=== PATIENT | female | born 1960 | race Two or more races ===

== ENCOUNTER 2021-01-01 12:39 | Outpatient (REF) | payer MEDICAID, SELFPAY ==
--- NOTE | ~2021-01-01 | MM_ITS ---
EXAMINATION: MM DIAGNOSTIC DIGITAL BREAST TOMOSYNTHESIS, RIGHT CLINICAL INFORMATION: Probable benign nodule 3:00 right breast for six-month follow-up. No known family history breast cancer. The lifetime risk of breast cancer based on the Tyrer-Cuzick Model is 4%. COMPARISON: Mammography: 07/04/2020, 06/13/2020 (BI-RADS 0), 02/28/2019; targeted ultrasound right breast 07/04/2020 TECHNIQUE: Digital breast tomosynthesis is performed in both the craniocaudal and mediolateral oblique views along with computer-aided detection (CAD). Synthesized 2D images are generated from the tomosynthesis. FINDINGS: There are scattered areas of fibroglandular density (ACR BI-RADS breast composition Category b). The nodular asymmetry mid 3:00 position is stable in size and contour. There is no developing density. No interval mass or architectural abnormality or abnormal calcifications. Remainder of the right breast is unremarkable. Results are provided to the patient at time of visit by the technologist. Right breast finding will be reassessed again at time of annual bilateral mammography, due in 6 months. MM/MM tomosynthesis diagnostic RT IMPRESSION: Stable nodular asymmetry mid 3:00 right breast. ASSESSMENT: BI-RADS 3: Probably Benign RECOMMENDATION: Diagnostic mammography at time of bilateral annual mammography, due in 6 months. This patient's information was entered into a reminder system with a target due date for their next mammogram.
== END 2021-01-01 12:40 | disposition home or self-care (01) ==
LOC: HO.MAMMO 12:39
PROVIDERS: PCP Family Medicine; Visit Provider Family Medicine
DX: N63.15 Unspecified lump in the right breast, overlapping quadrants (principal)
CPT/HCPCS: 77061; 77065

== ENCOUNTER 2021-07-09 10:14 | Outpatient (REF) | payer MEDICAID, SELFPAY | END 2021-07-09 10:15 | disposition home or self-care (01) | LOC: HO.LAB 10:14 | PROVIDERS: PCP Family Medicine; Visit Provider Internal Medicine | DX: Z20.822 Contact with and (suspected) exposure to COVID-19 (principal) | CPT/HCPCS: C9803; U0003; U0005 ==

== ENCOUNTER 2021-07-09 13:53 | Outpatient (REF) | payer MEDICAID, SELFPAY ==
--- NOTE | ~2021-07-09 | MM_ITS ---
EXAMINATION: MM DIAGNOSTIC DIGITAL BREAST TOMOSYNTHESIS, BILATERAL CLINICAL INFORMATION: Due for yearly. Also follow-up probable benign nodule mid medial right breast, probable benign ultrasound correlate. Assess for developing density. The lifetime risk of breast cancer based on the Tyrer-Cuzick Model is 4%. COMPARISON: Mammography: 01/01/2021, 07/04/2020, 06/13/2020 (BI-RADS 0), 02/28/2019, 02/18/2018, targeted right breast ultrasound 07/04/2020. TECHNIQUE: Digital breast tomosynthesis is performed in both the craniocaudal and mediolateral oblique views along with computer-aided detection (CAD). Synthesized 2D images are generated from the tomosynthesis. Additional left MLO view is provided. FINDINGS: The breasts are almost entirely fatty (ACR BI-RADS breast composition Category a). Background stromal densities are stable. There is no developing density. No significant mass or architectural abnormality. No abnormal calcifications. The axilla and skin contours are unremarkable. The nodular asymmetry central 3:00 mid right breast is stable, likely corresponding to small cyst on prior ultrasound. It will be reassessed again in 6 months. Results are provided to the patient at time of visit by the technologist. MM/MM tomosynthesis diagnostic BI IMPRESSION: 1. Right: No significant changes from prior diagnostic exams. No developing density. 2. Left: No mammographic evidence of malignancy. ASSESSMENT: BI-RADS 3: Probably Benign RECOMMENDATION: Diagnostic right mammography in 6 months. This patient's information was entered into a reminder system with a target due date for their next mammogram.
== END 2021-07-09 13:54 | disposition home or self-care (01) ==
LOC: HO.MAMMO 13:53
PROVIDERS: PCP Family Medicine; Visit Provider Family Medicine
DX: R92.2 Inconclusive mammogram (principal)
CPT/HCPCS: 77062; 77066

== ENCOUNTER 2021-10-29 08:54 | Outpatient (REF) | payer MEDICAID, SELFPAY ==
[2021-10-29 10:37] LABS: Hematocrit 38.5 % (37.0-47.0); Hemoglobin 12.3 g/dl (12.0-16.0); Mean Corpuscular HGB Conc 31.9 g/dl (31.0-35.0); Mean Corpuscular Hemoglobin 30.9 pg (27.0-33.0); Mean Corpuscular Volume 96.7 fL (80.0-98.0); Mean Platelet Volume 11.1 fL (9.4-12.3); Platelet Count 213 X10*3/uL (160-400); Red Blood Count 3.98 X10*6/uL (4.20-5.50); Red Cell Distribution Width 14.2 % (11.0-16.0); White Blood Count 6.1 X10*3/uL (4.8-10.8)
[2021-10-29 11:42] LABS: Alanine Aminotransferase 13 U/L (0-31); Albumin Level 3.8 g/dL (3.5-5.0); Alkaline Phosphatase 71 U/L (39-117); Anion Gap 8 (12-20); Aspartate Amino Transferase 20 U/L (5-31); Bilirubin Total 0.4 mg/dL (0.0-1.0); Blood Urea Nitrogen 14 mg/dL (9-16); Calcium 9.8 mg/dL (8.4-10.2); Carbon Dioxide 30 mmol/L (22-29); Chloride 109 mmol/L (96-108); Estimated Glomerular Filt Rate > 60; Glucose Random 101 mg/dL (60-115); Potassium 4.1 mmol/L (3.3-5.1); Sodium 143 mmol/L (135-145); Total Protein 7.6 g/dL (6.5-8.0)
[2021-11-03 05:41] LABS: Vitamin D 25-OH, D2 38 ng/mL; Vitamin D 25-OH, D3 6 ng/mL; Vitamin D 25-OH, Total 44 ng/mL (30-100)
== END 2021-10-29 08:55 | disposition home or self-care (01) ==
LOC: HO.LAB 08:54
PROVIDERS: PCP Family Medicine; Referring Provider Family Medicine; Visit Provider Nurse Practitioner Family
DX: K21.9 Gastro-esophageal reflux disease without esophagitis (principal); K59.03 Drug induced constipation; E55.9 Vitamin D deficiency, unspecified
CPT/HCPCS: 36415; 80053; 82306; 85027; 99202

== ENCOUNTER 2022-01-06 09:56 | Outpatient (REF) | payer MEDICAID, SELFPAY ==
--- NOTE | ~2022-01-06 | MM_ITS ---
EXAMINATION: MM DIAGNOSTIC DIGITAL BREAST TOMOSYNTHESIS, RIGHT US DIAGNOSTIC ULTRASOUND BREAST, RIGHT CLINICAL INFORMATION: Follow-up benign-appearing nodule medial right breast, possibly cyst on prior ultrasound. The lifetime risk of breast cancer based on the Tyrer-Cuzick Model is 4%. COMPARISON: Mammography: 12/29/2020, 07/04/2020, 06/13/2020 (BI-RADS 0), 02/28/2019; targeted right breast ultrasound 07/04/2020 TECHNIQUE: Digital breast tomosynthesis is performed in both the craniocaudal and mediolateral oblique views along with computer-aided detection (CAD). Synthesized 2D images are generated from the tomosynthesis. Additional spot CC and spot MLO views are obtained. Ultrasound right breast is targeted to the upper inner quadrant using grayscale imaging and color Doppler without and with harmonics. FINDINGS: There are scattered areas of fibroglandular density (ACR BI-RADS breast composition Category b). The focal asymmetric density mid inner right breast for follow-up appear slightly more prominent when compared with the prior exam 06/13/2020. Margins are incompletely visualized. The remainder of the right breast is unremarkable. There are no abnormal calcifications. The axilla and skin contours are unremarkable. Ultrasound demonstrates macrolobulated inhomogeneous hypoechoic predominantly cystic nodule 2:30 o'clock position 8 cm from nipple and measuring 0.7 cm. There is subtle increased through-transmission of sound. No visible internal color flow. Results are discussed with the patient at time of visit. Finding may represent a complicated cyst possibly with apocrine metaplasia and/or fibrocystic microcysts. Given the increase in size and inhomogeneous appearance on ultrasound, recommend ultrasound-guided core biopsy to confirm benignity. MM/MM tomosynthesis diagnostic RT IMPRESSION: -Focal nodular asymmetric density mid medial right breast slightly increased. Margins incompletely characterized. -There is ultrasound correlate in this area. ASSESSMENT: BI-RADS 4: Suspicious (subcategory 4A: Low suspicion for malignancy) RECOMMENDATION: Ultrasound-guided core biopsy right breast. This patient's information was entered into a reminder system with a target due date for their next mammogram.
== END 2022-01-06 09:57 | disposition home or self-care (01) ==
LOC: HO.MAMMO 09:56
PROVIDERS: PCP Family Medicine; Visit Provider Family Medicine
DX: R92.2 Inconclusive mammogram (principal)
CPT/HCPCS: 76642; 77061; 77065

== ENCOUNTER 2022-01-08 08:20 | Outpatient (REF) | payer MEDICAID, SELFPAY ==
--- NOTE | ~2022-01-08 | MM_ITS ---
EXAMINATION: ULTRASOUND GUIDED CORE BIOPSY BREAST, RIGHT POST PROCEDURE DIGITAL BREAST TOMOSYNTHESIS, RIGHT CLINICAL INFORMATION: Focal asymmetric density mid inner right breast on mammography with ultrasound correlate, possibly complicated cyst, fibrocystic microcysts, or apocrine metaplasia. COMPARISON: Mammography and targeted right breast ultrasound 01/06/2022. FINDINGS: Proper informed consent is obtained from the patient after discussion of the procedure, potential risks and complications, and alternatives. Patient was given an opportunity for questions. The patient appeared to understand. The patient consented to the procedure and signed the consent form. Consent and procedure assisted by hospital provided neurologist. GUIDANCE: Ultrasound-guided; aseptic technique. LESION: Hypoechoic complicated cystic lesion mid inner right breast measuring 0.7 cm. APPROACH: Oblique mediolateral. ANESTHESIA: 15 mL carbonated 1% lidocaine. DERMATOTOMY: Single skin rodney dermatotomy performed. NEEDLE: 14-gauge Achieve core biopsy device with 13.5-gauge co-axial guide needle. CORES: 5. CLIP: HydroMARK; shape: open coil. POST PROCEDURE DIGITAL BREAST TOMOSYNTHESIS, RIGHT: The post biopsy mammogram is performed in separate room using separate digital mammography equipment from the biopsy procedure. CC and ML views are obtained. Synthesized 2-D images are generated from the tomography. There are scattered areas of fibroglandular density (breast composition category: b). The clip marker is in position expected position. It is difficult to visualize the index lesion following local anesthesia and tissue sampling. No gross hematoma. The patient tolerated the procedure well. No immediate complications. Home instructions reviewed with the patient. Final pathology results are pending. MM/MM tomosynthesis diagnostic RT IMPRESSION: 1. Status post ultrasound-guided core biopsy right breast. 2. Clip placed: HydroMARK; shape: open coil. 3. Pathology pending. An addendum report will be issued.
[2022-01-08] MEDS: Lidocaine HCl 1 % 20 ML VIAL 12 ML SUBCUT (11:48)
[2022-01-08] MEDS: Sodium Bicarbonate 8.4% 50 MEQ/50 ML VIAL SUBCUT (11:49)
== END 2022-01-08 08:21 | disposition home or self-care (01) ==
LOC: HO.MAMMO 08:20
PROVIDERS: PCP Family Medicine; Visit Provider Surgery
DX: N63.15 Unspecified lump in the right breast, overlapping quadrants (principal); Z80.41 Family history of malignant neoplasm of ovary
CPT/HCPCS: 19083; 77061; 77065; 88305; 88341; 88342; 88360; 99202; A4648

== ENCOUNTER → 2022-01-15 09:26 | Outpatient (BNVA) | payer MEDICAID, SELFPAY | PROVIDERS: PCP Family Medicine; Visit Provider Surgery | DX: D05.10 Intraductal carcinoma in situ of unspecified breast (principal); Z17.0 Estrogen receptor positive status [ER+]; N63.10 Unspecified lump in the right breast, unspecified quadrant; E66.9 Obesity, unspecified; Z68.38 Body mass index [BMI] 38.0-38.9, adult; Z80.41 Family history of malignant neoplasm of ovary | CPT/HCPCS: 99212 ==

== ENCOUNTER → 2022-01-20 15:54 | Outpatient (BNV) | payer MEDICAID, OTHER, SELFPAY | PROVIDERS: PCP Family Medicine; Referring Provider Surgery; Visit Provider Internal Medicine | DX: D05.11 Intraductal carcinoma in situ of right breast (principal) | CPT/HCPCS: 99204; 99214; G2211 ==

== ENCOUNTER 2022-01-21 06:52 | Day surgery (SDC) | payer MEDICAID, SELFPAY ==
--- NOTE | 2022-01-20 09:36 | HO.ANESPROP2 ---
Documented by User: Lexi Kim NP 01/20/22 09:37 HPI - Anesthesia Eval Consult details Narrative: 61yo F for Right Breast Lumpectomy/Needle Loc PMFSH Active Problems Active Problems: All Active Problems (Updated 01/15/22 @ 09:32 by Ivan Valdes MD) Ductal carcinoma in situ (DCIS) of breast (Acute) Family history of ovarian cancer (Acute) Breast nodule (Acute) Past Medical History Medical History Allergic rhinitis Arthritis Breast nodule Depression Ductal carcinoma in situ (DCIS) of breast Family history of ovarian cancer GERD (gastroesophageal reflux disease) Obesity Family History Family History Sister Ovarian cancer HTN (hypertension) Hyperlipidemia Surgical History Surgical History Hx of cholecystectomy Hx of colonoscopy Hx of tubal ligation Social History Social History (Updated 01/20/22 @ 16:09 by Trice Zepeda PROMOTIONAL MARKETING ANALYST) Household Members: Spouse and Children [facility] Are you a primary career developer to a significant other at home: No Do you presently have visiting nurse or other home services: No Alcohol intake: current Alcohol intake frequency: does not drink Patient Tobacco Use Status: Former Tobacco user Quit Date: 1991 Tobacco use type: Cigarette Years Smoked: 5 Smoked in Last 30 Days: No Use of substances other than those prescribed or required for medical reasons: No Are you DNR?: No Advance Directives: No Advance Directives Information Provided: Yes service: No Current occupational status: disabled Meds Allergies Allergy/AdvReac Type Severity Reaction Status Date / Time No Known Allergies Allergy Verified 01/21/22 07:37 [No Known Allergies*] Home Medications Medication Instructions Recorded Confirmed Last Taken Type bupropion HCl 100 mg tablet,12 hr 100 mg PO BEDTIME 10/28/21 01/20/22 Unknown History sustained-release (Wellbutrin SR) bupropion HCl 150 mg 24 hr tablet, 150 mg PO QAM 10/28/21 01/20/22 Unknown History extended release (Wellbutrin XL) clonazepam 1 mg tablet 1 mg PO BEDTIME 10/28/21 01/20/22 Unknown History duloxetine 60 mg capsule,delayed 60 mg PO DAILY 10/28/21 01/20/22 Unknown History release (Cymbalta) famotidine 20 mg tablet (Pepcid) 20 mg PO DAILY 10/28/21 01/20/22 Unknown History fluticasone propionate 50 1 inh INHALATION BID 10/28/21 01/20/22 Unknown History mcg/actuation blister powder for inhalation gabapentin 300 mg capsule 300 mg PO DAILY 10/28/21 01/20/22 Unknown History loratadine 10 mg tablet (Claritin) 10 mg PO DAILY 10/28/21 01/20/22 Unknown History nabumetone 500 mg tablet 500 mg PO BID 10/28/21 01/20/22 Unknown History omeprazole 20 mg capsule,delayed 20 mg PO DAILY 10/28/21 01/20/22 Unknown History release simethicone 125 mg chewable tablet 125 mg PO TID PRN 10/28/21 01/20/22 Unknown History (Gas Relief (simethicone)) ferrous gluconate 324 mg (38 mg 324 mg PO DAILY 01/08/22 01/20/22 01/20/22 History iron) tablet gabapentin 400 mg capsule 400 mg PO TID 01/08/22 01/20/22 Unknown History Exam Exam Date and Time: January 20, 2022 0936 Pertinent Lab Results Pertinent Lab Results: Laboratory Tests 10/29/21 10/29/21 10:00 10:00 WBC 6.1 Hgb 12.3 Hct 38.5 Plt Count 213 Sodium 143 Potassium 4.1 Chloride 109 H Carbon Dioxide 30 H BUN 14 Creatinine 0.89 Assessment and Plan Assessment Anesthesia Assessment: Chart Reviewed Documented by User: Roshan Altamirano MD 01/21/22 09:50 [facility] Past Medical History Medical History Allergic rhinitis Arthritis Breast nodule Depression Ductal carcinoma in situ (DCIS) of breast Family history of ovarian cancer GERD (gastroesophageal reflux disease) Obesity Family History Family History Sister Ovarian cancer HTN (hypertension) Hyperlipidemia Family history of problems with anesthesia: No Surgical History Surgical History Hx of cholecystectomy Hx of colonoscopy Hx of tubal ligation History of Problems with Anesthesia: No Social History Social History (Updated 01/20/22 @ 16:09 by Trice Zepeda CMA) Household Members: Spouse and Children [facility] Are you a primary career developer to a significant other at home: No Do you presently have visiting nurse or other home services: No Alcohol intake: current Alcohol intake frequency: does not drink Patient Tobacco Use Status: Former Tobacco user Quit Date: 1991 Tobacco use type: Cigarette Years Smoked: 5 Smoked in Last 30 Days: No Use of substances other than those prescribed or required for medical reasons: No Are you DNR?: No Advance Directives: No Advance Directives Information Provided: Yes service: No Current occupational status: disabled Meds Allergies Allergy/AdvReac Type Severity Reaction Status Date / Time No Known Allergies Allergy Verified 01/21/22 07:37 [No Known Allergies*] Home Medications Medication Instructions Recorded Confirmed Last Taken Type bupropion HCl 100 mg tablet,12 hr 100 mg PO BEDTIME 10/28/21 01/20/22 Unknown History sustained-release (Wellbutrin SR) bupropion HCl 150 mg 24 hr tablet, 150 mg PO QAM 10/28/21 01/20/22 Unknown History extended release (Wellbutrin XL) clonazepam 1 mg tablet 1 mg PO BEDTIME 10/28/21 01/20/22 Unknown History duloxetine 60 mg capsule,delayed 60 mg PO DAILY 10/28/21 01/20/22 Unknown History release (Cymbalta) famotidine 20 mg tablet (Pepcid) 20 mg PO DAILY 10/28/21 01/20/22 Unknown History fluticasone propionate 50 1 inh INHALATION BID 10/28/21 01/20/22 Unknown History mcg/actuation blister powder for inhalation gabapentin 300 mg capsule 300 mg PO DAILY 10/28/21 01/20/22 Unknown History loratadine 10 mg tablet (Claritin) 10 mg PO DAILY 10/28/21 01/20/22 Unknown History nabumetone 500 mg tablet 500 mg PO BID 10/28/21 01/20/22 Unknown History omeprazole 20 mg capsule,delayed 20 mg PO DAILY 10/28/21 01/20/22 Unknown History release simethicone 125 mg chewable tablet 125 mg PO TID PRN 10/28/21 01/20/22 Unknown History (Gas Relief (simethicone)) ferrous gluconate 324 mg (38 mg 324 mg PO DAILY 01/08/22 01/20/22 01/20/22 History iron) tablet gabapentin 400 mg capsule 400 mg PO TID 01/08/22 01/20/22 Unknown History Exam Airway Mallampati Class: I TM Dist: >3cm Neck ROM: Full Loose/Missing/Broken Teeth: Yes Heart: ok Lungs: ok Assessment and Plan Final Anesthetic Review Family History of Problems with Anesthesia: No History of Problems with Anesthesia: No ASA Class: II Final Preanesthetic Review: No Changes in Pt Med Stat, Meds/Allgs Chart Reviewed, Consent Obtained/Reviewed and Anes Risks/Benef Reviewed Patient Risk: Low Procedure Risk: Low Anesthetic Plan Anesthetic Plan: GA and Agree w/ Assess. and Plan Disposition: Standard PACU
[2022-01-21] VITALS (7 sets, daily range): BP systolic 125–140; BP diastolic 67–80; PULSE 52–60; RESP 16–18; TEMP 36.3–36.6; O2SAT 98–100; BMI 37.9
--- NOTE | ~2022-01-21 | MM_ITS ---
EXAMINATION: MM DIAGNOSTIC DIGITAL MAMMOGRAPHY, RIGHT CLINICAL INFORMATION: Specimen radiograph following lumpectomy. COMPARISON: Mammography: January 08, 2022 and 01/06/2022. TECHNIQUE: Specimen radiograph. FINDINGS: There are scattered areas of fibroglandular density (ACR BI-RADS breast composition Category b). The localization needle and wire is seen; however, marking clip is not included within the specimens. Vascular calcifications which were adjacent to the clip are included within the specimen The above information was called to the operating room to Dr. Valdes. MM/MM diagnostic mammo unilat LT IMPRESSION: Specimen radiograph does not include marking clip. ASSESSMENT: BI-RADS (Post Biopsy Clip Placement) RECOMMENDATION: Await pathology report to ensure that the targeted specimen lies within the tissue. If not, then repeat mammogram with localization of marking clip is recommended.
--- NOTE | ~2022-01-21 | US_ITS ---
PROCEDURE: US-GUIDED BREAST NEEDLE LOCALIZATION, RIGHT CLINICAL INFORMATION: Intraductal carcinoma in situ right breast 2 o'clock position, 8 cm from the nipple. COMPARISON: 01/08/2022 and 01/06/2022. TECHNIQUE: Ultrasound-guided needle localization. FINDINGS/PROCEDURE: There were technical difficulties with the mammographic unit and, therefore, needle localization with mammography was not performed. Ultrasound-guided needle localization was performed. Informed consent was obtained from the patient prior to the procedure. During this process, the procedure and potential alternatives were explained, along with the intended outcome and benefits. The risks of the procedure, as well as the risk of not doing the procedure, were discussed. The patient was given the opportunity to ask questions regarding the procedure and appeared competent to make medical decisions. A signed consent form which documents this discussion was placed in the medical record. Using sterile technique and ultrasound guidance, a Winchester needle was directed from a superior medial approach through the irregular marginated hypoechoic mass containing radiopaque marking clip. The wire was deployed and was seen to coil distal to the lesion. The needle was locked in place. US/US breast needle loc RT IMPRESSION: Needle localization of right breast lesion 2 o'clock position.
[2022-01-21] MEDS: Lactated Ringers 1,000 ML 100 ML IVCONT (07:26)
[2022-01-21] MEDS: Lidocaine HCl 1 % 20 ML VIAL 3 ML SUBCUT (09:42)
--- NOTE | 2022-01-21 09:47 | MHC.SHP ---
Pre-Procedural Eval Section A Date of Service: 01/21/22 The patient is an INPATIENT: No Changes since office visit: No Cold of Flu in the past 2 weeks, No New Medical Problems, No Changes in Medication and No Patient answered all questions The History & Physical has been completed within 30 days and I have reviewed it.: Yes Section B Chief Complaint: carcinoma in situ of breast hx malignant Allergies: Allergies Allergy/AdvReac Type Severity Reaction Status Date / Time No Known Allergies Allergy Verified 01/21/22 07:37 [No Known Allergies*] Plan I have reviewed the history and physical and performed a pertinent physical examination on my patient. No changes have occurred unless specified.
[2022-01-21] MEDS: fentaNYL citrate/PF 100 MCG/2 ML VIAL 50 MCG IVPUSH (11:36)
--- NOTE | 2022-01-21 11:37 | W.PM.OPN ---
Operative Note Operative Note Date of Service: 01/21/22 Narrative: Preop diagnosis: DCIS, right breast Postop diagnosis: DCIS right breast Procedure: Lumpectomy with needle localization, with excision of additional margins, right breast Surgeon: Ivan Valdes MD circulation assistant: OBDULIA Robert The patient is a 61 year female who had an US guided biopsy of right breast nodule showing DCIS. She is therefore here to proceed with lumpectomy with needle localization. She understood the technique of the procedure and she was aware of the risks, benefits, and alternatives. The patient had undergone needle localization prior to being brought to the OR. I had reviewed this with Dr. Morris of Radiology. Unfortunately, the mammogram machine was down so there were no mammogram pictures taken to correlate with needle localization with the ultrasound. Dr. Morris had stated that was visualization of the lesion and the clip with ultrasound was not as optimal as the mammogram pictures. He however stated that he was confident that the localizing needle was through the biopsy site. She was brought to the operating room. She was placed in spine position under general anesthesia via laryngeal mask airway. The right breast was prepped and draped in usual sterile fashion. The localizing needle was in place and this was prepped along with the breast as well. The localizing needle entered almost perpendicular to the breast on the medial aspect and going just slightly laterally. A surgical time-out was done. The patient received cefazolin 2 g IV preoperatively. I marked the planned line of incision was tangential to the entry point of the needle. This was done using lidocaine 1%. I made an incision using blade 15. And this was carried down with electrocautery through the full-thickness of the skin subcutaneous fat down to the breast tissue. I then used the curved Chu to divide breast tissue surrounding the needle circumferentially. Periodically palpated for the localizing needle as we divided deeper to make sure that we were going the right direction. I proceeded to then make sure that generous tissue surrounding the needle all the way past the needle in the posterior and deep margins. I completed excision of this breast tissue surrounding the needle and this was sent for immediate re-ray and immediate gross. I had marked the superior margin with a short stitch in the lower margin with a long stitch. I his irrigated the excision cavity. I cauterized oozing areas. There was 1 particular area with persistent oozing and I controlled this with a [id number] Dexon 3-0 stitch. Once hemostasis was ensured I proceeded to reapposed deep breast tissue with Dexon 3-0 interrupted sutures We then awaited for a phone call from the radiologist as well as the pathologist. We received a phone call from the radiologist stating that the biopsy clip was not seen in the specimen. We therefore we open the excision site and reexcise generous and wider margins. I therefore resubmitted for margins on the 1)superior medial, 2) lateral and 3)inferior/deep. We then observed for hemostasis on the large cavity. Cauterized oozing areas. Once hemostasis was ensured, I copiously irrigated. We reapposed breast tissue again with Dexon 3-0 interrupted sutures. Skin closure was achieved with Dexon 4-0 subcuticular running stitch. The incision was infiltrated with Marcaine 0.5% for postop analgesia. Prior to the closing, I had rediscussed the re-ray of of the additional margins with the radiologist. He could not identify the biopsy clip on the additional margins. I had discussed this as well with the pathologist. Since we already had excise of very large amount of breast tissue, I decided that we will await for the final path report to see if biopsy site is within the specimens. I had informed the pathologist with about this as well. Dressings were applied. The incision was infiltrated with Marcaine 0.5% for postop analgesia and the procedure was completed The patient tolerated procedure well. There were no complication noted. Initial final counts of sponges and instruments were correct. Estimated blood loss was about 50 cc . The patient was extubated without difficulty and transferred to the recovery room with stable vital signs.
[2022-01-21] MEDS: Ketorolac Tromethamine 30 MG/ML VIAL 15 MG IVPUSH (11:41)
[2022-01-21] MEDS: oxyCODONE HCl Immed Release 5 MG TABLET PO (11:46)
[2022-01-21] MEDS: Acetaminophen 325 MG TABLET 650 MG PO (11:46)
== END 2022-01-21 13:17 | disposition home or self-care (01) ==
PROVIDERS: PCP Family Medicine; Visit Provider Surgery
PROC: (CPT 19301; principal; 2022-01-21 09:00)
DX: D05.11 Intraductal carcinoma in situ of right breast (principal); Z17.0 Estrogen receptor positive status [ER+]; Z80.41 Family history of malignant neoplasm of ovary; J31.0 Chronic rhinitis; F32.9 Major depressive disorder, single episode, unspecified; K21.9 Gastro-esophageal reflux disease without esophagitis; E66.9 Obesity, unspecified; Z68.38 Body mass index [BMI] 38.0-38.9, adult; Z90.49 Acquired absence of other specified parts of digestive tract; Z98.51 Tubal ligation status; Z87.891 Personal history of nicotine dependence
CPT/HCPCS: 19301; 19285; 77065; 88307; 88329; 88341; 88342; 88360; A4648; J0690; J1885; J2250; J3010

== ENCOUNTER → 2022-02-12 15:40 | Outpatient (BNVA) | payer MEDICAID, SELFPAY | PROVIDERS: PCP Family Medicine; Visit Provider Surgery | DX: Z48.3 Aftercare following surgery for neoplasm (principal); D05.11 Intraductal carcinoma in situ of right breast | CPT/HCPCS: 99212 ==

== ENCOUNTER → 2022-02-26 09:14 | Outpatient (BNVA) | payer MEDICAID, SELFPAY | PROVIDERS: PCP Family Medicine; Referring Provider Family Medicine; Visit Provider Surgery | DX: D05.10 Intraductal carcinoma in situ of unspecified breast (principal); Z80.41 Family history of malignant neoplasm of ovary | CPT/HCPCS: 99212 ==

== ENCOUNTER 2022-03-03 12:47 | Outpatient (REF) | payer MEDICAID, SELFPAY ==
--- NOTE | ~2022-03-03 | MM_ITS ---
EXAMINATION: MM DIAGNOSTIC DIGITAL BREAST TOMOSYNTHESIS, RIGHT CLINICAL INFORMATION: DCIS status post ultrasound-guided needle localization and excision 01/21/2022. Biopsy clip marker is not found in the excised specimen. Short interval follow-up to assess for clip marker in breast. COMPARISON: Mammography: 01/08/2022, 01/06/2022, ultrasound right breast 01/06/2022, ultrasound-guided core biopsy 01/08/2022, ultrasound-guided needle localization 01/21/2022; specimen radiographs 01/21/2022. TECHNIQUE: Digital breast tomosynthesis is performed in both the craniocaudal and mediolateral views along with computer-aided detection (CAD). Synthesized 2D images are generated from the tomosynthesis. FINDINGS: There are scattered areas of fibroglandular density (ACR BI-RADS breast composition Category b). There are postoperative changes with minor scarring. There is a hematoma/seroma within the lumpectomy site, bilobed contour and overall size approximately 3.3 x 3.3 x 4.7 cm. The biopsy clip marker is not visualized. The remainder of the right breast is unremarkable. Results are provided to the patient at time of visit by the technologist. Results called to medical insurance claims specialist (Marta) for Dr. Valdes on 03/03/2022. MM/MM tomosynthesis diagnostic RT IMPRESSION: -Post lumpectomy changes central inner right breast with hematoma/seroma measuring approximately 3.3 x 3.3 x 4.7 cm. -The biopsy clip marker from the original ultrasound-guided tissue sampling is not demonstrated in the right breast. ASSESSMENT: BI-RADS 2: Benign RECOMMENDATION: Continue with surgical management plans. This patient's information was entered into a reminder system with a target due date for their next mammogram.
== END 2022-03-03 12:48 | disposition home or self-care (01) ==
LOC: HO.MAMMO 12:47
PROVIDERS: Visit Provider Surgery
DX: D05.10 Intraductal carcinoma in situ of unspecified breast (principal)
CPT/HCPCS: 77061; 77065

== ENCOUNTER 2022-04-08 06:50 | Day surgery (SDC) | payer MEDICAID, SELFPAY ==
--- NOTE | 2022-04-07 10:55 | P.CONAN_ITS ---
Documented by User: Lexi Kim NP 04/07/22 11:05 HPI - Anesthesia Eval Consult details Narrative: 61yo F for Right Breast Excision for wider margins s/p lumpectomy 12/2021 with GA-ETT 7 PMFSH Active Problems Active Problems: All Active Problems (Updated 01/20/22 @ 16:09 by Thania Cazares MD) Ductal carcinoma in situ (DCIS) of breast (Acute) Family history of ovarian cancer (Acute) Breast nodule (Acute) Past Medical History Medical History Allergic rhinitis Arthritis Breast nodule Depression Ductal carcinoma in situ (DCIS) of breast Family history of ovarian cancer GERD (gastroesophageal reflux disease) Obesity Family History Family History Sister Ovarian cancer HTN (hypertension) Hyperlipidemia Family history of problems with anesthesia: No Surgical History Surgical History History of lumpectomy of right breast Hx of cholecystectomy Hx of colonoscopy Hx of tubal ligation History of Problems with Anesthesia: No Social History Social History Household Members: Spouse and Children [facility] Are you a primary direct care provider to a significant other at home: No Do you presently have visiting nurse or other home services: No Alcohol intake: current Alcohol intake frequency: does not drink Patient Tobacco Use Status: Former Tobacco user Quit Date: 30 yrs ago Tobacco use type: Cigarette Years Smoked: 5 Use of substances other than those prescribed or required for medical reasons: No Are you DNR?: No Advance Directives: No Advance Directives Information Provided: Yes service: No Current occupational status: disabled Meds Allergies Allergy/AdvReac Type Severity Reaction Status Date / Time No Known Allergies Allergy Verified 04/02/22 13:32 [No Known Allergies*] Home Medications Medication Instructions Recorded Confirmed Last Taken Type bupropion HCl 100 mg tablet,12 hr 100 mg PO BEDTIME 10/28/21 04/07/22 Unknown History sustained-release (Wellbutrin SR) bupropion HCl 150 mg 24 hr tablet, 150 mg PO QAM 10/28/21 04/07/22 Unknown History extended release (Wellbutrin XL) clonazepam 1 mg tablet 1 mg PO BEDTIME 10/28/21 04/07/22 Unknown History duloxetine 60 mg capsule,delayed 60 mg PO DAILY 10/28/21 04/07/22 Unknown History release (Cymbalta) famotidine 20 mg tablet (Pepcid) 20 mg PO DAILY 10/28/21 04/07/22 Unknown History fluticasone propionate 50 1 inh INHALATION BID 10/28/21 04/07/22 Unknown History mcg/actuation blister powder for inhalation (Flovent Diskus) loratadine 10 mg tablet (Claritin) 10 mg PO DAILY 10/28/21 04/07/22 Unknown History nabumetone 500 mg tablet 500 mg PO BID 10/28/21 04/07/22 Unknown History omeprazole 20 mg capsule,delayed 20 mg PO DAILY 10/28/21 04/07/22 Unknown History release simethicone 125 mg chewable tablet 125 mg PO TID PRN 10/28/21 04/07/22 Unknown History (Gas Relief (simethicone)) ferrous gluconate 324 mg (38 mg 324 mg PO DAILY 01/08/22 04/07/22 01/20/22 History iron) tablet gabapentin 400 mg capsule 400 mg PO TID 01/08/22 04/07/22 Unknown History Exam Exam Date and Time: April 07, 2022 1055 Pertinent Lab Results Pertinent Lab Results: Laboratory Tests ? 10/29/21 10/29/21 ? 10:00 10:00 WBC ?6.1 ? Hgb ?12.3 ? Hct ?38.5 ? Plt Count ?213 ? Sodium ? ?143 Potassium ? ?4.1 Chloride ? ?109 H Carbon Dioxide ? ?30 H BUN ? ?14 Creatinine ? ?0.89 Assessment and Plan Assessment Anesthesia Assessment: Chart Reviewed Final Anesthetic Review Family History of Problems with Anesthesia: No History of Problems with Anesthesia: No Documented by User: Oliver Perales MD 04/08/22 10:37 [facility] Past Medical History Medical History Allergic rhinitis Arthritis Breast nodule Depression Ductal carcinoma in situ (DCIS) of breast Family history of ovarian cancer GERD (gastroesophageal reflux disease) Obesity Family History Family History Sister Ovarian cancer HTN (hypertension) Hyperlipidemia Surgical History Surgical History History of lumpectomy of right breast Hx of cholecystectomy Hx of colonoscopy Hx of tubal ligation Social History Social History Household Members: Spouse and Children [facility] Are you a primary direct care provider to a significant other at home: No Do you presently have visiting nurse or other home services: No Alcohol intake: current Alcohol intake frequency: does not drink Patient Tobacco Use Status: Former Tobacco user Quit Date: 30 yrs ago Tobacco use type: Cigarette Years Smoked: 5 Use of substances other than those prescribed or required for medical reasons: No Are you DNR?: No Advance Directives: No Advance Directives Information Provided: Yes service: No Current occupational status: disabled Meds Allergies Allergy/AdvReac Type Severity Reaction Status Date / Time No Known Allergies Allergy Verified 04/02/22 13:32 [No Known Allergies*] Home Medications Medication Instructions Recorded Confirmed Last Taken Type bupropion HCl 100 mg tablet,12 hr 100 mg PO BEDTIME 10/28/21 04/07/22 Unknown History sustained-release (Wellbutrin SR) bupropion HCl 150 mg 24 hr tablet, 150 mg PO QAM 10/28/21 04/07/22 Unknown History extended release (Wellbutrin XL) clonazepam 1 mg tablet 1 mg PO BEDTIME 10/28/21 04/07/22 Unknown History duloxetine 60 mg capsule,delayed 60 mg PO DAILY 10/28/21 04/07/22 Unknown History release (Cymbalta) famotidine 20 mg tablet (Pepcid) 20 mg PO DAILY 10/28/21 04/07/22 Unknown History fluticasone propionate 50 1 inh INHALATION BID 10/28/21 04/07/22 Unknown History mcg/actuation blister powder for inhalation (Flovent Diskus) loratadine 10 mg tablet (Claritin) 10 mg PO DAILY 10/28/21 04/07/22 Unknown History nabumetone 500 mg tablet 500 mg PO BID 10/28/21 04/07/22 Unknown History omeprazole 20 mg capsule,delayed 20 mg PO DAILY 10/28/21 04/07/22 Unknown History release simethicone 125 mg chewable tablet 125 mg PO TID PRN 10/28/21 04/07/22 Unknown History (Gas Relief (simethicone)) ferrous gluconate 324 mg (38 mg 324 mg PO DAILY 01/08/22 04/07/22 01/20/22 History iron) tablet gabapentin 400 mg capsule 400 mg PO TID 01/08/22 04/07/22 Unknown History Exam Airway Mallampati Class: I TM Dist: >3cm Neck ROM: Full Loose/Missing/Broken Teeth: Yes Assessment and Plan Assessment Anesthesia Assessment: Anesthesia Plan Discussed Final Anesthetic Review NPO: Yes ASA Class: III Final Preanesthetic Review: No Changes in Pt Med Stat, Meds/Allgs Chart Reviewed, Consent Obtained/Reviewed and Anes Risks/Benef Reviewed Patient Risk: Intermediate Procedure Risk: Low Anesthetic Plan Anesthetic Plan: GA Disposition: Standard PACU
[2022-04-08] VITALS (7 sets, daily range): BP systolic 118–139; BP diastolic 65–80; PULSE 56–71; RESP 16–171; TEMP 36.3–36.7; O2SAT 97–100; BMI 38.0
[2022-04-08] MEDS: Lactated Ringers 1,000 ML 100 ML IVCONT (08:03)
--- NOTE | 2022-04-08 08:38 | P.HPSUR_ITS ---
Pre-Procedural Eval Section A Date of Service: 04/08/22 Section B Chief Complaint: Intraductal carcinoma in situ of breast Details of Present Illness: had lumpectomy localization for DCIS last December,. margins were closed on the deep and inferior aspect so excision is re commended for wider margins Relevant Family History (Specify if Yes): No Relevant Social History: None Present Medications: see Short Stay Collaborative assessment Medical History: Significant History ( depression, GERD symptoms) Allergies: Allergies Allergy/AdvReac Type Severity Reaction Status Date / Time No Known Allergies Allergy Verified 04/02/22 13:32 [No Known Allergies*] Review of Systems Sugical H&P ROS: Negative: Constitution, Cardiovascular, Respiratory, Neurological, Psychiatric, Hem-Onc, Allergic/Immunologic, Gastrointestinal, Genitourinary, Musculoskeletal, Integumentary, Endocrine and Eyes/Ears/Nose/Throat Exam Surgical H&P Exam: Normal: HEENT, Normal: Heart, Normal: Lungs, Normal: Extremities, Normal: Abdomen, Normal: Skin and Normal: Neurological Plan Diagnosis/Plan: Unchanged I have reviewed the history and physical and performed a pertinent physical examination on my patient. No changes have occurred unless specified.
--- NOTE | 2022-04-08 09:54 | W.PM.OPN ---
Operative Note Operative Note Date of Service: 04/08/22 Narrative: Preop diagnosis: Status post lumpectomy, right breast, for DCIS with close margins Postop diagnosis: The same Procedure: Re-excision for wider margins, deep, inferior, right breast Surgeon: Ivan Valdes MD hardware sales assistant: OBDULIA Lopez The patient is a 61-year-old female who had undergone right breast lumpectomy with needle localization last December, for DCIS. The final path report showed the margins were negative but there were close margins on the inferior and deep aspect of the lumpectomy specimen. She understands the technique of re-excision for wider margins. She was aware of the risks, benefits, and alternatives. She was brought to the operating room and placed supine on the table under general anesthesia via laryngeal mask airway. The right breast was prepped and draped in usual sterile fashion. A surgical time-out was done. the patient received cefazolin 2 g IV preoperatively.The previous incision was on the medial aspect. I infiltrated this area with lidocaine 1%. I made the Incision using blade 15. Along this old incision and this was carried down through the full-thickness of the skin and subcutaneous fat with electrocautery. I then used the curved Chu scissors to divide breast tissue in the inferior aspect of the incision. I extended this the grasping breast tissue with the Allis clamp until I was able to reach the very deep margin. This was right on the chest wall and I divided this with the curved Chu scissors and continued circumferentially to excise this entire area. This was sent as specimen. I examined the The excision site. There was note of pain from the chest wall on the raw exposed pectoralis muscle . I cauterized this to achieve hemostasis. I copiously irrigated. Once hemostasis was ensured, I reapposed the deep tissue with Dexon 3-0 interrupted sutures. Skin closure was then achieved with Dexon 4-0 subcuticular running stitch. The area was infiltrated with Marcaine 0.5% for postop analgesia. Steri-Strips were placed. Dressings were applied and the procedure was completed The patient tolerated the procedure well. There were no complications noted. Initial and final counts of sponges and instruments were correct. Estimated blood loss was about 25 cc The patient was extubated without difficulty and transferred to the recovery room with stable vital signs.
[2022-04-08] MEDS: Acetaminophen 325 MG TABLET 650 MG PO (10:43)
== END 2022-04-08 11:40 | disposition home or self-care (01) ==
PROVIDERS: PCP Family Medicine; Visit Provider Surgery
PROC: (CPT 19120; principal; 2022-04-08 09:10)
DX: D05.11 Intraductal carcinoma in situ of right breast (principal); R07.89 Other chest pain; K21.9 Gastro-esophageal reflux disease without esophagitis; J30.9 Allergic rhinitis, unspecified; Z79.51 Long term (current) use of inhaled steroids; Z79.899 Other long term (current) drug therapy; Z87.891 Personal history of nicotine dependence; Z80.41 Family history of malignant neoplasm of ovary
CPT/HCPCS: 19301; 88307; J0690; J1100; J2250; J2405; J3010

== ENCOUNTER → 2022-05-06 11:58 | Outpatient (BNVA) | payer MEDICAID, SELFPAY | PROVIDERS: PCP Family Medicine; Visit Provider Nurse Practitioner Family | DX: K21.9 Gastro-esophageal reflux disease without esophagitis (principal); K59.01 Slow transit constipation; Z79.899 Other long term (current) drug therapy | CPT/HCPCS: 99212 ==

== ENCOUNTER 2022-06-17 13:36 | Outpatient (REF) | payer MEDICAID, SELFPAY ==
--- NOTE | ~2022-06-17 | MM_ITS ---
EXAMINATION: BONE DENSITOMETRY CLINICAL INDICATION: Hormonal therapy. COMPARISON: Baseline BD dated 01/18/2010. TECHNIQUE: Using a [employer] DXA System (software version: 13.1) manufactured by [employer], dual-energy x-ray absorptiometry was performed of the lumbar spine and left hip. The images are of good technical quality. Summary results are attached. FINDINGS: AP SPINE L2-L4 (excluding L1): The data of L1-L4 has been changed to exclude the L1 vertebral body, because degenerative changes at this level may cause overestimation of lumbar spine density. Current: BMD 1.299 g/cm2, Z-score 1.2, T-score 0.8, normal, 5.1% decrease from baseline (<5% change is not significant). Baseline: BMD 1.369 g/cm2. LEFT FEMUR, NECK: Current: BMD 0.834 g/cm2, Z-score -0.8, T-score -1.5, osteopenia. Baseline: BMD 1.300 g/cm2. LEFT FEMUR, TOTAL: Current: BMD 0.864 g/cm2, Z-score -0.9, T-score -1.1, osteopenia, 33.0% decrease from baseline (<5% change is not significant). Baseline: BMD 1.290 g/cm2. IDENTIFIED RISK FACTORS: Menopause. HISTORY OF FRACTURE: None listed. MEDICATIONS: Calcium. MM/XR DEXA axial skeleton IMPRESSION: 1. DIAGNOSIS: Osteopenia based on the lowest T-score value of -1.5 in the femoral neck applying World Health Organization criteria. 2. 10-YEAR FRACTURE RISK PREDICTION, FRAX: Major osteoporotic fracture (clinical spine, forearm, hip or shoulder) 4.3%. Hip fracture 0.4%. 3. Treatment Recommendations: NOF guidelines recommend consideration for treatment in postmenopausal women and men age 50 and older presenting with the following: -A hip or vertebral (clinical or morphometric) fracture. -T-score less than or equal to -2.5 at the femoral neck or spine after appropriate evaluation to exclude secondary causes. -Low bone mass at the hip or spine and a 10-year fracture probability by FRAX of greater than or equal to 3% for hip fracture or greater than or equal to 20% for major osteoporotic fracture based on the [place] adapted WHO algorithm. 4. Other Recommendations: All treatment decisions require clinical judgment and consideration of individual patient factors, including patient preferences, comorbidities, previous drug use, risk factors not captured in the FRAX model (e.g. frailty, falls, vitamin D deficiency, increased bone turnover, interval significant decline in bone density) and possible under or overestimation of fracture risk by FRAX. Additional medical evaluation for secondary cause of low bone mineral density may be appropriate. FUTURE SCAN RECOMMENDATION: People with diagnosed cases of osteoporosis or at high risk for fracture should have regular bone mineral density tests. For patients eligible for Medicare, routine testing is allowed once every 2 years. The testing frequency can be increased to one year for patients who have rapidly progressing disease, those who are receiving or discontinuing medical therapy to restore bone mass, or have additional risk factors.
== END 2022-06-17 13:37 | disposition home or self-care (01) ==
LOC: HO.MAMMO 13:36
PROVIDERS: PCP Family Medicine; Visit Provider Internal Medicine
DX: Z13.820 Encounter for screening for osteoporosis (principal); M85.80 Other specified disorders of bone density and structure, unspecified site; Z78.0 Asymptomatic menopausal state
CPT/HCPCS: 77080

== ENCOUNTER → 2022-10-22 11:24 | Outpatient (BNVA) | payer MEDICAID, SELFPAY | PROVIDERS: PCP Family Medicine; Visit Provider Surgery | DX: D05.11 Intraductal carcinoma in situ of right breast (principal); Z79.811 Long term (current) use of aromatase inhibitors; Z92.3 Personal history of irradiation | CPT/HCPCS: 99212 ==

== ENCOUNTER 2022-11-27 15:04 | Outpatient (REF) | payer MEDICAID, SELFPAY ==
--- NOTE | ~2022-11-27 | US_ITS ---
EXAMINATION: US VENOUS ULTRASOUND WITH DOPPLER LOWER EXTREMITY, RIGHT CLINICAL INFORMATION: Varicose veins. Pain. COMPARISON: None TECHNIQUE: Ultrasound of the deep veins is performed from the hip to the calf with compression sonography and color and pulse Doppler assessment. Spectral analysis with color-flow imaging is performed. FINDINGS: There is normal venous compression and respiratory variation and augmented flow. The visualized common femoral vein, superficial femoral vein, profunda femoral vein, popliteal vein, and the trifurcation region shows no evidence of deep venous thrombosis. There is no significant popliteal fossa cyst. If the patient's symptoms persist, followup ultrasound in 5 days 7 days might be of value to exclude proximal propagation from a non-visualized calf vein. US/US venous duplex LE RT IMPRESSION: No DVT demonstrated in the right lower extremity.
== END 2022-11-27 15:05 | disposition home or self-care (01) ==
LOC: HO.US 15:04
PROVIDERS: PCP Family Medicine; Visit Provider Internal Medicine
DX: R52 Pain, unspecified (principal)
CPT/HCPCS: 93971

== ENCOUNTER → 2022-12-01 10:32 | Outpatient (BNVA) | payer MEDICAID, SELFPAY | PROVIDERS: PCP Family Medicine; Visit Provider Nurse Practitioner Family | DX: K21.9 Gastro-esophageal reflux disease without esophagitis (principal); K59.01 Slow transit constipation; Z86.010 Personal history of colon polyps; Z79.899 Other long term (current) drug therapy | CPT/HCPCS: 99212 ==

== ENCOUNTER 2022-12-15 13:00 | Outpatient (REF) | payer MEDICAID, SELFPAY ==
--- NOTE | ~2022-12-15 | XR_ITS ---
EXAMINATION: XR LUMBOSACRAL SPINE CLINICAL INFORMATION: Low back pain COMPARISON: Previous x-ray February 2016 TECHNIQUE: Three views of the lumbosacral spine. FINDINGS: Bone alignment is normal. No fracture or dislocation. Normal disc spaces. Degenerative spondylosis of the lower thoracic and upper lumbar spine. Lower lumbar spine facet arthritis. Degenerative changes of the left hip joint. XR/XR lumbar spine 2-3V IMPRESSION: Degenerative changes.
--- NOTE | ~2022-12-15 | XR_ITS ---
EXAMINATION: XR HIP, LEFT CLINICAL INFORMATION: Pain COMPARISON: None TECHNIQUE: Two views of the left hip. FINDINGS: No fracture or dislocation. Mild to moderate arthritis with joint space narrowing and osteophyte formation. Normal soft tissues. XR/XR hip LT min 2V IMPRESSION: Mild to moderate arthritis.
[2022-12-15 14:51] LABS: Vitamin D 25-OH Total 28.6 ng/mL (>30)
== END 2022-12-15 13:01 | disposition home or self-care (01) ==
LOC: HO.XRAY 13:00
PROVIDERS: PCP Family Medicine; Visit Provider Family Medicine
DX: M54.42 Lumbago with sciatica, left side (principal); E66.09 Other obesity due to excess calories; Z68.36 Body mass index [BMI] 36.0-36.9, adult
CPT/HCPCS: 36415; 72100; 73502; 82306

== ENCOUNTER → 2023-01-27 10:25 | Outpatient (BNVA) | payer MEDICAID, SELFPAY | PROVIDERS: PCP Family Medicine; Visit Provider Surgery Vascular Surgery | DX: I83.11 Varicose veins of right lower extremity with inflammation (principal); Z85.3 Personal history of malignant neoplasm of breast; Z80.0 Family history of malignant neoplasm of digestive organs | CPT/HCPCS: 99202 ==

== ENCOUNTER 2023-01-30 08:18 | Outpatient (REF) | payer MEDICAID, SELFPAY ==
--- NOTE | ~2023-01-30 | US_ITS ---
EXAMINATION: US LOWER EXTREMITY VENOUS (REFLUX EXAM), BILATERAL CLINICAL INDICATION: Varicose veins with inflammation COMPARISON: None. TECHNIQUE: Color flow triplex imaging and compression Doppler was performed to evaluate both the deep and the superficial systems bilaterally. To evaluate the superficial system, the examination was performed in the upright position. Color-flow Doppler ultrasound and compression ultrasound were utilized. In addition, maneuvers were utilized to demonstrate reflux. FINDINGS: 1. DEEP VENOUS ULTRASOUND OF THE RIGHT LOWER EXTREMITY: Common Femoral Vein: Compressible, normal respiratory variation and augmented flow. Femoral Vein: Compressible, normal color flow and augmentation. Popliteal Vein: Compressible, normal augmentation. Deep Reflux: Reflux in the popliteal vein 1456 ms There is no evidence of a Oliveira's cyst. 2. SUPERFICIAL ULTRASOUND WITH DOPPLER OF RIGHT LOWER EXTREMITY: GREAT SAPHENOUS VEIN: Saphenofemoral Junction: 0.7 cm; Reflux: 0 ms Proximal Thigh: 0.3 cm; Reflux: 0 ms Mid Thigh: 0.2 cm; Reflux: 0 ms Above Knee: 0.1 cm; Reflux: 0 ms At Knee: 0.2 cm; Reflux: 0 ms Below Knee: 0.2 cm; Reflux: 2748 ms Mid Calf: 0.1 cm; Reflux: 1328 ms Ankle: 0.2 cm; Reflux: 0 ms DUPLICATED MEDIAL GREAT SAPHENOUS VEIN: Diameter: None Imaged Reflux: NA DUPLICATED LATERAL GREAT SAPHENOUS VEIN: Diameter: 0.4cm Reflux: NA SMALL SAPHENOUS VEIN: Proximal: 0.7 cm; Reflux: 2420 ms Distal: 0.3 cm; Reflux: 2288 ms VEIN OF GIACOMINI: None Imaged. PERFORATORS: Location: Mid thigh Size: 0.1cm Reflux: NA VARICOSITIES: Location: SSV mid Size: 0.3cm Reflux: 2420ms Location: SSV Size: 0.4cm Reflux: 2464 3. DEEP VENOUS ULTRASOUND OF THE LEFT LOWER EXTREMITY: Common Femoral Vein: Compressible, normal respiratory variation and augmented flow. Femoral Vein: Compressible, normal color flow and augmentation. Popliteal Vein: Compressible, normal augmentation. Deep Reflux: There is no evidence of reflux in the deep system in either the common femoral vein or the popliteal vein. There is no evidence of a Oliveira's cyst. 4. SUPERFICIAL ULTRASOUND WITH DOPPLER OF LEFT LOWER EXTREMITY: GREAT SAPHENOUS VEIN: Saphenofemoral Junction: 1.0 cm; Reflux: 0 ms Proximal Thigh: 0.2 cm; Reflux: 0 ms Mid Thigh: 0.2 cm; Reflux: 0 ms Above Knee: 0.2 cm; Reflux: 0 ms At Knee: 0.2 cm; Reflux: 1984 ms Below Knee: 0.2 cm; Reflux: 2284 ms Mid Calf: 0.2 cm; Reflux: 2604 ms Ankle: 0.1 cm; Reflux: 2448 ms DUPLICATED MEDIAL GREAT SAPHENOUS VEIN: Diameter: None Imaged Reflux: NA DUPLICATED LATERAL GREAT SAPHENOUS VEIN: Diameter: 0.3cm Reflux: NA SMALL SAPHENOUS VEIN: Proximal: 0.3 cm; Reflux: 0 ms Distal: 0.2 cm; Reflux: 0 ms VEIN OF GIACOMINI: None Imaged. PERFORATORS: Location: Mid calf Size: 0.2 Reflux: NA Location: Mid calf Size: NA Reflux: 2452ms VARICOSITIES: Location: ASV Size: 0.3cm Reflux: 752ms US/US venous duplex LE BI IMPRESSION: 1. Right small saphenous venous insufficiency. 2. Left great saphenous venous insufficiency below the knee. 3. Bilateral small saphenous venous insufficiency. 4. Bilateral refluxing varicosities. 5. No evidence of DVT.
== END 2023-01-30 08:19 | disposition home or self-care (01) ==
LOC: HO.US 08:18
PROVIDERS: PCP Family Medicine; Visit Provider Surgery Vascular Surgery
DX: I83.893 Varicose veins of bilateral lower extremities with other complications (principal)
CPT/HCPCS: 93970

== ENCOUNTER → 2023-02-19 10:30 | Outpatient (BNVA) | payer MEDICAID, SELFPAY | PROVIDERS: PCP Family Medicine; Visit Provider Surgery Vascular Surgery | DX: I83.11 Varicose veins of right lower extremity with inflammation (principal) | CPT/HCPCS: 99212 ==

== ENCOUNTER 2023-03-04 10:12 | Outpatient (REF) | payer MEDICAID, SELFPAY ==
--- NOTE | ~2023-03-04 | MM_ITS ---
EXAMINATION: MM DIAGNOSTIC DIGITAL BREAST TOMOSYNTHESIS, BILATERAL CLINICAL INFORMATION: Right DCIS status post ultrasound-guided needle localization and excision 01/21/2022. Radiation concluded in 2021. Due for yearly. COMPARISON: Mammography: 03/03/2022, 01/21/2022, 01/08/2022, 01/06/2022, 07/09/2021, 01/01/2021, 06/13/2020. TECHNIQUE: Digital breast tomosynthesis is performed in both the craniocaudal and mediolateral oblique views along with computer-aided detection (CAD). Synthesized 2D images are generated from the tomosynthesis. Additional magnification right CC and magnification right LM views are obtained. FINDINGS: There are scattered areas of fibroglandular density (ACR BI-RADS breast composition Category b). There are post therapy changes on the right with reduced breast size and scarring posterior medial right breast. The postoperative seroma/hematoma is substantially decreased from prior imaging 03/03/2022. The left breast shows no significant changes from prior studies. There is no significant mass or developing density or architectural abnormality. No abnormal calcifications. The axilla are unremarkable. Results are provided to the patient at time of visit by the technologist. Recommend short interval six-month follow-up right mammography to follow the postsurgical changes. MM/MM tomosynthesis diagnostic BI IMPRESSION: -No mammographic evidence of malignancy. -Post therapy changes right breast, decreased. ASSESSMENT: BI-RADS 3: Probably Benign RECOMMENDATION: Diagnostic right mammography in 6 months. This patient's information was entered into a reminder system with a target due date for their next mammogram.
== END 2023-03-04 10:13 | disposition home or self-care (01) ==
LOC: HO.MAMMO 10:12
PROVIDERS: PCP Family Medicine; Visit Provider Nurse Practitioner Family
DX: Z12.31 Encounter for screening mammogram for malignant neoplasm of breast (principal)
CPT/HCPCS: 77062; 77066

== ENCOUNTER → 2023-04-08 08:06 | Day surgery (SDC) | payer MEDICAID, SELFPAY ==
[2023-04-06 15:11] VITALS: BMI 37.8
--- NOTE | 2023-04-07 12:08 | P.CONAN_ITS ---
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) Family history of ovarian cancer (Acute) Breast nodule (Acute) Past Medical History Medical History Allergic rhinitis Arthritis Breast nodule Depression Ductal carcinoma in situ (DCIS) of breast Family history of ovarian cancer GERD (gastroesophageal reflux disease) History of ductal carcinoma in situ (DCIS) of breast Obesity Family History Family History Sister Ovarian cancer HTN (hypertension) Hyperlipidemia Family history of problems with anesthesia: No Surgical History Surgical History History of lumpectomy of right breast Hx of cholecystectomy Hx of colonoscopy Hx of tubal ligation History of Problems with Anesthesia: No Social History Social History Household Members: Spouse and Children [facility] Are you a primary child care lead teacher to a significant other at home: No Do you presently have visiting nurse or other home services: No Alcohol intake: current Alcohol intake frequency: does not drink Patient Tobacco Use Status: Former Tobacco user Quit Date: 30 yrs ago Tobacco use type: Cigarette Years Smoked: 5 Second Hand Smoke Exposure: No Use of substances other than those prescribed or required for medical reasons: No Are you DNR?: No Advance Directives: No Advance Directives Information Provided: Yes Advance Directives on File: No service: No Current occupational status: disabled Meds Allergies Allergy/AdvReac Type Severity Reaction Status Date / Time No Known Allergies Allergy Verified 02/24/23 13:25 [No Known Allergies*] Home Medications Medication Instructions Recorded Confirmed Last Taken Type bupropion HCl 100 mg tablet,12 hr 100 mg PO BEDTIME 10/28/21 02/24/23 Unknown History sustained-release (Wellbutrin SR) clonazepam 1 mg tablet 1 mg PO BEDTIME 10/28/21 02/24/23 Unknown History duloxetine 60 mg capsule,delayed 60 mg PO DAILY 10/28/21 02/24/23 Unknown History release (Cymbalta) loratadine 10 mg tablet (Claritin) 10 mg PO DAILY 10/28/21 02/24/23 Unknown History nabumetone 500 mg tablet 500 mg PO BID 10/28/21 02/24/23 Unknown History simethicone 125 mg chewable tablet 125 mg PO TID PRN Constipation 10/28/21 02/24/23 Unknown History (Gas Relief (simethicone)) gabapentin 400 mg capsule 400 mg PO TID 01/08/22 02/24/23 Unknown History bupropion HCl 150 mg 24 hr tablet, 150 mg PO QAM 02/19/23 02/24/23 Unknown History extended release cholecalciferol (vitamin D3) 50 50 mcg PO QAM 02/19/23 02/24/23 Unknown History mcg (2,000 unit) capsule cyclobenzaprine 5 mg tablet 5 mg PO BEDTIME 02/19/23 02/24/23 Unknown History Exam Exam Date and Time: April 07, 2023 1208 Height,Weight and Vital Signs: Height 5 ft 4 in Weight 99.79 kg Pertinent Lab Results Pertinent Lab Results: Laboratory Tests 02/24/23 02/24/23 13:40 13:40 WBC 5.5 Hgb 9.6 L Hct 31.3 L Plt Count 261 Sodium 143 Potassium 4.3 Chloride 109 H Carbon Dioxide 27 BUN 11 Creatinine 0.85 Assessment and Plan Assessment Anesthesia Assessment: Chart Reviewed Final Anesthetic Review Family History of Problems with Anesthesia: No History of Problems with Anesthesia: No Documented by User: Karol Mayer MD 04/08/23 08:55 [facility] Past Medical History Medical History Allergic rhinitis Arthritis Breast nodule Depression Ductal carcinoma in situ (DCIS) of breast Family history of ovarian cancer GERD (gastroesophageal reflux disease) History of ductal carcinoma in situ (DCIS) of breast Obesity Family History Family History Sister Ovarian cancer HTN (hypertension) Hyperlipidemia Surgical History Surgical History History of lumpectomy of right breast Hx of cholecystectomy Hx of colonoscopy Hx of tubal ligation Social History Social History Household Members: Spouse and Children [facility] Are you a primary child care lead teacher to a significant other at home: No Do you presently have visiting nurse or other home services: No Alcohol intake: current Alcohol intake frequency: does not drink Patient Tobacco Use Status: Former Tobacco user Quit Date: 30 yrs ago Tobacco use type: Cigarette Years Smoked: 5 Second Hand Smoke Exposure: No Use of substances other than those prescribed or required for medical reasons: No Are you DNR?: No Advance Directives: No Advance Directives Information Provided: Yes Advance Directives on File: No service: No Current occupational status: disabled Meds Allergies Allergy/AdvReac Type Severity Reaction Status Date / Time No Known Allergies Allergy Verified 02/24/23 13:25 [No Known Allergies*] Home Medications Medication Instructions Recorded Confirmed Last Taken Type bupropion HCl 100 mg tablet,12 hr 100 mg PO BEDTIME 10/28/21 02/24/23 Unknown History sustained-release (Wellbutrin SR) clonazepam 1 mg tablet 1 mg PO BEDTIME 10/28/21 02/24/23 Unknown History duloxetine 60 mg capsule,delayed 60 mg PO DAILY 10/28/21 02/24/23 Unknown History release (Cymbalta) loratadine 10 mg tablet (Claritin) 10 mg PO DAILY 10/28/21 02/24/23 Unknown History nabumetone 500 mg tablet 500 mg PO BID 10/28/21 02/24/23 Unknown History simethicone 125 mg chewable tablet 125 mg PO TID PRN Constipation 10/28/21 02/24/23 Unknown History (Gas Relief (simethicone)) gabapentin 400 mg capsule 400 mg PO TID 01/08/22 02/24/23 Unknown History bupropion HCl 150 mg 24 hr tablet, 150 mg PO QAM 02/19/23 02/24/23 Unknown History extended release cholecalciferol (vitamin D3) 50 50 mcg PO QAM 02/19/23 02/24/23 Unknown History mcg (2,000 unit) capsule cyclobenzaprine 5 mg tablet 5 mg PO BEDTIME 02/19/23 02/24/23 Unknown History Exam Airway Mallampati Class: II Partial: Upper (left at home) Heart: rrr Lungs: cta Assessment and Plan Assessment Anesthesia Assessment: Anesthesia Plan Discussed and Chart Reviewed Final Anesthetic Review NPO: Yes ASA Class: II and III Final Preanesthetic Review: No Changes in Pt Med Stat, Meds/Allgs Chart Reviewed and Consent Obtained/Reviewed Patient Risk: Intermediate Procedure Risk: Intermediate Anesthetic Plan Anesthetic Plan: MAC: Disposition: Standard PACU
[2023-04-08 08:51] VITALS: BP 134/71; PULSE 73; RESP 16; TEMP 36.6; O2SAT 100
[2023-04-08] MEDS: Lactated Ringers 1,000 ML 100 ML IVCONT (08:59)
--- NOTE | 2023-04-08 09:04 | MHC.SHP ---
Pre-Procedural Eval Section A Date of Service: 04/08/23 Section B Chief Complaint: Encounter for screening for malignant neoplasm Relevant Family History (Specify if Yes): No Relevant Social History: None Present Medications: see Short Stay Collaborative assessment Medical History: Significant History (Allergic rhinitis Arthritis Breast nodule Depression Ductal carcinoma in situ (DCIS) of breast Family history of ovarian cancer GERD (gastroesophageal reflux disease) History of ductal carcinoma in situ (DCIS) of breast Obesity) History of Previous Operations: Relevant previous surgery/procedure and date(s) (History of lumpectomy of right breast Hx of cholecystectomy Hx of colonoscopy Hx of tubal ligation) Allergies: Allergies Allergy/AdvReac Type Severity Reaction Status Date / Time No Known Allergies Allergy Verified 02/24/23 13:25 [No Known Allergies*] Review of Systems Sugical H&P ROS: Negative: Constitution, Cardiovascular, Respiratory, Neurological, Psychiatric, Hem-Onc, Allergic/Immunologic, Gastrointestinal, Genitourinary, Musculoskeletal, Integumentary, Endocrine and Eyes/Ears/Nose/Throat Exam Surgical H&P Exam: Normal: HEENT, Normal: Heart, Normal: Lungs, Normal: Extremities, Normal: Abdomen, Normal: Skin and Normal: Neurological Plan Diagnosis/Plan: Unchanged I have reviewed the history and physical and performed a pertinent physical examination on my patient. No changes have occurred unless specified. Time Spent With Patient Time: Total time managing care of this patient today ____ minutes.
--- NOTE | 2023-04-08 09:48 | W.PM.OPN ---
Operative Note Operative Note Date of Service: 04/08/23 Narrative: Operative Information Procedure Description: Colonoscopy Indication: screening Anesthesia: MAC COLONOSCOPY Instrument: Olympus variable stiffness pediatric scope 190L Colonoscopy Monitoring: Vital signs and clinical assessment, continuous EKG monitoring, Pulse oximetry, Carbon Dioxide monitoring and blood pressure monitoring were done throughout the procedure. Colon withdrawal time was 9 minutes. Procedure: The patient was placed in the left lateral decubitis position and pre-procedure medications were administered. After a digital rectal examination of the ano-rectum, the video colonoscope was inserted into the rectum and advanced through the colon to the cecum/TI. The colonoscope was slowly withdrawn in a retrograde panoramic fashion and the colon mucosa was carefully examined including a retroflexed view of the rectum. Findings and interventions are described below. Procedure Difficulty: easy Findings: Terminal Ileum-normal Cecum:normal Ascending Colon: few diverticula seen Transverse Colon -normal Descending Colon:normal Sigmoid Colon: 7-8 mm sessile polyp removed with cold snare Rectum: Retroflexion with small internal hemorrhoids, grade I Anorectum - normal Colon preparation: [place] Bowel Preparation Scale Right colon; 2 Transverse colon: 2 Left colon; 2 (0 = Unprepared colon segment with mucosa not seen due to solid stool that cannot be cleared. 1 = Portion of mucosa of the colon segment seen, but other areas of the colon segment not well seen due to staining, residual stool and/or opaque liquid. 2 = Minor amount of residual staining, small fragments of stool and/or opaque liquid, but mucosa of colon segment seen well. 3 = Entire mucosa of colon segment seen well with no residual staining, small fragments of stool or opaque liquid) Impression and Post Procedure Diagnosis: polyps internal hemorrhoids diverticular disease Plan: High fiber diet leaflet Avoid straining at stool, epsom salts and sitz bath, anusol supps or cream Repeat Colonoscopy in 5-6 years or earlier if clinically indicated Above findings were reviewed with the patient and relevant handouts were provided if indicated.
[2023-04-08 10:18] VITALS: BP 124/61; PULSE 65; RESP 16; TEMP 36.1; O2SAT 99
[2023-04-08 10:33] VITALS: BP 131/69; PULSE 64; RESP 14; O2SAT 99
[2023-04-08 10:43] VITALS: BP 132/72; PULSE 65; RESP 12; TEMP 36.6; O2SAT 99
== END | disposition home or self-care (01) ==
PROVIDERS: PCP Family Medicine; Visit Provider Internal Medicine Gastroenterology
PROC: 0DJD8ZZ Inspection of Lower Intestinal Tract, Via Natural or Artificial Opening Endoscopic (ICD-10-PCS; CPT 45378; principal; 2023-04-08 10:10)
DX: Z12.11 Encounter for screening for malignant neoplasm of colon (principal); Z86.010 Personal history of colon polyps; D12.5 Benign neoplasm of sigmoid colon; K57.30 Diverticulosis of large intestine without perforation or abscess without bleeding; K64.0 First degree hemorrhoids; K59.01 Slow transit constipation; K21.9 Gastro-esophageal reflux disease without esophagitis; D05.11 Intraductal carcinoma in situ of right breast; Z79.811 Long term (current) use of aromatase inhibitors; Z80.41 Family history of malignant neoplasm of ovary; J30.9 Allergic rhinitis, unspecified; E66.9 Obesity, unspecified; Z68.37 Body mass index [BMI] 37.0-37.9, adult; Z79.899 Other long term (current) drug therapy; Z90.49 Acquired absence of other specified parts of digestive tract; Z98.51 Tubal ligation status; Z87.891 Personal history of nicotine dependence
CPT/HCPCS: 45385; 88305

== ENCOUNTER → 2023-04-20 10:00 | Outpatient (BNVA) | payer MEDICAID, SELFPAY | PROVIDERS: PCP Family Medicine; Visit Provider Surgery | DX: Z86.000 Personal history of in-situ neoplasm of breast (principal) | CPT/HCPCS: 99212 ==

== ENCOUNTER 2023-04-28 14:01 | Outpatient (AMB) | payer MEDICAID, SELFPAY ==
--- NOTE | 2023-04-28 14:13 | MHC.OFFVIS ---
Intake Vital Signs 04/28/23 14:15 Height 5 ft 4 in Weight 220 lb BMI 37.8 BP 134/74 Blood Pressure Location Lt brachial Position Sitting Pulse 69 Intake Visit Reasons: S/p colo-Lau Intake Note: Sari galvan in office as a est.patient for a post-op f/u for colonoscopy pt got colo done 6.05.24 PT CC: Patient denies having any GI issues or concerns today. Appraisal Analyst Required: Yes Appraisal Analyst Name: Hallie [id number] Allergies No Known Allergies [No Known Allergies*] Allergy (Verified 04/28/23 14:17) HPI S/p colo-Lau HPI Details LAST VISIT Screen for colon cancer History of tubular adenoma in November of 2017. Patient is due for colorectal screening. Discussed with patient the importance of good bowel prep and what to expect before during and after the procedure. Prep sent to pharmacy. Patient denies any melena, hematochezia, unintentional weight loss or ribbon like stools. Discussed with patient clear liquid diet day before the procedure. GERD (gastroesophageal reflux disease) Continue avoiding dietary triggers in late night snacking. Staying upright for minimum 3 hours after meals discussed with patient. Patient reports that her symptoms are only occasional depending on what she eats. Constipation Continue docusate sodium. Patient will increase Senokot 2 tablets every evening. Patient is aware that she needs to move her bowels better especially that she will be going for colonoscopy. I will see her after the procedure. Patient was instructed to call us sooner if she will have any GI concerning symptoms. Patient is agreeable to this plan and verbalizes understanding of instructions. She was given the opportunity to ask questions all questions answered. ? Thank you for allowing me to participate in her care Plan Medications New bisacodyl (Dulcolax (bisacodyl)) take 2 tabs at noon the day before your colonoscopy 10 mg (2 x 5 mg) PO ONCE 1 day 2 tabs 0RF Z12.11 polyethylene glycol 3350 (Miralax) As directed by gastroenterology department at [facility] 238 grams PO ONCE 238 grams 0RF Z12.11 Changed From sennosides (Natural Senna Laxative) 8.6 mg PO BEDTIME 90 tabs 3RF constipation K59.00 To sennosides (Natural Senna Laxative) 17.2 mg (2 x 8.6 mg) PO BEDTIME 180 tabs 3RF constipation K59.00 COLONOSCOPY Findings: Terminal Ileum-normal Cecum:normal Ascending Colon: few diverticula seen Transverse Colon -normal Descending Colon:normal Sigmoid Colon:? 7-8 mm sessile polyp removed with cold snare Rectum: Retroflexion with small internal hemorrhoids, grade I Anorectum - normal Colon preparation: [place] Bowel Preparation Scale Right colon; 2 Transverse colon: 2 Left colon; 2 (0 = Unprepared colon segment with mucosa not seen due to solid stool that cannot be cleared. 1 = Portion of mucosa of the colon segment seen, but other areas of the colon segment not well seen due to staining, residual stool and/or opaque liquid. 2 = Minor amount of residual staining, small fragments of stool and/or opaque liquid, but mucosa of colon segment seen well. 3 = Entire mucosa of colon segment seen well with no residual staining, small fragments of stool or opaque liquid) Impression and Post Procedure Diagnosis: polyps internal hemorrhoids diverticular disease Plan: High fiber diet leaflet Avoid straining at stool, epsom salts and sitz bath, anusol supps or cream Repeat Colonoscopy in 5-6 years or earlier if clinically indicated PATHOLOGY RESULTS Diagnosis Colon, sigmoid, polyp:? Tubular adenoma; negative for high-grade dysplasia and carcinoma. TODAY'S VISIT: Patient is here today for follow-up and to discuss colonoscopy results. Patient denies any ill effects from the prep, anesthesia or procedure itself. Patient reports to be feeling well. Denies any melena, hematochezia, unintentional weight loss or ribbon like stools. Colonoscopy results discussed with patient. Patient reports that she moves her bowels, however she feels like she is constipated. Does not feel like she empties her bowels completely. Patient denies any dyspepsia, dysphagia or odynophagia. [facility] Medical History (Updated 05/01/23 @ 15:45 by Thania Cazares MD) Allergic rhinitis Arthritis Breast nodule Depression Ductal carcinoma in situ (DCIS) of breast Family history of ovarian cancer GERD (gastroesophageal reflux disease) History of ductal carcinoma in situ (DCIS) of breast Obesity Tubular adenoma Surgical History History of lumpectomy of right breast Hx of cholecystectomy Hx of colonoscopy Hx of tubal ligation Family History Sister Ovarian cancer HTN (hypertension) Hyperlipidemia Social History Household Members: Spouse and Children Housing: Condominium Are you a primary acute care nursing assistant to a significant other at home: No Do you presently have visiting nurse or other home services: No Alcohol intake: current Alcohol intake frequency: does not drink Patient Tobacco Use Status: Former Tobacco user Quit Date: 30 yrs ago Tobacco use type: Cigarette Years Smoked: 5 Second Hand Smoke Exposure: No Use of substances other than those prescribed or required for medical reasons: No Have you been hit, kicked, punched, or otherwise hurt by someone within the past year? If so, by whom?: No Do you feel safe in your current relationship?: Yes Do you have thoughts of harming others: None Do you have a plan to hurt others: No Plan Do you have the means to hurt others: No Recently lost weight without trying: No service: No Current occupational status: disabled Female Reproductive History Menstrual Age of Menarche: 12 Review of Systems Const Denies weight gain and Denies weight loss ENT Reports no additional complaints, Denies dysphagia and Denies odynophagia Card Reports no additional complaints Resp Reports no additional complaints GI Denies abdominal pain, Denies belching, Denies melena, Denies bloating, Denies change in bowel habits, Denies dysphagia, Denies excessive flatus, Denies dyspepsia, Denies heartburn, Denies diarrhea, Denies loose stools, Denies nausea, Denies odynophagia and Denies vomiting Reports no additional complaints Musc Reports no additional complaints Neuro Reports no additional complaints Psych Reports no additional complaints Endo Reports no additional complaints Physical Exam Vital Signs: Last Vital Signs Pulse 69 04/28/23 14:15 BP 134/74 04/28/23 14:15 BMI result Body Mass Index 37.8 Const General: healthy appearing, no acute distress and well developed Nutritional Appearance: obese Orientation/consciousness: patient oriented x3 HEENT Head: Yes normal to inspection, Yes normocephalic and Yes atraumatic Face and sinus: Yes normal facial exam Mouth: Normal oral and palatal mucosa present Throat: Yes posterior oropharynx normal, Yes tonsils normal and Yes uvula midline Eyes General: appearance normal, both eyes and all related structures Neck Neck: Yes normal visual inspection, Yes full ROM and Yes trachea midline Thyroid: Thyroid normal Resp Effort & Inspection: normal respiratory effort, able to speak in complete sentences, no tracheal deviation and symmetric chest movement Auscultation: clear to auscultation bilaterally Cardio Rate: regular rate Heart sounds: S1 normal heart sound present and S2 normal heart sound present GI Inspection: Yes normal to inspection, No distended and Yes obesity Palpation (GI): Soft to palpation, not firm, nontender and No hepatosplenomegaly present Auscultation: normal bowel sounds General: Yes no CVA tenderness Back/Spine/Pelvis Back: no CVA tenderness Skin General skin exam: elasticity normal, turgor normal and dry skin Neuro General: patient oriented x3 Psych Appearance: grossly normal Mental Status: mental status grossly normal Speech and movement: Normal speech and movement present Affect: normal affect Assessment & Plan Assessment & Plan (1) Tubular adenoma: Code(s): D36.9 - Benign neoplasm, unspecified site Plan: One tubular adenoma without high-grade dysplasia or carcinoma found in sigmoid colon. Patient will repeat colonoscopy in 5 years, sooner if clinically necessary. (2) GERD (gastroesophageal reflux disease): Code(s): K21.9 - Gastro-esophageal reflux disease without esophagitis Qualifiers: Esophagitis presence: esophagitis presence not specified Qualified Code(s): K21.9 - Gastro-esophageal reflux disease without esophagitis Plan: Continue avoiding dietary triggers in late night snacking. Staying upright for minimal 3 hours after meals discussed with patient (3) Constipation: Code(s): K59.00 - Constipation, unspecified Qualifiers: Constipation type: slow transit constipation Qualified Code(s): K59.01 - Slow transit constipation Plan: Occasional symptoms of constipation. Patient can take senna on as needed basis if no BM in 1-2 days. Patient was also encouraged to increase fluid intake and activity to promote better bowel motility. (4) Status post colonoscopy: Code(s): Z98.890 - Other specified postprocedural states Plan: Patient denies any ill effects from the prep, anesthesia or procedure itself. Reports to be feeling fairly well. One tubular adenoma found and colorectal screening was recommended in 5 years. I will see patient in 1 year, sooner on on as needed basis. Patient is agreeable to this plan and verbalizes understanding of instructions. She was given the opportunity to ask questions and all questions answered. Thank you for allowing me to participate in her care Medications: Refilled sennosides (Natural Senna Laxative) 17.2 mg (2 x 8.6 mg) PO BEDTIME 180 tabs 4RF constipation K59.00 - Constipation, unspecified Coding Level of Care Code Est Pt Level 3 (84606) Diagnoses Tubular adenoma D36.9 GERD (gastroesophageal reflux disease) K21.9 Esophagitis presence: esophagitis presence not specified Constipation K59.01 Constipation type: slow transit constipation Status post colonoscopy Z98.890 Time Spent (min) 30 Comment 20 minutes spent with patient and additional 10 minutes spent reviewing her records
[2023-04-28 14:15] VITALS: BP 134/74; PULSE 69; BMI 37.8
== END 2023-04-28 15:13 | disposition home or self-care (01) ==
PROVIDERS: PCP Family Medicine; Visit Provider Nurse Practitioner Family
DX: D36.9 Benign neoplasm, unspecified site (principal); K21.9 Gastro-esophageal reflux disease without esophagitis; K59.01 Slow transit constipation; Z98.890 Other specified postprocedural states
CPT/HCPCS: 99213

== ENCOUNTER → 2023-04-28 14:01 | Outpatient (BNVA) | payer MEDICAID, SELFPAY | PROVIDERS: PCP Family Medicine; Visit Provider Nurse Practitioner Family | DX: K21.9 Gastro-esophageal reflux disease without esophagitis (principal); K59.01 Slow transit constipation; D36.9 Benign neoplasm, unspecified site; Z98.890 Other specified postprocedural states | CPT/HCPCS: 99213 ==

== ENCOUNTER 2023-07-29 | Outpatient (REF) | payer MEDICAID, SELFPAY ==
[2023-07-29 14:48] LABS: MANUAL DIFF FLAG NO
[2023-07-29 15:06] LABS: Basophils Percent Auto 0.8 % (0-2); Eosinophils Absolute Auto 0.3 X10*3/uL (0.0-0.4); Eosinophils Percent Auto 5.2 % (0-4); Hemoglobin 12.4 g/dl (12.0-16.0); Imm Gran Abs Auto 0.01 X10*3/uL (0.00-0.03); Imm Gran Pct Auto 0.2 % (0.0-0.4); Lymphocytes Absolute Auto 1.6 X10*3/uL (1.2-4.9); Lymphocytes Percent Auto 31.1 % (20-40); Mean Corpuscular HGB Conc 31.8 g/dl (31.0-35.0); Mean Corpuscular Hemoglobin 30.8 pg (27.0-33.0); Mean Corpuscular Volume 96.8 fL (80.0-98.0); Mean Platelet Volume 10.9 fL (9.4-12.3); Monocytes Absolute Auto 0.5 X10*3/uL (0.1-1.2); Monocytes Percent Auto 9.3 % (2-11); Neutrophils Absolute Auto 2.8 x10*3/uL (2.0-8.3); Neutrophils Percent Auto 53.4 % (45-73); Platelet Count 212 X10*3/uL (160-400); Red Blood Count 4.03 X10*6/uL (4.20-5.50); Red Cell Distribution Width 14.4 % (11.0-16.0); White Blood Count 5.2 X10*3/uL (4.8-10.8)
[2023-07-29 15:31] LABS: Alanine Aminotransferase 12 U/L (0-31); Albumin Level 3.9 g/dL (3.5-5.0); Alkaline Phosphatase 68 U/L (39-117); Anion Gap 12 (12-20); Aspartate Amino Transferase 21 U/L (5-31); Bilirubin Total 0.5 mg/dL (0.0-1.0); Blood Urea Nitrogen 12 mg/dL (9-16); Calcium 9.6 mg/dL (8.4-10.2); Carbon Dioxide 28 mmol/L (22-29); Chloride 107 mmol/L (96-108); Estimated Glomerular Filt Rate > 60; Glucose Random 95 mg/dL (60-115); Iron 75 mcg/dL (30-160); Percent Iron Saturation 27 % (15-50); Potassium 4.2 mmol/L (3.3-5.1); Sodium 143 mmol/L (135-145); Total Iron Binding Capacity 277 mcg/dL (228-428); Total Protein 7.9 g/dL (6.5-8.0); Unsaturated Iron Binding 202 ug/dL
[2023-07-29 15:36] LABS: Ferritin 58 ng/mL (10-250)
[2023-07-30 04:27] LABS: HIV AB/AG Nonreactive (Nonreactive); HIV Num 1 0.05 S/CO (0.00-0.99); ~HepC Num1 0.12 S/CO (0.00-0.79); ~Hepatitis C Antibody Nonreactive (Nonreactive)
[2023-07-31 11:33] LABS: TS Negative Control Passed; TS Panel A 0; TS Panel B 0; TS Positive Control Passed; TSpotTB Negative (Negative)
[2023-08-03 00:39] LABS: VITAMIN D (1,25 OH) D3 26 pg/mL; Vit D (1,25-Dihydroxy) Total 34 pg/mL (18-72); Vitamin D (1,25 OH) D2 8 pg/mL
== END 2023-07-29 00:01 ==
LOC: HO.CHCLDS
PROVIDERS: Visit Provider Family Medicine
DX: D64.9 Anemia, unspecified (principal); E66.09 Other obesity due to excess calories; Z11.1 Encounter for screening for respiratory tuberculosis; Z68.36 Body mass index [BMI] 36.0-36.9, adult
CPT/HCPCS: 36415; 80053; 82652; 82728; 83540; 85025; 86481; 86803; 87389

== ENCOUNTER 2023-09-11 10:55 | Outpatient (REF) | payer MEDICAID, SELFPAY ==
--- NOTE | ~2023-09-11 | MM_ITS ---
EXAMINATION: MM DIAGNOSTIC DIGITAL BREAST TOMOSYNTHESIS, RIGHT CLINICAL INFORMATION: Right DCIS status post ultrasound-guided needle localization and excision 01/21/2022. Radiation concluded in 2021. Due for yearly protocol. COMPARISON: Mammography: 03/04/2023, 03/03/2022, 01/21/2022, 01/08/2022, 01/06/2022, 07/09/2021, 01/01/2021, 06/13/2020. TECHNIQUE: Digital breast tomosynthesis is performed in both the craniocaudal and mediolateral oblique views along with computer-aided detection (CAD). Synthesized 2D images are generated from the tomosynthesis. In addition, 2-D spot magnification views of the excisional site were obtained in the CC and ML projection. FINDINGS: There are scattered areas of fibroglandular density (ACR BI-RADS breast composition Category b). There is similar post therapy changes on the right with reduced breast size, and scarring posterior medial right breast. The postoperative seroma/hematoma is continued to decrease in size from prior imaging but does still persists to a mild degree. The post therapy changes are similar with minimal trabecular thickening and distortion in the scarring region. There are no suspicious findings in the right breast. There are no masses or developing regions of distortion. No suspicious calcifications. MM/MM tomosynthesis diagnostic RT IMPRESSION: No mammographic evidence of malignancy. Stable post therapy changes right breast, continuing to improve. Recommend continued surveillance in 6 months when the patient is due for bilateral screening. ASSESSMENT: BI-RADS BI-RADS 3 - Probably benign finding(s) - 6 month follow-up suggested RECOMMENDATION: 6 Month F/U Results were provided to the patient at time of visit by the technologist. This patient's information was entered into a reminder system with a target due date for their next mammogram.
== END 2023-09-11 10:56 | disposition home or self-care (01) ==
LOC: HO.MAMMO 10:55
PROVIDERS: PCP Family Medicine; Visit Provider Family Medicine
DX: Z85.3 Personal history of malignant neoplasm of breast (principal); Z98.890 Other specified postprocedural states
CPT/HCPCS: 77061; 77065

== ENCOUNTER → 2023-09-11 11:00 | Outpatient (BNV) | payer MEDICAID, SELFPAY | PROVIDERS: PCP Family Medicine; Visit Provider Radiology Diagnostic Radiology | DX: R92.321 Mammographic fibroglandular density, right breast (principal) | CPT/HCPCS: 77061; 77065 ==

== ENCOUNTER 2023-09-28 10:00 | Outpatient (AMB) | payer MEDICAID, SELFPAY ==
--- NOTE | 2023-09-28 10:02 | A.OFFVIS_ITS ---
Intake Vital Signs 09/28/23 10:10 Height 5 ft 4 in Weight 221 lb BMI 37.9 BP 131/76 Blood Pressure Location Lt brachial Position Sitting Pulse 73 Intake Visit Reasons: 6 month breast exam Intake Note: Patient is seen in office for 6 month follow up visit, breast exam. Patient c/o: denies any concerns regarding the breast Lifestyle Consultant Required: Yes Lifestyle Consultant Language: Broadloom Weaver Name: Marcie WANG Information Interpreted: non-clinical & clinical Survey Research Professor: Survey Research Professor Present Accompanied by: Family/Other Allergies No Known Allergies [No Known Allergies*] Allergy (Verified 09/28/23 10:13) Medication List - Last Reconciled 09/28/23 by Ivan Valdes MD anastrozole (Arimidex) 1 mg PO DAILY bupropion HCl (Wellbutrin SR) 100 mg PO BEDTIME bupropion HCl 150 mg PO QAM cholecalciferol (vitamin D3) 50 mcg PO QAM clonazepam 1 mg PO BEDTIME cyclobenzaprine 5 mg PO BEDTIME docusate sodium 100 mg PO BEDTIME duloxetine (Cymbalta) 60 mg PO DAILY ferrous sulfate (iron) 325 mg PO BID gabapentin 400 mg PO TID loratadine (Claritin) 10 mg PO DAILY nabumetone 500 mg PO BID sennosides (Natural Senna Laxative) 17.2 mg (2 x 8.6 mg) PO BEDTIME simethicone (Gas Relief (simethicone)) 125 mg PO TID PRN HPI 6 month breast exam HPI Details She is here for follow-up for history of DCIS of the right breast. She had undergone lumpectomy last April, and has completed radiation. She is currently on Arimidex. She denies any significant complaints. I have reviewed her follow-up mammogram last September 11, 2023. This shows stable postop changes. A repeat mammogram had been recommended in 6 months. She denies any palpable breast masses. 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 Family history of ovarian cancer Breast nodule GERD (gastroesophageal reflux disease) Allergic rhinitis Obesity Depression Arthritis Surgical History History of lumpectomy of right breast Hx of colonoscopy Hx of tubal ligation Hx of cholecystectomy Family History Sister Ovarian cancer HTN (hypertension) Hyperlipidemia Household Members: Spouse and Children [facility] Are you a primary intensive care unit registered nurse to a significant other at home: No Do you presently have visiting nurse or other home services: No Alcohol intake: current Alcohol intake frequency: does not drink Patient Tobacco Use Status: Former Tobacco user Quit Date: 30 yrs ago Tobacco use type: Cigarette Years Smoked: 5 Second Hand Smoke Exposure: No service: No Current occupational status: disabled Female Reproductive History Menstrual Age of Menarche: 12 Date of Mammogram: 09/11/23 Review of Systems Const Denies chills and Denies fever(s) Card Denies chest pain, Denies dyspnea and Denies dyspnea on exertion Resp Denies cough, Denies dyspnea and Denies dyspnea on exertion GI Denies hematochezia and Denies change in bowel habits Denies hematuria Musc Denies back pain and Denies limited range of motion Neuro Denies focal weakness and Denies convulsions Psych Denies depression and Denies mood swings Physical Exam Vital Signs: Last Vital Signs Pulse 73 09/28/23 10:10 BP 131/76 09/28/23 10:10 BMI result Body Mass Index 37.9 Const Other: Morbidly obese General: comfortable and no acute distress Orientation/consciousness: patient oriented x3 Neck Neck: Yes no lymphadenopathy Chest Other: Lumpectomy scar on the left breast medially, no palpable breast masses, no axillary lymphadenopathy Resp Auscultation: clear to auscultation bilaterally Cardio Rhythm: regular rhythm GI Palpation (GI): Soft to palpation, nontender and no guarding Neuro General: patient oriented x3 Assessment & Plan Assessment & Plan (1) History of ductal carcinoma in situ (DCIS) of breast: Code(s): Z86.000 - Personal history of in-situ neoplasm of breast Plan: Status post lumpectomy last year. Her follow-up mammogram 2 weeks ago showed stable postop changes on the lumpectomy site on the right breast A repeat mammogram had been recommended in 6 months. I reminded her with regards to this Her current exam does not reveal any palpable masses. She continues to be on Arimidex. I also reminded her to continue to follow-up with her oncologist. Coding Level of Care Code Est Pt Level 3 (41066) Diagnoses History of ductal carcinoma in situ (DCIS) of breast Z86.000
[2023-09-28 10:10] VITALS: BP 131/76; PULSE 73; BMI 37.9
== END 2023-09-28 10:24 | disposition home or self-care (01) ==
PROVIDERS: PCP Family Medicine; Visit Provider Surgery
DX: Z86.000 Personal history of in-situ neoplasm of breast (principal)
CPT/HCPCS: 99213

== ENCOUNTER → 2023-09-28 10:00 | Outpatient (BNVA) | payer MEDICAID, SELFPAY | PROVIDERS: PCP Family Medicine; Visit Provider Surgery | DX: D05.11 Intraductal carcinoma in situ of right breast (principal); Z92.3 Personal history of irradiation; Z80.41 Family history of malignant neoplasm of ovary; Z79.811 Long term (current) use of aromatase inhibitors | CPT/HCPCS: 99212 ==

== ENCOUNTER 2024-03-14 12:59 | Outpatient (REF) | payer OTHER, SELFPAY ==
--- NOTE | ~2024-03-14 | MM_ITS ---
EXAMINATION: MM SCREENING DIGITAL BREAST TOMOSYNTHESIS, BILATERAL CLINICAL INFORMATION: Screening. Asymptomatic. The patient is status post right breast surgery for DCIS in 2021. COMPARISON: Mammography: This study is compared with prior exams dating back to 2019. TECHNIQUE: Digital breast tomosynthesis is performed in both the craniocaudal and mediolateral oblique views along with computer-aided detection (CAD). Synthesized 2D images are generated from the tomosynthesis. FINDINGS: There are scattered areas of fibroglandular density (ACR BI-RADS breast composition Category b). There are no significant masses, abnormal calcifications, or other abnormalities. There are postsurgical changes in the medial aspect of the right breast. MM/MM tomosynthesis screening BI IMPRESSION: No mammographic evidence of malignancy. ASSESSMENT: BI-RADS BI-RADS 2 - Benign Findings RECOMMENDATION: Routine annual mammography screening. 1 year F/U This examination should not preclude the clinical evaluation of a suspicious palpable abnormality. This patient's information was entered into a reminder system with a target due date for their next mammogram.
== END 2024-03-14 13:00 | disposition home or self-care (01) ==
LOC: HO.MAMMO 12:59
PROVIDERS: PCP Family Medicine; Visit Provider Family Medicine
DX: Z12.31 Encounter for screening mammogram for malignant neoplasm of breast (principal)
CPT/HCPCS: 77063; 77067

== ENCOUNTER → 2024-03-14 13:00 | Outpatient (BNV) | payer OTHER, SELFPAY | PROVIDERS: PCP Family Medicine; Visit Provider Radiology Diagnostic Radiology | DX: Z12.31 Encounter for screening mammogram for malignant neoplasm of breast (principal) | CPT/HCPCS: 77063; 77067 ==

== ENCOUNTER 2024-03-24 10:22 | Outpatient (AMB) | payer OTHER, SELFPAY ==
--- NOTE | 2024-03-24 10:24 | MHC.OFFVIS ---
Vital Signs 03/24/24 10:26 Height 5 ft 4 in Weight 217 lb BMI 37.2 BP 122/71 Blood Pressure Location Rt brachial Position Sitting Pulse 77 Intake Visit Reasons: 6 month breast exam Intake Note: This patient presents for a six month follow-up breast examination assessment. Patient c/o; reports no breast complaints. 03/14/2024: MM Screening Portable Canteen Operator Required: Yes Portable Canteen Operator Language: Wire Bender Name: Vamsi Information Interpreted: non-clinical & clinical Accompanied by: Spouse Allergies No Known Allergies [No Known Allergies*] Allergy (Verified 03/24/24 10:32) Medication List - Last Reconciled 03/24/24 by Ivan Valdes MD anastrozole (Arimidex) 1 mg PO DAILY bupropion HCl SR (Wellbutrin SR) 100 mg PO BEDTIME bupropion HCl XL 150 mg PO QAM cholecalciferol (vitamin D3) 50 mcg PO QAM clonazepam 1 mg PO BEDTIME cyclobenzaprine 5 mg PO BEDTIME docusate sodium 100 mg PO BEDTIME duloxetine (Cymbalta) 60 mg PO DAILY ferrous sulfate (iron) 325 mg PO BID gabapentin 400 mg PO TID loratadine (Claritin) 10 mg PO DAILY nabumetone 500 mg PO BID sennosides (Natural Senna Laxative) 17.2 mg (2 x 8.6 mg) PO BEDTIME simethicone (Gas Relief (simethicone)) 125 mg PO TID PRN HPI HPI 6 month breast exam: Details: She is here for follow-up for history of DCIS of the right breast. She had undergone lumpectomy last April, and has completed radiation. She is currently on Arimidex. She denies any significant complaints. She had a follow-up mammogram done last week. There is no official report yet but she says she was told that this was unremarkable. She was told that her next mammogram will be after 1 year. 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 Family history of ovarian cancer Breast nodule GERD (gastroesophageal reflux disease) Allergic rhinitis Obesity Depression Arthritis Surgical History History of lumpectomy of right breast Hx of colonoscopy Hx of tubal ligation Hx of cholecystectomy Family History Sister Ovarian cancer HTN (hypertension) Hyperlipidemia Social History Household Members: Spouse and Children [facility] Are you a primary healthcare interpreter to a significant other at home: No Do you presently have visiting nurse or other home services: No Alcohol intake: current Alcohol intake frequency: does not drink Patient Tobacco Use Status: Former Tobacco user Quit Date: 30 yrs ago Tobacco use type: Cigarette Years Smoked: 5 Second Hand Smoke Exposure: No service: No Current occupational status: disabled Female Reproductive History Menstrual Age of Menarche: 12 Review of Systems Const Denies chills and Denies fever(s) Card Denies chest pain, Denies dyspnea and Denies dyspnea on exertion Resp Denies cough, Denies dyspnea and Denies dyspnea on exertion GI Denies hematochezia and Denies change in bowel habits Denies hematuria Musc Denies back pain and Denies limited range of motion Neuro Denies focal weakness and Denies convulsions Psych Denies depression and Denies mood swings Physical Exam Vital Signs: Last Vital Signs Pulse 77 03/24/24 10:26 BP 122/71 03/24/24 10:26 BMI result Body Mass Index 37.2 Const General: comfortable and no acute distress Orientation/consciousness: patient oriented x3 Neck Neck: Yes no lymphadenopathy Chest Other: No palpable breast masses, no nipple or skin changes, no axillary lymphadenopathy, surgical scar on the right breast Resp Auscultation: clear to auscultation bilaterally Cardio Rhythm: regular rhythm GI Palpation (GI): Soft to palpation, nontender and no guarding Neuro General: patient oriented x3 Assessment & Plan Assessment & Plan (1) History of ductal carcinoma in situ (DCIS) of breast: Code(s): Z86.000 - Personal history of in-situ neoplasm of breast Category: Medical Plan: She had DCIS in 2021 and has completed treatment with lumpectomy and radiation. She is currently on Arimidex Current exam does not suggest any palpable mass in the breasts. She had a mammogram which she says was unremarkable. I will follow up on the official report and if this shows benign findings, I will see her again next year after her next mammogram. She understands the plan and is comfortable with this. I also instructed her to make sure she continues to follow up with Dr. Cazares of Oncology. Coding Level of Care Code Est Pt Level 3 (35426) Diagnoses History of ductal carcinoma in situ (DCIS) of breast Z86.000
[2024-03-24 10:26] VITALS: BP 122/71; PULSE 77; BMI 37.2
== END 2024-03-24 10:45 | disposition home or self-care (01) ==
PROVIDERS: PCP Family Medicine; Visit Provider Surgery
DX: Z86.000 Personal history of in-situ neoplasm of breast (principal)
CPT/HCPCS: 99213

== ENCOUNTER → 2024-03-24 10:22 | Outpatient (BNVA) | payer OTHER, SELFPAY | PROVIDERS: PCP Family Medicine; Visit Provider Surgery | DX: Z86.000 Personal history of in-situ neoplasm of breast (principal); Z80.41 Family history of malignant neoplasm of ovary; Z79.811 Long term (current) use of aromatase inhibitors; Z92.3 Personal history of irradiation | CPT/HCPCS: 99212 ==

== ENCOUNTER 2024-11-07 10:13 | Outpatient (AMB) | payer OTHER, SELFPAY ==
[2024-11-07 10:15] VITALS: BP 138/74; PULSE 74; O2SAT 100; BMI 37.5
--- NOTE | 2024-11-07 10:15 | A.OFFVIS_ITS ---
Vital Signs 11/07/24 10:15 Height 5 ft 4 in Weight 218 lb 4.122 oz BMI 37.5 BP 138/74 Blood Pressure Location Rt brachial Position Sitting Pulse 74 Pulse Source Pulse Oximeter Pulse Oximetry (%) 100 Oxygen Delivery Method Room Air Intake Visit Reasons: FUV, r/s from 04/26/2024 Intake Note: ESTABLISHED PATIENT Reason; in office FUV to re-est care. Last seen 2022. Changes/concerns? No significant concerns per pt. Rn Sexual Assault Required: Yes Rn Sexual Assault Services: Rn Sexual Assault Present Rn Sexual Assault Name: Emmanuelle [id number] Information Interpreted: non-clinical & clinical Accompanied by: Spouse Allergies No Known Allergies [No Known Allergies*] Allergy (Verified 11/07/24 10:15) HPI HPI FUV, r/s from 04/26/2024: Details: LAST VISIT:04/28/2023 Tubular adenoma One tubular adenoma without high-grade dysplasia or carcinoma found in sigmoid colon. Patient will repeat colonoscopy in 5 years, sooner if clinically necessary. GERD (gastroesophageal reflux disease) Continue avoiding dietary triggers in late night snacking. Staying upright for minimal 3 hours after meals discussed with patient Constipation Occasional symptoms of constipation. Patient can take senna on as needed basis if no BM in 1-2 days. Patient was also encouraged to increase fluid intake and activity to promote better bowel motility. Status post colonoscopy Patient denies any ill effects from the prep, anesthesia or procedure itself. Reports to be feeling fairly well. One tubular adenoma found and colorectal screening was recommended in 5 years. I will see patient in 1 year, sooner on on as needed basis. Patient is agreeable to this plan and verbalizes understanding of instructions. She was given the opportunity to ask questions and all questions answered. ? Thank you for allowing me to participate in her care Plan Medications Refilled sennosides (Natural Senna Laxative) 17.2 mg (2 x 8.6 mg) PO BEDTIME 180 tabs 4RF constipation K59.00 - Constipation, unspecified TODAY'S VISIT: Patient is here today for follow-up. She continues to have abdominal bloating and lots of gas. This does not happen every day maybe 2 to 3 times a week. Patient has no reflux. Denies dyspepsia, dysphagia or odynophagia. Patient denies melena, hematochezia, unintentional weight loss or ribbon like stools. Patient reports that she is moving her bowels better now that she is taking senna. Patient 2 senna us every evening. Patient denies any other GI concerning symptoms. Denies abdominal pain or cramping. 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 Family history of ovarian cancer Breast nodule GERD (gastroesophageal reflux disease) Allergic rhinitis Obesity Depression Arthritis Surgical History History of lumpectomy of right breast Hx of colonoscopy Hx of tubal ligation Hx of cholecystectomy Family History Sister Ovarian cancer HTN (hypertension) Hyperlipidemia Social History Household Members: Spouse and Children [facility] Are you a primary child care center assistant director to a significant other at home: No Do you presently have visiting nurse or other home services: No Alcohol intake: current Alcohol intake frequency: does not drink Patient Tobacco Use Status: Former Tobacco user Tobacco use type: Cigarette Years Smoked: 5 Second Hand Smoke Exposure: No service: No Current occupational status: disabled Female Reproductive History Menstrual Age of Menarche: 12 Review of Systems Const Denies weight gain and Denies weight loss ENT Reports no additional complaints, Denies dysphagia and Denies odynophagia Card Reports no additional complaints Resp Reports no additional complaints GI Denies abdominal pain, Denies belching, Denies melena, Denies bloating, Denies change in bowel habits, Denies dysphagia, Denies excessive flatus, Denies dyspepsia, Denies heartburn, Denies diarrhea, Denies loose stools, Denies nausea, Denies odynophagia and Denies vomiting Musc Reports no additional complaints Neuro Reports no additional complaints Psych Reports no additional complaints Endo Reports no additional complaints Physical Exam Vital Signs: Last Vital Signs Pulse 74 11/07/24 10:15 BP 138/74 11/07/24 10:15 Pulse Ox 100 11/07/24 10:15 Oxygen Delivery Method Room Air 11/07/24 10:15 BMI result Body Mass Index 37.5 Const General: healthy appearing, no acute distress and well developed Nutritional Appearance: obese Orientation/consciousness: patient oriented x3 Resp Effort & Inspection: normal respiratory effort, able to speak in complete sentences, no tracheal deviation and symmetric chest movement Auscultation: clear to auscultation bilaterally Cardio Rate: regular rate Heart sounds: S1 normal heart sound present and S2 normal heart sound present GI Inspection: Yes normal to inspection, No distended and Yes obesity Palpation (GI): Soft to palpation, not firm, nontender and No hepatosplenomegaly present Auscultation: normal bowel sounds General: Yes no CVA tenderness Back/Spine/Pelvis Back: no CVA tenderness Skin General skin exam: elasticity normal, turgor normal and dry skin Neuro General: patient oriented x3 Psych Appearance: grossly normal Mental Status: mental status grossly normal Assessment & Plan Assessment & Plan (1) GERD (gastroesophageal reflux disease): Code(s): K21.9 - Gastro-esophageal reflux disease without esophagitis Qualifiers: Esophagitis presence: esophagitis presence not specified Qualified Co de(s): K21.9 - Gastro-esophageal reflux disease without esophagitis (2) Constipation: Code(s): K59.00 - Constipation, unspecified Qualifiers: Constipation type: slow transit constipation Qualified Code(s): K59.01 - Slow transit constipation Plan Continue avoiding dietary triggers and late night. Staying upright for minimum 3 hours after meals discussed with patient. Continue taking it daily. Increase fluid intake and activity to promote better bowel motility. Follow-up in 6 months, sooner on as needed basis. She is agreeable to this plan and verbalizes understanding of instructions. She was given the opportunity to ask questions and all questions answered. Thank you for allowing me to participate in her care Medications: New simethicone (Gas Relief (simethicone)) 125 mg PO TID PRN 90 tabs 3RF abdominal distention Refilled sennosides (Natural Senna Laxative) 17.2 mg (2 x 8.6 mg) PO BEDTIME 180 tabs 4RF constipation K59.00 - Constipation, unspecified Coding Level of Care Code Est Pt Level 3 (52157) Diagnoses Gastroesophageal reflux disease, unspecified whether esophagitis present K21.9 Esophagitis presence: esophagitis presence not specified Slow transit constipation K59.01 Constipation type: slow transit constipation Time Spent (min) 25 Comment 15 minutes spent with patient and additional 10 minutes spent reviewing her records will
== END 2024-11-07 10:48 | disposition home or self-care (01) ==
PROVIDERS: PCP Family Medicine; Visit Provider Nurse Practitioner Family
DX: K21.9 Gastro-esophageal reflux disease without esophagitis (principal); K59.01 Slow transit constipation
CPT/HCPCS: 99213

== ENCOUNTER 2024-11-28 14:38 | Outpatient (REF) | payer OTHER, SELFPAY ==
[2024-11-28 17:48] LABS: MANUAL DIFF FLAG NO
[2024-11-28 18:00] LABS: Basophils Percent Auto 0.7 % (0-2); Eosinophils Absolute Auto 0.2 X10*3/uL (0.0-0.4); Eosinophils Percent Auto 3.5 % (0-4); Hematocrit 36.4 % (37.0-47.0); Hemoglobin 11.5 g/dl (12.0-16.0); Imm Gran Abs Auto 0.01 X10*3/uL (0.00-0.03); Imm Gran Pct Auto 0.2 % (0.0-0.4); Lymphocytes Absolute Auto 2.1 X10*3/uL (1.2-4.9); Lymphocytes Percent Auto 34.5 % (20-40); Mean Corpuscular HGB Conc 31.6 g/dl (31.0-35.0); Mean Corpuscular Hemoglobin 29.6 pg (27.0-33.0); Mean Corpuscular Volume 93.8 fL (80.0-98.0); Mean Platelet Volume 11.3 fL (9.4-12.3); Monocytes Absolute Auto 0.6 X10*3/uL (0.1-1.2); Neutrophils Absolute Auto 3.1 x10*3/uL (2.0-8.3); Neutrophils Percent Auto 51.1 % (45-73); Platelet Count 242 X10*3/uL (160-400); Red Blood Count 3.88 X10*6/uL (4.20-5.50); Red Cell Distribution Width 14.7 % (11.0-16.0); White Blood Count 6.1 X10*3/uL (4.8-10.8)
[2024-11-28 18:15] LABS: Alanine Aminotransferase 11 U/L (0-31); Alkaline Phosphatase 78 U/L (39-117); Anion Gap 9 (12-20); Aspartate Amino Transferase 27 U/L (5-31); Bilirubin Total 0.3 mg/dL (0.0-1.0); Blood Urea Nitrogen 11 mg/dL (9-16); Calcium 9.2 mg/dL (8.4-10.2); Carbon Dioxide 26 mmol/L (22-29); Chloride 110 mmol/L (96-108); Cholesterol 158 mg/dL (<200); Estimated Glomerular Filt Rate > 60; Glucose Random 87 mg/dL (60-115); HDL Cholesterol 60 mg/dL (>40); LDL Cholesterol Calculated 86 mg/dL (<100); Sodium 141 mmol/L (135-145); Total Protein 8.5 g/dL (6.5-8.0); Triglycerides 62 mg/dL (<150)
[2024-11-28 18:32] LABS: TSH reflex Free T4 1.02 uIU/mL (0.32-4.0)
--- OUTSIDE RECORDS SUMMARY | 2024-11-28 19:04 | XMS_ITS | Encounter Summary ---
Author Organization [employer] Address [address] [place] [address] Care Team Providers Care Maintenance Mgr Name Role Phone Caryn Edmond MD Primary Care Provider Encounter Details Date Type Department Care Team (Late st Contact Info) Description 02/29/2024 Orders Only [facility] [address] [place] [address] ProviderSteve MD Social History Tobacco Use Types Packs/Day Years Used Date Smoking Tobacco: Never Passive Smoke Exposure: Never Smokeless Tobacco: Never Alcohol Use Standard Drinks/Week Comments Never 0 (1 standard drink = 0.6 oz pur e alcohol) Depression Answer Date Recorded Patient Health Questionnaire-9 Score 5 08/17/2023 Patient Health Questionnaire-9 Score 5 08/17/2023 Last PHQ-9: Questionnaire Data Not on file 1 Housing Stability Answer Date Recorded What is your housing situation today? I have taniyasilvia oliveira 08/17/[address] you li ve. Do you have problems with any of the following? None of the above 08/17/2023 Food Insecurity Answer Date Recorded Within the past 12 months, y ou worried that your food would run out before you got money to buy more: Never True 08/17/2023 Within the past 12 months,th e food you bought just didn't last and you didn't have enough money to get more: Never True Transportation Answer Date Recorded In the past 12 months, has l ack of transportation kept you from medical appts, meetings, work or from getting things needed for daily living? No 08/17/2023 Utilities Answer Date Recorded In the past 12 months, has t he electric, gas, oil or water company threatened to shut off services in your home? No 08/17/2023 Depression Answer Date Recorded Patient Health Questionnaire-2 Score 1 08/17/2023 Comments Unknown Sex and Gender Information Value Date Recorded Sex Assigned at Female 09/01/2022 10:14 AM EDT Legal Sex Female 10:14 AM EDT Gender Identity Female 09/01/2022 10:14 AM EDT Sexual Orientation Choose not to disclose 2021 10:14 AM EDT documented as of this encounter Plan of Treatment Not on file documented as of this encounter Procedures Procedure Name Priority Date/Time Associated Diagnosis Comments BI MAMMOGRAM SCREENING TOMOSYNTHESIS BILATERAL Routine 03/14/2024 1:30 PM EDT HM COLONOSCOPY Routine 11/05/2017 8:25 AM EST documented in this encounter Results * BI Mammogram Screening Tomosynthesis Bilateral (03/14/2024 1:30 PM EDT) Anatomical Region Laterality Modality Breast Bilateral Mammography 03/14/2024 1:30 PM EDT Narrative 04/14/2024 3:21 PM EDT ? [facility] ? [address] ?[place] [address] ? Mammography Report ? Signed ? Patient: Sun,Sari ?MR#: [id number] ?? [id number] ? : 1960 ?Acct:[id number] ? Age/Sex: 63 / F ?ADM Date: 05/13/24 ? Loc: HO.MAMMO ? Attending Dr: Caryn Edmond MD ? Ordering Physician: Caryn Edmond MD ?Results: 2Beni ?? gn Findings ? Date of Service: 03/14/24 ?Follow Up: 1 Year From Orig ?? inal Mammogram ? Procedure(s): MM tomosynthesis screening BI ?? Accession Number(s): [id number] ? cc: Caryn Edmond MD ? EXAMINATION: ?? MM SCREENING DIGITAL BREAST TOMOSYNTHESIS, BILATERAL ? CLINICAL INFORMATION: ? Screening. Asymptomatic. ? The patient is status post right breast surgery for DCIS in 2021. ?? COMPARISON: ?? Mammography: This study is compared with prior exams dating back to ?? 2019. ? TECHNIQUE: ? Digital breast tomosynthesis is performed in both the craniocaudal and ?? mediolateral oblique views along with computer-aided detection (CAD). ?? Synthesized 2D images are generated from the tomosynthesis. ? FINDINGS: ?? There are scattered areas of fibroglandular density (ACR BI-RADS breast ?? composition Category b). ? There are no significant masses, abnormal calcifications, or other ?? abnormalities. ?? There are postsurgical changes in the medial aspect of the right ?? breast. ? MM/MM tomosynthesis screening BI ?? IMPRESSION: ?? No mammographic evidence of malignancy. ? ASSESSMENT: ? BI-RADS BI-RADS 2 - Benign Findings ? RECOMMENDATION: ?? Routine annual mammography screening. ? 1 year F/U ? This examination should not preclude the clinical evaluation of a ?? suspicious palpable abnormality. ? This patient's information was entered into a reminder system with a ?? target due date for their next mammogram. ? Dictated By: ?Veronica Martinez MD ? Signed By: ?<Electronically signed by Veronica Martinez MD in OV> ? 04/14/241516 ? DD/ 29 ? TD/TT: ? Sports Editor: ? Procedure Note Stephanie, Image - 04/14/2024 [facility] [address] [place], [place] [address] Mammography Report Signed Patient: Sari SunMR#: [id number] : 9Acct:[id number] Age/Sex: 63 / FADM Date: 03/14/24 Loc: HO.MAMMO Attending Dr: Caryn Edmond MD Ordering Physician: Caryn Edmond MDResults: 2Beni gn Findings Date of Service: 03/14/24Follow Up: 1 Year From Orig inal Mammogram Procedure(s): MM tomosynthesis screening BI Accession Number(s): [id number] cc: Caryn Edmond MD EXAMINATION: MM SCREENING DIGITAL BREAST TOMOSYNTHESIS, BILATERAL CLINICAL INFORMATION: Screening. Asymptomatic. The patient is status post right breast surgery for DCIS in 2021. COMPARISON: Mammography: This study is compared with prior exams dating back to 2019. TECHNIQUE: Digital breast tomosynthesis is performed in both the craniocaudal and mediolateral oblique views along with computer-aided detection (CAD). Synthesized 2D images are generated from the tomosynthesis. FINDINGS: There are scattered areas of fibroglandular density (ACR BI-RADS breast composition Category b). There are no significant masses, abnormal calcifications, or other abnormalities. There are postsurgical changes in the medial aspect of the right breast. MM/MM tomosynthesis screening BI IMPRESSION: No mammographic evidence of malignancy. ASSESSMENT: BI-RADS BI-RADS 2 - Benign Findings RECOMMENDATION: Routine annual mammography screening. 1 year F/U This examination should not preclude the clinical evaluation of a suspicious palpable abnormality. This patient's information was entered into a reminder system with a target due date for their next mammogram. Dictated By: Veronica Martinez MD Signed By: <Electronically signed by Veronica Martinez MD in OV> 04/14/24 1517 DD/ 1330 TD/TT: Sports Editor: us Caryn Edmond MD IMG BI PROCEDURES Final Resul t * Hm Colonoscopy (11/05/2017 8:25 AM EST) us Historical Provider HEALTH MAINTENANCE Final Result documented in this encounter Visit Diagnoses Not on filedocumented in this encounter Additional Health Concerns Assessment Noted Time PHQ-9 Depression Total Score: 5 08/17/20 23 10:41 AM EDT documented as of this encounter Care Teams Maintenance Mgr Relationship Specialty Start Date End Date Caryn Edmond MD [address] [place] [address] PCP - General Family Medicine 08/13/21 documented as of this encounter
--- OUTSIDE RECORDS SUMMARY | 2024-11-28 19:04 | XMS_ITS | Encounter Summary ---
Author Organization [employer] Address [address] [facility] 7[address] [place] [address] Care Team Providers Care Supervisor Acoustical Tile Carpenters Name Role Phone Caryn Edmond MD Primary Care Provider [phone] Encounter Details Date Type Department Care Team (Latest Contact Info) Description 11/28/2024 Travel Social History Tobacco Use Types Packs/Day Years Used Date Smoking Tobacco: Never Passive Smoke Exposure: Never Smokeless Tobacco: Never Alcohol Use Standard Drinks/Week Comments Never 0 (1 standard drink = 0.6 oz pur e alcohol) Depression Answer Date Recorded Patient Health Questionnaire-9 Score 9 11/28/2024 Patient Health Questionnaire-9 Score 9 11/28/2024 Last PHQ-9: Questionnaire Data Not on file 0 11/28/2024 Housing Stability Answer Date Recorded What is your housing situation today? I have taniya oliveira 10/20/[address] you li ve. Do you have problems with any of the following? None of the above 10/20/2024 Food Insecurity Answer Date Recorded Within the past 12 months, y ou worried that your food would run out before you got money to buy more: Never True 10/20/2024 Within the past 12 months,th e food you bought just didn't last and you didn't have enough money to get more: Never True Transportation Answer Date Recorded In the past 12 months, has l ack of transportation kept you from medical appts, meetings, work or from getting things needed for daily living? No 10/20/2024 Utilities Answer Date Recorded In the past 12 months, has t he electric, gas, oil or water company threatened to shut off services in your home? No 10/20/2024 Depression Answer Date Recorded Patient Health Questionnaire-2 Score 4 11/28/2024 Internet Access Answer Date Recorded Internet Access Q1 Yes 10/20/2024 Internet Access Q2 Not on file 10/20/2024 Comments No Sex and Gender Information Value Date Recorded Sex Assigned at Female 09/01/2022 10:14 AM EDT Legal Sex Female 10:14 AM EDT Gender Identity Female 09/01/2022 10:14 AM EDT Sexual Orientation Choose not to disclose 2021 10:14 AM EDT documented as of this encounter Plan of Treatment Not on file documented as of this encounter Visit Diagnoses Not on filedocumented in this encounter Additional Health Concerns Assessment Noted Time PHQ-9 Depression Total Score: 9 11/28/19 25 1:57 PM EST documented as of this encounter Care Teams Supervisor Acoustical Tile Carpenters Relationship Specialty Start Date End Date Caryn Edmond MD [address] [place] [address] PCP - General Family Medicine 08/13/21 documented as of this encounter
--- OUTSIDE RECORDS SUMMARY | 2024-11-28 19:04 | XMS_ITS | Encounter Summary ---
Author Organization [employer] Address [address] [facility] [address] 7[address] [place] [address] Care Team Providers Care Director Of Rehabilitative Services Name Role Phone Caryn Edmond MD Primary Care Provider [phone] Encounter Details Date Type Department Care Team (Late st Contact Info) Description 09/17/2023 Abstract [facility] [address] [place] [address] Misty Pereira Social History Tobacco Use Types Packs/Day Years [...] housing situation today? I have taniya oliveira 08/17/[address] you [...] documented as of this encounter Care Teams Director Of Rehabilitative Services Relationship Specialty Start Date End Date Caryn Edmond MD [address] [place] [address] PCP - General Family Medicine 08/13/21 documented as of this encounter
--- OUTSIDE RECORDS SUMMARY | 2024-11-28 19:04 | XMS_ITS | Encounter Summary ---
Author Organization [employer] Address [address] [place] [address] Care Team Providers Care Wire Twisting Machine Operator Name Role Phone Caryn Edmond MD Primary Care Provider [phone] Reason for Referral * Imaging (Routine) - Pending Review Specialty Diagnoses / Procedures Referred By Nancy miller Referred To Contact Cardiology Diagnoses Aortic ejection murmur Procedures Transthoracic Echo (TTE) Complete Arlene Torres MD [address] [place] [phone] Phone: tel: fax: Referral ID Status Reason Start Date Expiration Date Visits Requested Visits Authorized [id number] Pending Review Perform Procedure 11/28/2024 11/28/2025 1 1 Reason for Visit * Reason Comments Adult care Encounter Details Date Type Department Care Team (Late st Contact Info) Description 11/28/2024 2:00 PM EST Office Visit [facility] [address] [place] [address] Arlene Torres MD [address] [place] [phone] Anemia, unspecified type (Primary Dx); Low back pain at multiple sites; Depressive disorder; Gastroesophageal reflux disease without esophagitis; Aortic ejection murmur; Chronic left shoulder pain; Allergic reaction, initial encounter; Dietary counseling; Exercise counseling; Class 2 severe obesity due to excess calories with serious comorbidity and body mass index (BMI) of 36.0 to 36.9 in adult (CMS/[facility]ER[facility]); Encounter for immunization Social History Tobacco Use Types Packs/Day Years Used Date Smoking Tobacco: Never Passive Smoke Exposure: Never Smokeless Tobacco: Never Tobacco Cessation:Counseling Given: Not Answered Alcohol Use Standard Drinks/Week Comments Never 0 (1 standard drink = 0.6 oz pur e alcohol) Depression Answer Date Recorded Patient Health Questionnaire-9 Score 9 11/28/2024 Patient Health Questionnaire-9 Score 9 11/28/2024 Last PHQ-9: Questionnaire Data Not on file 0 11/28/2024 Housing Stability Answer Date Recorded What is your housing situation today? I have taniyasilvia oliveira 10/20/[address] you [...] AM EDT documented as of this encounter Last Filed Vital Signs Vital Sign Reading Time Taken Comments Blood Pressure 128/76 11/28/2024 1:55 PM EST Pulse 75 11/28/2024 1:55 PM EST Temperature 36.7 ??C (98 ??F) 11/28/2024 1:55 PM EST Respiratory Rate 18 11/28/2024 1:55 PM EST Oxygen Saturation 97% 11/28/2024 1:55 PM EST Inhaled Oxygen Concentration - - Weight 96.6 kg (213 lb) 11/28/2024 1:55 PM EST Height 163.8 cm (5' 4.5 ) 11/28/2024 1:55 PM EST Body Mass Index 36 11/28/2024 1:55 PM EST documented in this encounter Progress Notes * Arlene Torres MD - 11/28/2024 2:00 PM EST Subjective Patient ID: Sari Sun is a 63 y.o. female who presents for Adult care. HPI Here for her extended office visit. Patient has no particular complaint except for her left posterior shoulder pain that started about 3 months ago. Denies any fall or any lifting or acute event thatwould explain the septum. Otherwise has history of osteoarthritis. Patient needs a refill on her Claritin. Patient Active Problem List Diagnosis Allergic rhinitis Arthritis Depressive disorder Gastroesophageal reflux disease History of cholecystectomy Obesity Intraductal carcinoma in situ of breast Low back pain at multiple sites Anemia Physical exam Need for RSV vaccination Current Outpatient Medications on File Prior to Visit Medication Sig Dispense Refill anastrozole (Arimidex) 1 MG chemo tablet Take 1 mg by mouth in the morning. Ascorbic Acid (Vitamin C) 500 MG capsule Take 1 tablet by mouth in the morning. 120 capsule 3 ascorbid acid ER (Vitamin C) 500 MG ER capsule TAKE 1 CAPSULE BY MOUTH EVERY DAY IN THE MORNING buPROPion XL (Wellbutrin XL) 150 MG 24 hr tablet take 1 tablet by oral route every day calcium 500 MG tablet Take 1 tablet (500 mg) by mouth with breakfast and with evening meal. 180 tablet 1 cholecalciferol VITAMIN D (Vitamin D-3) 50 MCG (2000 UT) capsule TAKE 1 CAPSULE (50 MCG) BY MOUTH IN THE MORNING. 90 capsule 3 clonazePAM (KlonoPIN) 1 MG tablet take 1 tablet PO TID prn docusate sodium (Colace) 100 MG capsule Take 100 mg by mouth at bedtime. DULoxetine (Cymbalta) [address] capsule take 1 capsule by oral route every day ferrous gluconate (Fergon) 324 (38 Fe) MG tablet Take 1 tablet (324 mg) by mouth in the morning. 90tablet 1 gabapentin (Neurontin) 400 MG capsule Take 400 mg by mouth 3 times daily. omeprazole (PriLOSEC) [address] capsule take 1 capsule by oral route every day before a meal for acid reflux Oyster Shell Calcium 500 MG tablet TAKE 1 TABLET (500 MG) BY MOUTH WITH BREAKFAST AND WITH EVENING MEAL 180 tablet 1 Senna-Time 8.6 MG tablet TAKE 2 TABLETS BY MOUTH EVERY DAY AT BEDTIME FOR CONSTIPATION [DISCONTINUED] loratadine (Claritin) 10 MG tablet take 1 Tablet by Oral route every day as needed No current facility-administered medications on file prior to visit. No Known Allergies Review of Systems Constitutional: Negative for activity change, appetite change, chills and diaphoresis. HENT: Negative for dental problem, drooling, ear discharge, ear pain and hearing loss. Eyes: Negative for pain, discharge and itching. Respiratory: Negative for cough, choking and chest tightness. Cardiovascular: Negative for chest pain and leg swelling. Gastrointestinal: Negative for blood in stool and diarrhea. Genitourinary: Negative for difficulty urinating, dyspareunia, dysuria, enuresis, flank pain, frequency and genital sores. Musculoskeletal: Negative for arthralgias, gait problem and joint swelling. Skin: Negative for pallor. Neurological: Negative for dizziness, seizures, speech difficulty, light- headedness and numbness. Psychiatric/Behavioral: Negative for behavioral problems, confusion and decreased concentration. Objective Physical Exam Constitutional: General: She is not in acute distress. Appearance: Normal appearance. She is obese. She is not ill-appearing, toxic- appearing or diaphoretic. Cardiovascular: Rate and Rhythm: Normal rate. Heart sounds: Murmur heard. No gallop. Pulmonary: Effort: No respiratory distress. Breath sounds: No stridor. No wheezing or rhonchi. Neurological: General: No focal deficit present. Mental Status: She is alert. Psychiatric: Mood and Affect: Mood normal. Assessment/Plan Diagnoses and all orders for this visit: Anemia, unspecified type Comments: Repeat CBC. Patient will be contacted with result for further management Orders: - CBC auto differential; Future - Comprehensive Metabolic Panel; Future - Lipid Panel, Standard; Future - TSH W/Reflex to FT4; Future Low back pain at multiple sites Comments: Denies back pain during the evaluation today No acute intervention today Stretching exercises and weight loss recommended Depressive disorder Comments: Denies depression today Continue with the same management Gastroesophageal reflux disease without esophagitis Comments: No reported epigastric pain Patient is feeling well Aortic ejection murmur Comments: Echocardiogram ordered We will consider a referral to cardiology after Orders: - Transthoracic Echo (TTE) Complete; Future Chronic left shoulder pain Comments: Gentle range of motion recommended Diclofenac gel 4 times a day for now Call the office if no improvement in 4 to 6 weeks Orders: - Diclofenac Sodium 1 % gel; To apply to the affected area 3 times a day Allergic reaction, initial encounter - loratadine (Claritin) 10 MG tablet; Take 1 tablet (10 mg) by mouth Once per day. Dietary counseling Exercise counseling Class 2 severe obesity due to excess calories with serious comorbidity and body mass index (BMI) of36.0 to 36.9 in adult (CMS/[facility]) Discussed calorie deficit, recommended reduction of 20-30% of maintenance calories; road roller engineer referral offered. Recommended to decrease soda and sugary beverage consumption. Recommended at least 20 g per meal of protein to assist with satiety. Recommended at least 150 min/week of moderate intensity exercise. documented in this encounter Miscellaneous Notes * Addendum Note - Annamarie Velasquez MA - 11/28/2024 2:00 PM ESTAddended by: ANNAMARIE VELASQUEZ on: 11/28/2024 02:58 PM Modules accepted: Orders documented in this encounter Plan of Treatment Scheduled Orders Name Type Priority Associated Diagnoses Order Schedule Transthoracic Echo (TTE) Complete Echocardiography Routine Aortic ejection murmur Expected: 11/28/2024 (Approximate), Expires: 11/28/2026 documented as of this encounter Procedures Procedure Name Priority Date/Time Associated Diagnosis Comments TSH W/REFLEX TO FT4 Routine 11/28/2024 2 :39 PM EST Anemia, unspecified type CBC WITH AUTO DIFFERENTIAL Routine 11/28/2024 2:39 PM EST Anemia, unspecified type LIPID PANEL, STANDARD Routine 11/28/2024 2:39 PM EST Anemia, unspecified type COMPREHENSIVE METABOLIC PANEL Routine 11/28/2024 2:39 PM EST Anemia, unspecified type documented in this encounter Results * TSH W/Reflex to FT4 (11/28/2024 2:39 PM EST) TSH reflex Free T4 1.02 0.32 - 4.0 uIU/mL [facility] Blood Venous blood specimen / Unknown 11/28/2024 2:39 PM EST 11/28/2024 5:46 PM EST us Arlene Torres MD LAB BLOOD ORDERABLES Final Result [facility] [address] [place] [phone] * Lipid Panel, Standard (11/28/2024 2:39 PM EST) Triglycerides 62 <150 mg/dL [facility] Comment:Desirable Triglyceri de: less than 150 mg/dLBorderline High Triglyceride 150-199 mg/dLHigh Triglyceride: 200-499 mg/dLVery High Triglyceride: greater than or equal to 5OO mg/dL Cholesterol 158 <200 mg/dL [facility] Comment:Desirable Cholestero l: less than 200 mg/dLBorderline High Cholesterol: 200-239 mg/dLHigh Cholesterol: greater than 239 mg/dL LDL Cholesterol Calculated 86 <100 mg/dL [facility] Comment:Desirable LDL: less than 100 mg/dLNear Optimal/Above Optimal LDL: 110- 129 mg/dLBorderline High LDL: 130-159 mg/dLHigh LDL: 160-189 mg/dLVery High LDL: greater than or equal to 190 mg/dL HDL Cholesterol 60 >40 mg/dL [facility] Comment:Desirable HDL: great er than 40 mg/dL Note: This HDL assay may give artificially low results in patients with liver disease. Blood Venous blood specimen / Unknown 11/28/2024 2:39 PM EST 11/28/2024 5:46 PM EST us Arlene Torres MD LAB BLOOD ORDERABLES Final Result [facility] [address] [place] [phone] * (ABNORMAL) Comprehensive Metabolic Panel (11/28/2024 2:39 PM EST) Sodium 141 135 - 145 mmol/L [facility] Potassium 4.0 3.3 - 5.1 mmol/L [facility] Chloride 110(H) 96 - 108 mmol/L [facility] Carbon Dioxide 26 22 - 29 mmol/L [facility] Anion Gap 9(L) 12 - 20 [facility] Urea Nitrogen (BUN) 11 9 - 16 mg/dL [facility] Creatinine, Serum 0.91 0.5 - 1.4 mg/dL [facility] Estimated Glomerular Filt Rate >60 [facility] Comment:Chronic Kidney Disea se: Estimated GFR < 60 mL/min/1.64y3Kobfpy Kidney Disease: Estimated GFR < 15 mL/min/1.73m2 Glucose 87 60 - 115 mg/dL [facility] Calcium 9.2 8.4 - 10.2 mg/dL [facility] Bilirubin, Total 0.3 0.0 - 1.0 mg/dL [facility] Aspartate Amino Transferase 27 5 - 31 U/L [facility] Alanine Aminotransferase 11 0 - 31 U/L [facility] Total Protein 8.5(H) 6.5 - 8.0 g/dL [facility] Albumin Level 4.0 3.5 - 5.0 g/dL [facility] Alkaline Phosphatase 78 39 - 117 U/L [facility] Blood Venous blood specimen / Unknown 11/28/2024 2:39 PM EST 11/28/2024 5:46 PM EST Arlene Torres MD LAB BLOOD ORDERABLES Final Result Performing Organization Address City/[facility]/ZIP Co de Phone Number [facility] [address] [place] [address] [phone] * (ABNORMAL) CBC auto differential (11/28/2024 2:39 PM EST) White Blood Count 6.1 4.8 - 10.8 X10*3/uL [facility] Red Blood Count 3.88(L) 4.20 - 5.50 X10*6/uL [facility] Hemoglobin 11.5(L) 12.0 - 16.0 g/dl [facility] Hematocrit 36.4(L) 37.0 - 47.0 % [facility] Mean Corpuscular Volume 93.8 80.0 - 98.0 fL [facility] Mean Corpuscular Hemoglobin 29.6 27.0 - 33.0 pg [facility] Mean Corpuscular HGB Conc 31.6 31.0 - 35.0 g/dl [facility] Red Cell Distribution Width 14.7 11.0 - 16.0 % [facility] Platelet Count 242 160 - 400 X10*3/uL [facility] Mean Platelet Volume 11.3 9.4 - 12.3 fL [facility] Neutrophils Percent Auto 51.1 45 - 73 % [facility] Imm Gran Pct Auto 0.2 0.0 - 0.4 % [facility] Lymphocytes Percent Auto 34.5 20 - 40 % [facility] Monocytes Percent Auto 10.0 2 - 11 % [facility] Eosinophils Percent Auto 3.5 0 - 4 % [facility] Basophils Percent Auto 0.7 0 - 2 % [facility] NRBC Pct Auto 0.0 0.0 - 0.2 /100WBC [facility] Neutrophils Absolute Auto 3.1 2.0 - 8.3 x10*3/uL [facility] Imm Gran Abs Auto 0.01 0.00 - 0.03 X10*3/uL [facility] Lymphocytes Absolute Auto 2.1 1.2 - 4.9 X10*3/uL [facility] Monocytes Absolute Auto 0.6 0.1 - 1.2 X10*3/uL [facility] Eosinophils Absolute Auto 0.2 0.0 - 0.4 X10*3/uL [facility] Basophils Absolute Auto 0.0 0.0 - 0.2 X10*3/uL [facility] NRBC Abs Auto 0.000 0.0 - 0.012 X10*3/uL [facility] Blood Venous blood specimen / Unknown 11/28/2024 2:39 PM EST 11/28/2024 5:46 PM EST us Arlene Torres MD LAB BLOOD ORDERABLES Final Result [facility] [address] [place] [phone] [phone] documented in this encounter Visit Diagnoses Diagnosis Anemia, unspecified type- Primary Low back pain at multiple sites Depressive disorder Depressive disorder, not elsewhere classified Gastroesophageal reflux disease without esophagitis Esophageal reflux Aortic ejection murmur Chronic left shoulder pain Pain in joint, shoulder region Allergic reaction, initial encounter Dietary counseling Dietary surveillance and counseling Exercise counseling Class 2 severe obesity due to excess calories with serious comorbidity and body mass index (BMI) of 36.0 to 36.9 in adult ([facility]) Encounter for immunization documented in this encounter Additional Health Concerns Assessment Noted Time PHQ-9 Depression Total Score: 9 11/28/19 25 1:57 PM EST documented as of this encounter Care Teams Wire Twisting Machine Operator Relationship Specialty Start Date End Date Caryn Edmond MD [address] [place] [phone] PCP - General Family Medicine 08/13/21 documented as of this encounter
--- OUTSIDE RECORDS SUMMARY | 2024-11-28 19:04 | XMS_ITS | Encounter Summary ---
Author Organization [employer] Address [address] [facility] [address] [place] [address] Care Team Providers Care Shiatsu Therapist Name Role Phone Caryn Edmond MD Primary Care Provider [phone] Reason for Visit * Reason Onset Date Comments returning phone call 12/24/2022 Encounter Details Date Type Department Care Team ([facility] st Contact Info) Description 12/24/2022 Telephone [facility] [address] [place], [place] [phone] Caryn Edmond MD [address] [place] [address] returning phone call Social History Tobacco Use Types Packs/Day Years Used Date Smoking Tobacco: Never Passive Smoke Exposure: Never Smokeless Tobacco: Never Alcohol Use Standard Drinks/Week Comments Never 0 (1 standard drink = 0.6 oz pur e alcohol) Comments Unknown Sex and Gender Information Value Date Recorded Sex Assigned at Female 09/01/2022 10:14 AM EDT Legal Sex Female 10:14 AM EDT Gender Identity Female 09/01/2022 10:14 AM EDT Sexual Orientation Choose not to disclose 2021 10:14 AM EDT COVID-19 Exposure Response Date Recorded In the last 10 days, have yo u been in contact with someone who was confirmed or suspected to have Coronavirus/COVID-19? No / Unsure 12/08/2022 12:46 PM EST documented as of this encounter Miscellaneous Notes * Telephone Encounter - Haile Teixeira - 12/24/2022 3:50 PM EST Tc from pt returning phone call. Please contact at [phone] documented in this encounter Plan of Treatment Not on file documented as of this encounter Visit Diagnoses Not on filedocumented in this encounter Additional Health Concerns Assessment Noted Time PHQ-9 Depression Total Score: 3 12/08/19 23 1:18 PM EST documented as of this encounter Care Teams Shiatsu Therapist Relationship Specialty Start Date End Date Caryn Edmond MD [address] [place] [phone] PCP - General Family Medicine 08/13/21 documented as of this encounter
--- OUTSIDE RECORDS SUMMARY | 2024-11-28 19:04 | XMS_ITS | Clinical Summary ---
Author Organization [employer] Address [address] [facility] [address] [place] [address] Care Team Providers Care Cow Trimmer Name Role Phone Caryn Edmond MD Primary Care Provider [phone] Allergies No known active allergies Medications buPROPion XL (Wellbutrin XL) 150 MG 24 hr tablet take 1 tablet by oral route every day Active clonazePAM (KlonoPIN) 1 MG tablet take 1 tablet PO TID prn Active DULoxetine (Cymbalta) [address] capsule take 1 capsule by oral route every day Active omeprazole (PriLOSEC) [address] capsule take 1 capsule by oral route every day before a meal for acid reflux 09/05/20 22 Active anastrozole (Arimidex) 1 MG chemo tabletIndicati ons:source: oncology [place] Take 1 mg by mouth in the morning. Active docusate sodium (Colace) 100 MG capsuleIndicat ions:source: GI [facility] Take 100 mg by mouth at bedtime. Active gabapentin (Neurontin) 400 MG capsule Take 400 mg by mouth 3 times daily. 01/09/20 23 Active Senna-Time 8.6 MG tablet TAKE 2 TABLETS BY MOUTH EVERY DAY AT BEDTIME FOR CONSTIPATION 04/28/20 23 Active Ascorbic Acid (Vitamin C) 500 MG capsule Take 1 tablet by mouth in the morning. 120 capsule 3 05/04/20 23 Active calcium 500 MG tablet Take 1 tablet (500 mg) by mouth with breakfast and with evening meal. 180 tablet 1 05/04/20 23 Active ferrous gluconate (Fergon) 324 (38 Fe) MG tabletIndicati ons:Anemia, unspecified type Take 1 tablet (324 mg) by mouth in the morning. 90 tablet 1 05/04/20 23 Active ascorbid acid ER (Vitamin C) 500 MG ER capsule TAKE 1 CAPSULE BY MOUTH EVERY DAY IN THE MORNING 05/23/20 23 Active cholecalcifero l VITAMIN D (Vitamin D-3) 50 MCG (1999 UT) capsuleIndicat ions:Vitamin D deficiency TAKE 1 CAPSULE (50 MCG) BY MOUTH IN THE MORNING. 90 capsule 3 04/11/20 24 Active Oyster Shell Calcium 500 MG tablet TAKE 1 TABLET (500 MG) BY MOUTH WITH BREAKFAST AND WITH EVENING MEAL 180 tablet 1 05/11/20 24 Active Diclofenac Sodium 1 % gelIndications :Chronic left shoulder pain To apply to the affected area 3 times a day 100 g 11/28/19 25 Active loratadine (Claritin) 10 MG tabletIndicati ons:Allergic reaction, initial encounter Take 1 tablet (10 mg) by mouth Once per day. 30 tablet 3 11/28/19 25 Active loratadine (Claritin) 10 MG tablet take 1 Tablet by Oral route every day as needed 09/05/20 22 2024 Discontinued(R eorder (will not trigger notification to Pharmacy)) Active Problems Problem Noted Date Diagnosed Date Physical exam 08/17/2023 Assessment & Plan (08/17/2023 12:58 PM EDT): 62 y.o. female here for CPE. Health screenings up to date, reviewed labs. Sent RSV to pharmacy. Counseled on healthy diet and physical activity. Need for RSV vaccination 08/17/2023 Anemia 02/26/2023 Assessment & Plan (07/29/2023 9:46 AM EDT): Will send for labs to check hemoglobin levels. Assessment & Plan (05/04/2023 1:24 PM EDT): Improvement of hemoglobin labs and will repeat in 3 months. Assessment & Plan (02/26/2023 9:46 AM EDT): Patient with continued anemia. Unable to start on iron supplementation due to issue at pharmacy. Advised to start iron supplementation and will send labs to recheck levels, to be done in 4 weeks. Will follow up with results and follow up with me in 3 months. Low back pain at multiple sites 12/08/2022 Assessment & Plan (01/19/2023 1:18 PM EDT): Still present but not as severe as it was last time. Will continue with OTC meds. Declined PT/pain management referral. RTC in 3 months. Assessment & Plan (12/08/2022 5:22 PM EST): Ddx sacroilitis and trocanteric bursitis, responded well to toradol IM. Will send muscle relaxer and oral med. Will send X ray and f/u with results. If no improvement consider further testing and referral to PT Intraductal carcinoma in situ of breast 10/04/20 Assessment & Plan (05/04/2023 1:39 PM EDT): Mammogram scheduled for September 2023. Allergic rhinitis 07/13/2013 Arthritis 07/13/2013 Depressive disorder 07/13/2013 Gastroesophageal reflux disease 07/13/2013 History of cholecystectomy 07/13/2013 Obesity 07/13/2013 Assessment & Plan (08/17/2023 11:03 AM EDT): Discussed calorie deficit, recommended reduction of 20-30% of maintenance calories; motel maid referral offered. Recommended to decrease soda and sugary beverage consumption. Recommended at least 20 g per meal of protein to assist with satiety. Recommended at least 150 min/week of moderate intensity exercise. Assessment & Plan (07/29/2023 9:45 AM EDT): Discussed calorie deficit, recommended reduction of 20-30% of maintenance calories; motel maid referral offered. Recommended to decrease soda and sugary beverage consumption. Recommended at least 20 g per meal of protein to assist with satiety. Recommended at least 150 min/week of moderate intensity exercise. Assessment & Plan (05/04/2023 1:40 PM EDT): Will send labs to check levels. Encounters Date Type Department Care Team Description 11/28/2024 2:00 PM EST Office Visit [facility] [address] [place] [address] Arlene Torres MD Anemia, unspecified type (Primary Dx); Low back pain at multiple sites; Depressive disorder; Gastroesophageal reflux disease without esophagitis; Aortic ejection murmur; Chronic left shoulder pain; Allergic reaction, initial encounter; Dietary counseling; Exercise counseling; Class 2 severe obesity due to excess calories with serious comorbidity and body mass index (BMI) of 36.0 to 36.9 in adult (CMS/[facility]); Encounter for immunization 11/28/2024 Travel 10/20/2024 Patient Outreach [facility] [address] [place] [address] Caryn Edmond MD Pre-visit Planning (SDOH negative. Tobacco screening negative. ) from Last 3 Months Immunizations Name Administration Dates Next Due Influenza injectable quadriv alent IIV4 with preservative 08/04/2018,11/26/2017 Influenza injectable quadriv alent preservative free 07/29/2023,09/05/2022,08/14/2021,2019,09/07/2019,01/01/2015 Influenza, IIV3, injectable 09/05/2022 Influenza, Split (incl. brad fied surface antigen) 09/13/2013 Influenza, seasonal, injecta ble, preservative free 11/28/2024 Sazze SARS-CoV-2 Vaccination 01/16/2021 Pfizer Covid-19 Vaccine 12+ 11/28/2024 Pneumococcal Conjugate PCV 20 11/28/2024 RSV Adjuvant 08/17/2023(Deferred: Other) TD (adult), 2 Lf tetanus tox oid, preservative free, adsorbed 12/11/1994 Tdap 01/19/2023,08/06/2010 Zoster, Recombinant 05/23/2020,01/05/2020 Social History Tobacco Use Types Packs/Day Years [...] not to disclose 2021 10:14 AM EDT Last Filed Vital Signs Vital Sign Reading [...] Mass Index 36 11/28/2024 1:55 PM EST Plan of Treatment Health Maintenance Due Date Last Done Comments CT Colonography 1960 FIT DNA/Cologuard 1960 FIT 1960 FOBT 1960 Sigmoidoscopy 1960 Alcohol/Substance Use Screening 1970 Mammogram 09/14/2024 03/14/2024, 09/02, 03/04/2023, Additional history exists Depression Monitoring (PHQ-9) 05/28/2025 11/28/2024, 11/28/2024 SDOH Screening 10/20/2025 10/20/2024 Depression Screening 11/28/2025 11/28/2024, 11/28/19 Tobacco Screening 11/28/2025 11/28/2024 Cervical Cancer Screening 02/12/2026 HPV/Cotest 02/12/2026 02/12/2021 Pap Smear 02/12/2026 02/12/2021 Lipid Panel 01/20/2028 11/28/2024, 01/01, 06/04/2021, Additional history exists Colonoscopy 04/08/2028 04/08/2023, 05/2023, 11/05/2017 Colorectal Cancer Screening 04/08/2028 DTaP/Tdap/Td Vaccines (3 - Td or Tdap) 01/19/2033 01/19/2023, 08/06/2010, 12/11/1994 RSV Patients and Patients Aged 60 years or older (1 - 1-dose 75+ series) 2033 Zoster Vaccines Completed 05/23/2020, 01/05/2020 Hepatitis C Screening Completed 07/29/2023 COVID-19 Vaccine Completed 11/28/2024, 09/2022, 01/16/2021 Influenza Vaccine Completed 11/28/2024, , 09/05/2022, Additional history exists Pneumococcal Vaccine: 65+ Years Completed 11/28/2024 HIB Vaccines Aged Out No longer eligi ble based on patient's age to complete this topic HPV Vaccines Aged Out No longer eligi ble based on patient's age to complete this topic Hepatitis A Vaccines Aged Out No long er eligible based on patient's age to complete this topic Hepatitis B Vaccines Aged Out No long er eligible based on patient's age to complete this topic IPV Vaccines Aged Out No longer eligi ble based on patient's age to complete this topic Meningococcal Vaccine Aged Out No vance karine eligible based on patient's age to complete this topic RSV under 20 months Aged Out No longe r eligible based on patient's age to complete this topic Rotavirus Vaccines Aged Out No longer eligible based on patient's age to complete this topic Procedures Procedure Name Priority Date/Time Associated Diagnosis Comments TSH W/REFLEX TO FT4 Routine 11/28/2024 2 :39 PM EST Anemia, unspecified type LIPID PANEL, STANDARD Routine 11/28/2024 2:39 PM EST Anemia, unspecified type COMPREHENSIVE METABOLIC PANEL Routine 11/28/2024 2:39 PM EST Anemia, unspecified type CBC WITH AUTO DIFFERENTIAL Routine 11/28/2024 2:39 PM EST Anemia, unspecified type BI MAMMOGRAM SCREENING TOMOSYNTHESIS BILATERAL Routine 03/14/2024 1:30 PM EDT HEPATITIS C ANTIBODY Routine 07/29/2023 9:58 AM EDT Encounter for health-related screening COLONOSCOPY Routine 04/08/2023 1:22 PM EDT HPV MRNA E6/E7 Routine 02/12/2021 1:16 PM EDT THINPREP IMAGING SYSTEM PAP Routine 02/12/2021 1:16 PM EDT from Last 3 Months or Most Recently Relevant to Health Maintenance Results * TSH W/Reflex to FT4 (11/28/2024 2:39 PM EST) TSH reflex Free T4 1.02 0.32 - 4.0 uIU/mL [facility] Blood Venous blood specimen / Unknown 11/28/2024 2:39 PM EST 11/28/2024 5:46 PM EST us Arlene Torres MD LAB BLOOD ORDERABLES Final Result [facility] [address] [place] [phone] * (ABNORMAL) CBC auto differential (11/28/2024 2:39 PM EST) White Blood Count 6.1 4.8 - 10.8 X10*3/uL [facility] Red Blood Count 3.88(L) 4.20 - 5.50 X10*6/uL [facility] Hemoglobin 11.5(L) 12.0 - 16.0 g/dl [facility] Hematocrit 36.4(L) 37.0 - 47.0 % [facility] Mean Corpuscular Volume 93.8 80.0 - 98.0 fL [facility] Mean Corpuscular Hemoglobin 29.6 27.0 - 33.0 pg [facility] Mean Corpuscular HGB Conc 31.6 31.0 - 35.0 g/dl [facility] Red Cell Distribution Width 14.7 11.0 - 16.0 % [facility] Platelet Count 242 160 - 400 X10*3/uL [facility] Mean Platelet Volume 11.3 9.4 - 12.3 fL [facility] Neutrophils Percent Auto 51.1 45 - 73 % [facility] Imm Gran Pct Auto 0.2 0.0 - 0.4 % [facility] Lymphocytes Percent Auto 34.5 20 - 40 % [facility] Monocytes Percent Auto 10.0 2 - 11 % [facility] Eosinophils Percent Auto 3.5 0 - 4 % [facility] Basophils Percent Auto 0.7 0 - 2 % [facility] NRBC Pct Auto 0.0 0.0 - 0.2 /100WBC [facility] Neutrophils Absolute Auto 3.1 2.0 - 8.3 x10*3/uL [facility] Imm Gran Abs Auto 0.01 0.00 - 0.03 X10*3/uL [facility] Lymphocytes Absolute Auto 2.1 1.2 - 4.9 X10*3/uL [facility] Monocytes Absolute Auto 0.6 0.1 - 1.2 X10*3/uL [facility] Eosinophils Absolute Auto 0.2 0.0 - 0.4 X10*3/uL [facility] Basophils Absolute Auto 0.0 0.0 - 0.2 X10*3/uL [facility] NRBC Abs Auto 0.000 0.0 - 0.012 X10*3/uL [facility] Blood Venous blood specimen / Unknown 11/28/2024 2:39 PM EST 11/28/2024 5:46 PM EST Arlene Torres MD LAB BLOOD ORDERABLES Final Result [facility] [address] [place] [phone] * Lipid Panel, Standard (11/28/2024 2:39 PM EST) Triglycerides 62 <150 mg/dL [facility] Comment:Desirable Triglyceri de: less than 150 mg/dLBorderline High Triglyceride 150-199 mg/dLHigh Triglyceride: 200-499 mg/dLVery High Triglyceride: greater than or equal to 5OO mg/dL Cholesterol 158 <200 mg/dL [facility] Comment:Desirable Cholestero l: less than 200 mg/dLBorderline High Cholesterol: 200-239 mg/dLHigh Cholesterol: greater than 239 mg/dL LDL Cholesterol Calculated 86 <100 mg/dL [facility] Comment:Desirable LDL: less than 100 mg/dLNear Optimal/Above Optimal LDL: 110- 129 mg/dLBorderline High LDL: 130-159 mg/dLHigh LDL: 160-189 mg/dLVery High LDL: greater than or equal to 190 mg/dL HDL Cholesterol 60 >40 mg/dL [facility] Comment:Desirable HDL: great er than 40 mg/dL Note: This HDL assay may give artificially low results in patients with liver disease. Blood Venous blood specimen / Unknown 11/28/2024 2:39 PM EST 11/28/2024 5:46 PM EST us Thevenin Beauzile MD LAB BLOOD ORDERABLES Final Result Performing Organization Address [facility]/ZIP Co de Phone Number [facility] [address] [place] [phone] * (ABNORMAL) Comprehensive Metabolic Panel (11/28/2024 2:39 PM EST) Sodium 141 135 - 145 mmol/L [facility] Potassium 4.0 3.3 - 5.1 mmol/L [facility] Chloride 110(H) 96 - 108 mmol/L [facility] Carbon Dioxide 26 22 - 29 mmol/L [facility] Anion Gap 9(L) 12 - 20 [facility] Urea Nitrogen (BUN) 11 9 - 16 mg/dL [facility] Creatinine, Serum 0.91 0.5 - 1.4 mg/dL [facility] Estimated Glomerular Filt Rate >60 [facility] Comment:Chronic Kidney Disea se: Estimated GFR < 60 mL/min/1.63h3Rmlpfr Kidney Disease: Estimated GFR < 15 mL/min/1.73m2 Glucose 87 60 - 115 mg/dL [facility] Calcium 9.2 8.4 - 10.2 mg/dL [facility] Bilirubin, Total 0.3 0.0 - 1.0 mg/dL [facility] Aspartate Amino Transferase 27 5 - 31 U/L [facility] Alanine Aminotransferase 11 0 - 31 U/L [facility] Total Protein 8.5(H) 6.5 - 8.0 g/dL [facility] Albumin Level 4.0 3.5 - 5.0 g/dL [facility] Alkaline Phosphatase 78 39 - 117 U/L [facility] Blood Venous blood specimen / Unknown 11/28/2024 2:39 PM EST 11/28/2024 5:46 PM EST us Arlene Torres MD LAB BLOOD ORDERABLES Final Result Performing Organization Address [facility]/ZIP Co de Phone Number [facility] [address] [place] [phone] * BI Mammogram Screening Tomosynthesis Bilateral (03/14/2024 1:30 PM EDT) Anatomical Region Laterality Modality Breast Bilateral Mammography 03/14/2024 1:30 PM EDT Narrative 04/14/2024 3:21 PM EDT ? [facility] [place] ? [address] ?[place] [address] ? Mammography Report ? Signed ? Patient: Sun,Sari ?MR#: [id number] ?? [id number] ? : 1960 ?Acct:[id number] ? Age/Sex: 63 / F ?ADM Date: 03/14/24 ? Loc: HO.MAMMO ? Attending Dr: Caryn Edmond MD ? Ordering Physician: Caryn Edmond MD ?Results: 2Beni ?? gn Findings ? Date of Service: 03/14/24 ?Follow Up: 1 Year From Orig ?? inal Mammogram ? Procedure(s): MM tomosynthesis screening BI ?? Accession Number(s): [id number] ? cc: Caryn Edmond MD ? EXAMINATION: [...] by Veronica Martinez MD in OV> ? 04/14/24 1517 ? DD/ 1330 ? TD/TT: ? Pharmacist: ? Procedure Note Stephanie, Image - 04/14/2024 [facility] [address] [place] [address] Mammography Report Signed Patient: Marcio Sun#: [id number] : 9Acct:[id number] Age/Sex: 63 / FADM Date: 03/14/24 Loc: JOSE Attending Dr: Caryn Edmond MD Ordering Physician: Caryn Edmondesults: 2Beni gn Findings Date of Service: 03/14/24Follow Up: 1 Year From Orig inal Mammogram Procedure(s): MM tomosynthesis screening BI Accession Number(s): [id number] cc: Caryn Edmond MD EXAMINATION: MM SCREENING [...] in OV> 04/14/24 1517 DD/ 1330 TD/TT: Pharmacist: Caryn Edmond MD IMG BI PROCEDURES Final Resul t * Hepatitis C Ab (07/29/2023 9:58 AM EDT) Hepatitis C Antibody Nonreactive Nonreactive [facility] Comment:Antibodies to HCV no t detected; does not exclude early acuteHCV infection. Blood 07/29/2023 9:58 AM EDT 07/29/2023 2:42 PM EDT Caryn Edmond MD LAB BLOOD ORDERABLES Final Re sult [facility] [address] [place] [phone] * Colonoscopy (04/08/2023 1:22 PM EDT) Anatomical Region Laterality Modality Endoscopy Narrative 04/08/2023 1:22 PM EDT Pathology 7-8 mm sessile polyp, path is tubular adenoma us Historical Provider ENDOSCOPY PROCEDURE ORDER FELIPE Final Result * THINPREP TIS PAP (02/12/2021 1:16 PM EDT) Clinical Information: None given [facility] COMMENT [facility] Comment: EXPLANATORY NOTE: ? The Pap is a screening test for cervical cancer. It is ?? not a diagnostic test and is subject to false negative ?? and false positive results. It is most reliable when a ?? satisfactory sample, regularly obtained, is submitted ?? with relevant clinical findings and history, and when ?? the Pap result is evaluated along with historic and ?? current clinical information. ?? COMMENT: [facility] Comment: This Pap test has been evaluated with computer assisted technology. Microscopic features suggestive of lubricant. Lubricant jellies may interfere with slide preparation; their use is not recommended. Dealer Development Manager: SEE [facility] Comment: JXM, CT(ASCP) CT screening location: [address] ??[id number] Interpretation/Res ult: SEE COMMENT [facility] Comment: Negative for intraepithelial lesion or malignancy. Atrophic pattern; predominantly parabasal cells LMP: NONE [facility]IVEN [facility] Prev. BX: NONE [facility]IV[facility] Prev. PAP: NONE GIVEN [facility] SOURCE: None given [facility] Statement Of Adequacy: SATISFACTORY FOR EVALUATION [facility] 02/12/2021 1:16 PM EDT us Caryn Edmond MD LAB PATHOLOGY ORDERABLES Destiny back Result [facility] [address] * HPV mRNA E6/E7 (02/12/2021 1:16 PM EDT) HPV nRNA E6/E7 Not Detected Not Detected [facility] Comment: Methodology: Methodologist-Mediated Amplification This assay detects E6/E7 viral messenger RNA (mRNA) from 14 high-risk HPV types (16,18,31,33,35,39,45,51,52,56,58,59,66,68). ? The analytical performance characteristics of this assay have been determined by [employer]. The modifications have not been cleared or approved by the FDA. This assay has been validated pursuant to the CLIA regulations and is used for clinical purposes. ?? For additional information, please refer to http://education.Perdoo/faq/PHV073n4 (This link if provided for information/ educational purposes only.) 02/12/2021 1:16 PM EDT us Caryn Edmond MD LAB BLOOD ORDERABLES Final Re sult [facility] [address] from Last 3 Months or Most Recently Relevant to Health Maintenance Insurance [facility] [employer] (O D-SNP) [employer] [id number] Care Teams Cow Trimmer Relationship Specialty Start Date End Date Caryn Edmond MD [address] [place] [address] PCP - General Family Medicine 08/13/21
== END 2024-11-28 14:39 | disposition home or self-care (01) ==
LOC: HO.CHCLDS 14:38
PROVIDERS: Visit Provider Internal Medicine
DX: D64.9 Anemia, unspecified (principal)
CPT/HCPCS: 36415; 80053; 80061; 84443; 85025

== ENCOUNTER → 2024-12-14 13:43 | Outpatient (REF) | payer OTHER, SELFPAY ==
--- NOTE | 2024-12-14 13:46 | CA_ITS ---
Transthoracic Echocardiogram Patient (Last, First, Middle): Sari Sun, Gender: Female Date of : 1960 Age: 64 Procedure Date: 12/14/2024 Procedure Type: Transthoracic Echocardiogram Location: OP Height: 162. cm Weight: 96.16 kg BSA: 2.00 m2 Heart Rate: 65 bpm BP: 115 / 75 mmHg Biotech Production Specialist: JOSE Delong MD: Arlene Torres MD Looseleaf Binder Coverer: Bryan Cordova MD Symptoms: AORTIC Ejection MURMUR I35.1 Study Quality: Fair ECG Rhythm: Sinus Conclusions: - Essentially normal study Findings Left Ventricle Normal left ventricular size, thickness, and systolic function. Regional wall motion abnormalities can not be excluded due to suboptimal endocardial definition. Spectral Doppler is indicative of a normal filling pattern. Right Ventricle Normal right ventricular cavity size and systolic function. Atria Both atria are normal in size. Interatrial shunt cannot be excluded. Aortic Valve Normal aortic valve structure and function. There is no aortic valve stenosis. There is no aortic valve regurgitation. Mitral Valve Normal mitral valve structure and function. There is trace mitral valve regurgitation. There is no mitral valve stenosis. Pulmonic Valve The pulmonic valve was not well visualized. Tricuspid Valve Likely normal tricuspid valve structure and function. There is trace tricuspid valve regurgitation. The right ventricular systolic pressure is normal. The right ventricular systolic pressure is 22 mmHg. Normal right atrial pressure. There is no evidence of pulmonary hypertension. Great Vessels All visible segments of the aorta are normal in size. The pulmonary artery was not well visualized. Venous The inferior vena cava is normal in size and collapses greater than 50% with inspiration. Pericardium/Pleural There is no evidence of pericardial effusion. Prior Study Comparison No prior study available for comparison. Measurements 2D Linear Measurements IVSd: 1.06 0.6-0.9/0.6-1.0 cm LVIDd: 3.81 3.9-5.3/4.2-5.9 cm LVIDd Index: 1.91 2.4-3.2/2.2-3.1 cm/m2 LVIDs: 2.31 2.0-3.6 cm LVPWd: 1.05 0.7-1.1 cm LA Diam: 2.40 2.7-3.8/3.0-4.0 cm LAIDs Index: 1.20 1.5-2.3 cm/m2 LV Mass: 158.26 67-162/88-224 g LV Mass Index: 79.13 43-95/49-115 g/m2 LVOT Diam: 2.00 3.0+(-)1.3 cm 2D Systolic Function EF 4C: 55.30 >55% EF 2C: 60.80 >55% EF BiP: 56.30 >55% Mitral Valve MV Pk E: 0.90 MV PK A: 0.85 MV Decel Time: 222.00 E/A: 1.00 E'Lateral: 7.29 E'Medial: 6.31 E/E' Med: 14.20 E/E' Lat: 12.30 PHT: 65.00 MVA PHT: 3.38 Decel [place]: 4.04 Aortic Valve AoV Pk Julius: 1.16 AoV Mn Julius: 0.78 AoV VTI: 0.21 AoV Pk Grad: 5.00 Aov Mn Grad: 3.00 ALONA Cont.VTI: 2.36 LVOT LVOT Pk Julius: 0.92 LVOT Mn Julius: 0.60 LVOT VTI: 0.16 LVOT Pk Grad: 3.00 LVOT Mn Grad: 2.00 LVOT Diam: 2.00 LVOT Area: 3.14 Diastolic Function MV Pk E: 0.90 MV Pk A: 0.85 E/A: 1.00 E'Medial: 6.31 E/E' Med: 14.20 E' Laterial: 7.29 E/E' Lat: 12.30 Right Ventricle TAPSE (mm): 16.90 TVS' Julius: 11.40 Tricuspid Valve TR Pk Julius: 2.16 TR Pk Grad: 19.00 RA Press: 3.00 RVSP: 22.00 Great Vessels Aorta Sinus of Valsalva: 3.30 2.0-3.5 cm Ao Asc: 3.10 2.1-3.4 cm Pulmonary Valve PV Pk Julius: 1.00 Peak PV Grad: 4.00 Updated in Other Vendor System with Status of Final Bryan Cordova MD electronically signed on 12/14/2024 5:05:08 PM with status of Final
--- OUTSIDE RECORDS SUMMARY | 2024-12-14 15:07 | XMS_ITS | Encounter Summary ---
Author Organization [employer] Address [address] [facility] [address] [place] [address] Care Team Providers Care Chief Deputy Sheriff Name Role Phone Caryn Edmond MD Primary Care Provider [phone] Encounter Details Date Type Department Care Team [...] documented as of this encounter Care Teams Chief Deputy Sheriff Relationship Specialty Start Date End Date Caryn Edmond MD [address] [place] [address] PCP - General Family Medicine 08/13/21 documented as of this encounter
--- OUTSIDE RECORDS SUMMARY | 2024-12-14 15:07 | XMS_ITS | Encounter Summary ---
Author Organization [employer] Address [address] [facility] 7t [place] [address] Care Team Providers Care Coal Washer Name Role Phone Caryn Edmond MD Primary Care Provider [phone] Encounter Details Date Type Department Care Team ([facility] st Contact Info) Description 11/29/2024 Orders Only [facility] [address] [place], [place] [phone] Arlene Torres MD [address] [place], [place] [phone] Anemia, unspecified type (Primary Dx) Social History Tobacco Use Types Packs/Day Years [...] as of this encounter Plan of Treatment Scheduled Orders Name Type Priority Associated Diagnoses Orde r Schedule CBC auto differential Lab Routine Anemia, unspecified type Expected: 11/29/2024 (Approximate), Expires: 11/29/2025 documented as of this encounter Visit Diagnoses Diagnosis Anemia, unspecified type- Primary documented in this encounter Additional Health Concerns Assessment Noted Time PHQ-9 Depression Total Score: 9 11/28/19 25 1:57 PM EST documented as of this encounter Care Teams Coal Washer Relationship Specialty Start Date End Date Caryn Edmond MD [address] [place] [address] PCP - General Family Medicine 08/13/21 documented as of this encounter
--- OUTSIDE RECORDS SUMMARY | 2024-12-14 15:07 | XMS_ITS | Clinical Summary ---
Author Organization [employer] Address [address] [facility] 7t [place] [address] Care Team Providers Care Claims Technician Name Role Phone Caryn Edmond MD Primary Care Provider Allergies No known active allergies Medications buPROPion [...] day. 30 tablet 3 11/28/19 25 Active ferrous gluconate (Fergon) 324 (38 Fe) MG tabletIndicati ons:Anemia, unspecified type Take 1 tablet (324 mg) by mouth with breakfast. 30 tablet 11 11/29/19 25 2025 Active loratadine (Claritin) 10 MG tablet take [...] recommended reduction of 20-30% of maintenance calories; building drafter referral offered. Recommended to decrease soda and sugary beverage consumption. Recommended at least 20 g per meal of protein to assist with satiety. Recommended at least 150 min/week of moderate intensity exercise. Assessment & Plan (07/29/2023 9:45 AM EDT): Discussed calorie deficit, recommended reduction of 20-30% of maintenance calories; building drafter referral offered. Recommended to decrease soda and sugary beverage consumption. Recommended at least 20 g per meal of protein to assist with satiety. Recommended at least 150 min/week of moderate intensity exercise. Assessment & Plan (05/04/2023 1:40 PM EDT): Will send labs to check levels. Encounters Date Type Department Care Team Description 11/29/2024 Telephone [facility] [address] [place] [address] Latasha Ariza RN Results 11/29/2024 Orders Only [facility] [address] [place] [address] Arlene Torres MD Anemia, unspecified type (Primary Dx) 11/28/2024 2:00 PM EST Office Visit [facility] [address] [place] [address] Arlene Torres MD Anemia, unspecified type (Primary Dx); Low back pain at multiple sites; Depressive disorder; Gastroesophageal reflux disease without esophagitis; Aortic ejection murmur; Chronic left shoulder pain; Allergic reaction, initial encounter; Dietary counseling; Exercise counseling; Class 2 severe obesity due to excess calories with serious comorbidity and body mass index (BMI) of 36.0 to 36.9 in adult (CMS/[facility]); Encounter for immunization 11/28/2024 Travel 10/20/2024 Patient Outreach [facility] [address] [place] [address] Caryn Edmond MD Pre-visit Planning (SDOH negative. Tobacco screening negative. ) from Last 3 Months Immunizations Name Administration Dates Next Due Influenza injectable quadriv alent IIV4 with preservative 08/04/2018,11/26/2017 Influenza injectable quadriv alent preservative free 07/29/2023,09/05/2022,08/14/2021,2019,09/07/2019,01/01/2015 Influenza, IIV3, injectable 09/05/2022 Influenza, Split (incl. brad fied surface antigen) 09/13/2013 Influenza, seasonal, injecta ble, preservative free 11/28/2024 [employer] SARS-CoV-2 Vaccination 01/16/2021 Pfizer Covid-19 Vaccine 12+ [...] 1960 Sigmoidoscopy 1960 Alcohol/Substance Use Screening 1970 RSV Patients and Patients Aged 60 years or older (1 - Risk 60-74 years 1-dose series) 2018 Mammogram 09/14/2024 03/14/2024, 09/02, 03/04/2023, Additional history exists Depression Monitoring (PHQ-9) 05/28/2025 11/28/2024, 11/28/2024 SDOH Screening 10/20/2025 10/20/2024 Depression Screening 11/28/2025 11/28/2024, 11/28/19 25 Tobacco Screening 11/28/2025 11/28/2024 HPV/Cotest 02/12/2026 02/12/2021 Pap Smear 02/12/2026 02/12/2021 Colonoscopy 04/08/2028 04/08/2023, 06/0 05/2023, 11/05/2017 Colorectal Cancer Screening 04/08/2028 Lipid Panel 11/28/2029 11/28/2024, 03/2 , 06/04/2021, Additional history exists DTaP/Tdap/Td Vaccines (3 - Td or Tdap) 01/19/2033 01/19/2023, 08/06/2010, 12/11/1994 Zoster Vaccines Completed 05/23/2020, 01/05/2020 Hepatitis C Screening Completed 07/29/2023 COVID-19 Vaccine Completed 11/28/2024, 09/2022, 01/16/2021 Influenza Vaccine Completed 11/28/2024, , 09/05/2022, Additional history exists Pneumococcal Vaccine: 50+ Years Completed 11/28/2024 HIB Vaccines Aged Out [...] T4 1.02 0.32 - 4.0 uIU/mL [facility] Blood Venous blood specimen / Unknown 11/28/2024 2:39 PM EST 11/28/2024 5:46 PM EST us Arlene Torres MD LAB BLOOD ORDERABLES Final Result [facility] [address] [place], [place] [phone] * (ABNORMAL) CBC auto differential (11/28/2024 2:39 PM EST) White Blood Count 6.1 4.8 - 10.8 X10*3/uL [facility] Red Blood Count 3.88(L) 4.20 - 5.50 X10*6/uL [facility] Hemoglobin 11.5(L) 12.0 - 16.0 g/dl [facility] Hematocrit 36.4(L) 37.0 - 47.0 % [facility] Mean Corpuscular Volume 93.8 80.0 - 98.0 fL [facility] Mean Corpuscular Hemoglobin 29.6 27.0 - 33.0 pg [facility] Mean Corpuscular HGB Conc 31.6 31.0 - 35.0 g/dl [facility] Red Cell Distribution Width 14.7 11.0 - 16.0 % [facility] Platelet Count 242 160 - 400 X10*3/uL [facility] Mean Platelet Volume 11.3 9.4 - 12.3 fL [facility] Neutrophils Percent Auto 51.1 45 - 73 % [facility] Imm Gran Pct Auto 0.2 0.0 - 0.4 % [facility] Lymphocytes Percent Auto 34.5 20 - 40 % [facility] Monocytes Percent Auto 10.0 2 - 11 % [facility] Eosinophils Percent Auto 3.5 0 - 4 % [facility] Basophils Percent Auto 0.7 0 - 2 % [facility] NRBC Pct Auto 0.0 0.0 - 0.2 /100WBC [facility] Neutrophils Absolute Auto 3.1 2.0 - 8.3 x10*3/uL [facility] Imm Gran Abs Auto 0.01 0.00 - 0.03 X10*3/uL [facility] Lymphocytes Absolute Auto 2.1 1.2 - 4.9 X10*3/uL [facility] Monocytes Absolute Auto 0.6 0.1 - 1.2 X10*3/uL [facility] Eosinophils Absolute Auto 0.2 0.0 - 0.4 X10*3/uL [facility] Basophils Absolute Auto 0.0 0.0 - 0.2 X10*3/uL [facility] NRBC Abs Auto 0.000 0.0 - 0.012 X10*3/uL [facility] Blood Venous blood specimen / Unknown 11/28/2024 2:39 PM EST 11/28/2024 5:46 PM EST us Arlene Torres MD LAB BLOOD ORDERABLES Final Result [facility] [address] [place] [phone] * Lipid Panel, Standard (11/28/2024 2:39 PM EST) Triglycerides 62 <150 mg/dL [facility] Comment:Desirable Triglyceri de: less than 150 mg/dLBorderline High Triglyceride 150-199 mg/dLHigh Triglyceride: 200-499 mg/dLVery High Triglyceride: greater than or equal to 5OO mg/dL Cholesterol 158 <200 mg/dL [facility] Comment:Desirable Cholestero l: less than 200 mg/dLBorderline High Cholesterol: 200-239 mg/dLHigh Cholesterol: greater than 239 mg/dL LDL Cholesterol Calculated 86 <100 mg/dL [facility] Comment:Desirable LDL: less than 100 mg/dLNear Optimal/Above Optimal LDL: 110- 129 mg/dLBorderline High LDL: 130-159 mg/dLHigh LDL: 160-189 mg/dLVery High LDL: greater than or equal to 190 mg/dL HDL Cholesterol 60 >40 mg/dL [facility] Comment:Desirable HDL: great er than 40 mg/dL Note: This HDL assay may give artificially low results in patients with liver disease. Blood Venous blood specimen / Unknown 11/28/2024 2:39 PM EST 11/28/2024 5:46 PM EST us Arlene Torres MD LAB BLOOD ORDERABLES Final Result [facility] [address] [place] [address] [phone] * (ABNORMAL) Comprehensive Metabolic Panel (11/28/2024 2:39 PM EST) Sodium 141 135 - 145 mmol/L [facility] Potassium 4.0 3.3 - 5.1 mmol/L [facility] Chloride 110(H) 96 - 108 mmol/L [facility] Carbon Dioxide 26 22 - 29 mmol/L [facility] Anion Gap 9(L) 12 - 20 [facility] Urea Nitrogen (BUN) 11 9 - 16 mg/dL [facility] Creatinine, Serum 0.91 0.5 - 1.4 mg/dL [facility] Estimated Glomerular Filt Rate >60 [facility] Comment:Chronic Kidney Disea se: Estimated GFR < 60 mL/min/1.44s6Nwmoza Kidney Disease: Estimated GFR < 15 mL/min/1.73m2 Glucose 87 60 - 115 mg/dL [facility] Calcium 9.2 8.4 - 10.2 mg/dL [facility] Bilirubin, Total 0.3 0.0 - 1.0 mg/dL [facility] Aspartate Amino Transferase 27 5 - 31 U/L [facility] Alanine Aminotransferase 11 0 - 31 U/L [facility] Total Protein 8.5(H) 6.5 - 8.0 g/dL [facility] Albumin Level 4.0 3.5 - 5.0 g/dL [facility] Alkaline Phosphatase 78 39 - 117 U/L [facility] Blood Venous blood specimen / Unknown 11/28/2024 2:39 PM EST 11/28/2024 5:46 PM EST us Arlene Torres MD LAB BLOOD ORDERABLES Final Result [facility] [address] [place] [address] [phone] * BI Mammogram Screening Tomosynthesis Bilateral (03/14/2024 1:30 PM EDT) Anatomical Region Laterality Modality Breast Bilateral Mammography 03/14/2024 1:30 PM EDT Narrative 04/14/2024 3:21 PM EDT ? [facility] [place] ? [address] ?[place] [address] ? Mammography Report ? Signed ? Patient: Sun,Sari ?MR#: [id number] ?? [id number] ? : 1960 ?Acct:[id number] ? Age/Sex: 63 / F ?ADM Date: 05/13/24 ? Loc: HO.MAMMO ? Attending Dr: Caryn Edmond MD ? Ordering Physician: Caryn Edmond MD ?Results: 2Beni ?? gn Findings ? Date of Service: //24 ?Follow Up: 1 Year From Orig ?? inal Mammogram ? Procedure(s): MM tomosynthesis screening BI ?? Accession Number(s): [id number] ? cc: Caryn Edmond MD ? EXAMINATION: [...] by Veronica Martinez MD in OV> ? 04/14/247 ? DD/ ? TD/TT: ? Account Executive Sales Representative: ? Procedure Note Stephanie, Julee - 04/14/2024 [facility] [address] [place] [address] Dr. [place], [place] [address] Mammography Report Signed Patient: Sari SunMR#: [id number] : 9Acct:[id number] Age/Sex: 63 / FADM Date: 03/14/24 Loc: CHERIEMolly Attending Dr: Caryn Edmond MD Ordering Physician: Caryn Edmond MDResults: 2Beni gn Findings Date of Service: 03/14/24Follow Up: 1 Year From Orig ina Mammogram Procedure(s): MM tomosynthesis screening BI Accession Number(s): [id number] cc: Caryn Edmond MD EXAMINATION: MM SCREENING [...] in OV> 04/14/24 1517 DD/ 1330 TD/TT: Account Executive Sales Representative: us Caryn Edmond MD IMG BI PROCEDURES Final Resul t * Hepatitis C Ab (07/29/2023 9:58 AM EDT) Hepatitis C Antibody Nonreactive Nonreactive [facility] Comment:Antibodies to HCV no t detected; does not exclude early acuteHCV infection. Blood 07/29/2023 9:58 AM EDT 07/29/2023 2:42 PM EDT us Caryn Edmond MD LAB BLOOD ORDERABLES Final Re sult [facility] [address] [place] [address] [phone] * Colonoscopy (04/08/2023 1:22 PM EDT) Anatomical Region Laterality Modality Endoscopy Narrative 04/08/2023 1:22 PM EDT Pathology 7-8 mm sessile polyp, path is tubular adenoma Historical Provider ENDOSCOPY PROCEDURE ORDER FELIPE Final [...] slide preparation; their use is not recommended. Assembling Motor Builder: SEE COMMENT [facility] Comment: JXM, CT(ASCP) CT screening location: [address] ??[id number] Interpretation/Res ult: SEE COMMENT [facility] Comment: Negative for intraepithelial lesion or malignancy. Atrophic pattern; predominantly parabasal cells LMP: NONE [facility] Prev. BX: NONE [facility] Prev. PAP: NONE [facility] SOURCE: None given [facility] Statement Of Adequacy: SATISFACTORY FOR EVALUATION [facility] 02/12/2021 1:16 PM EDT Caryn Edmond MD LAB PATHOLOGY ORDERABLES Destiny l Result Performing Organization Address [facility] Co de Phone Number [facility] [address] * HPV mRNA E6/E7 (02/12/2021 1:16 PM EDT) HPV nRNA E6/E7 Not Detected Not Detected [facility] Comment: Methodology: Operating Systems Programmer-Mediated Amplification This assay detects E6/E7 viral messenger RNA (mRNA) from 14 high-risk HPV types (16,18,31,33,35,39,45,51,52,56,58,59,66,68). ? The analytical performance characteristics of this assay have been determined by [employer]. The modifications have not been cleared or approved by the FDA. This assay has been validated pursuant to the CLIA regulations and is used for clinical purposes. ?? For additional information, please refer to http://education.[employer]/faq/HHA719n5 (This link if provided for information/ educational purposes only.) 02/12/2021 1:16 PM EDT Caryn Edmond MD LAB BLOOD ORDERABLES Final Re sult Performing Organization Address [facility] de Phone Number [facility] [address] from Last 3 Months or Most Recently Relevant to Health Maintenance Insurance [facility] RESIDENTIAL OPTIONS (O D-SNP) [employer] [id number] Care Teams Claims Technician Relationship Specialty Start Date End Date Caryn Edmond MD [address] [place] [phone] PCP - General Family Medicine 08/13/21
--- OUTSIDE RECORDS SUMMARY | 2024-12-14 15:07 | XMS_ITS | Encounter Summary ---
Author Organization [employer] Address [address] [facility] [address] [place] [address] Care Team Providers Care Embossing Unit Operator Name Role Phone Caryn Edmond MD Primary Care Provider [phone] Encounter Details Date Type Department Care Team (Late st Contact Info) Description 09/17/2023 Abstract [facility] MEDICINE [address] [place] [address] Misty Pereira Social History Tobacco Use Types [...] documented as of this encounter Care Teams Embossing Unit Operator Relationship Specialty Start Date End Date Caryn Edmond MD [address] [place] [address] PCP - General Family Medicine 08/13/21 documented as of this encounter
--- OUTSIDE RECORDS SUMMARY | 2024-12-14 15:07 | XMS_ITS | Encounter Summary ---
Author Organization [employer] Address [address] [facility] [address] [place] [address] Care Team Providers Care Hazmat Cdl Driver Name Role Phone Caryn Edmond MD Primary Care Provider [phone] Encounter Details Date Type Department Care Team (Late st Contact Info) Description 02/29/2024 Orders Only [facility] MED[facility] [address] [place] [address] ProviderSteve MD Social History Tobacco Use Types [...] EDT Narrative 04/14/2024 3:21 PM EDT ? [facility] ? [address] ?[place] [address] ? Mammography Report ? Signed ? Patient: Sun,Sari ?MR#: [id number] ?? [id number] ? : 1960 ?Acct:[id number] ? Age/Sex: 63 / F ?ADM Date: 05/13/24 ? Loc: HO.MAMMO ? Attending Dr: Caryn Edmond MD ? Ordering Physician: Caryn Edmond MD ?Results: 2Beni ?? gn Findings ? Date of Service: 03/14/24 ?Follow Up: 1 Year From Orig ?? inal Mammogram ? Procedure(s): MM tomosynthesis screening BI ?? Accession Number(s): [id number] ? cc: Caryn Edmond MD ? EXAMINATION: [...] 04/14/241516 ? DD/ 29 ? TD/TT: ? Music Publisher: ? Procedure Note Stephanie, Image - 04/14/2024 [facility] [address] [place], [place] [address] Mammography Report Signed Patient: Sari SunMR#: [id number] : 9Acct:[id number] Age/Sex: 63 / FADM Date: 03/14/24 Loc: HO.MAMMO Attending Dr: Caryn Edmond MD Ordering Physician: Caryn Edmond MDResults: 2Beni gn Findings Date of Service: 03/14/24Follow Up: 1 Year From Orig inal Mammogram Procedure(s): MM tomosynthesis screening BI Accession Number(s): [id number] cc: Cayrn Edmond MD EXAMINATION: MM SCREENING DIGITAL BREAST [...] in OV> 04/14/24 1517 DD/ 1330 TD/TT: Music Publisher: us Caryn Edmond MD IMG BI PROCEDURES Final Resul t * Hm Colonoscopy (11/05/2017 8:25 AM EST) us Historical Provider HEALTH MAINTENANCE Final Result documented in this encounter Visit Diagnoses Not on filedocumented in this encounter Additional Health Concerns Assessment Noted Time PHQ-9 Depression Total Score: 5 08/17/20 23 10:41 AM EDT documented as of this encounter Care Teams Hazmat Cdl Driver Relationship Specialty Start Date End Date Caryn Edmond MD [address] [place] [address] PCP - General Family Medicine 08/13/21 documented as of this encounter
--- OUTSIDE RECORDS SUMMARY | 2024-12-14 15:07 | XMS_ITS | Encounter Summary ---
Author Organization [employer] Address [address] [place] [address] [address] [place] [place] [address] Care Team Providers Care Peeler Operator Name Role Phone Caryn Edmond MD Primary Care Provider [phone] Reason for Referral * Imaging (Routine) - Authorized Specialty Diagnoses / Procedures Referred By Nancy miller Referred To Contact Cardiology Diagnoses Aortic ejection murmur Procedures Transthoracic Echo (TTE) Complete Arlene Torres MD [address] [place] [address] Phone: tel: fax: [address] Phone: tel: fax: Referral ID Status Reason Start Date Expiration Date Visits Requested Visits Authorized [id number] Authorized Perform Procedure 11/28/2024 11/28/2025 1 1 Reason for Visit * Reason Comments Adult care Encounter Details Date Type Department Care Team (Late st Contact Info) Description 11/28/2024 2:00 PM EST Office Visit [facility]EDS [address] [place], [place] [phone] Arlene Torres MD [address] [place], [place] [phone] Anemia, unspecified type (Primary Dx); Low back pain at multiple sites; Depressive disorder; Gastroesophageal reflux disease without esophagitis; Aortic ejection murmur; Chronic left shoulder pain; Allergic reaction, initial encounter; Dietary counseling; Exercise counseling; Class 2 severe obesity due to excess calories with serious comorbidity and body mass index (BMI) of 36.0 to 36.9 in adult (CMS/[facility]); Encounter for immunization Social History Tobacco Use [...] cholecalciferol VITAMIN D (Vitamin D-3) 50 MCG (1999 UT) capsule TAKE 1 CAPSULE (50 MCG) [...] index (BMI) of36.0 to 36.9 in adult (CMS/[facility]) Discussed calorie deficit, recommended reduction of 20-30% of maintenance calories; needle straightener referral offered. Recommended to decrease soda and [...] Free T4 1.02 0.32 - 4.0 uIU/mL [facility] Blood Venous blood specimen / Unknown 11/28/2024 2:39 PM EST 11/28/2024 5:46 PM EST us Arlene Torres MD LAB BLOOD ORDERABLES Final Result [facility] [address] [place] [phone] * Lipid Panel, Standard (11/28/2024 2:39 PM EST) Triglycerides 62 <150 mg/dL [facility] Comment:Desirable Triglyceri de: less than 150 mg/dLBorderline High Triglyceride 150-199 mg/dLHigh Triglyceride: 200-499 mg/dLVery High Triglyceride: greater than or equal to 5OO mg/dL Cholesterol 158 <200 mg/dL [facility] Comment:Desirable Cholestero l: less than 200 mg/dLBorderline High Cholesterol: 200-239 mg/dLHigh Cholesterol: greater than 239 mg/dL LDL Cholesterol Calculated 86 <100 mg/dL [facility] Comment:Desirable LDL: less than 100 mg/dLNear Optimal/Above Optimal LDL: 110- 129 mg/dLBorderline High LDL: 130-159 mg/dLHigh LDL: 160-189 mg/dLVery High LDL: greater than or equal to 190 mg/dL HDL Cholesterol 60 >40 mg/dL [facility] Comment:Desirable HDL: great er than 40 mg/dL Note: This HDL assay may give artificially low results in patients with liver disease. Blood Venous blood specimen / Unknown 11/28/2024 2:39 PM EST 11/28/2024 5:46 PM EST us Arlene Torres MD LAB BLOOD ORDERABLES Final Result [facility] [address] [place] [address] [phone] * (ABNORMAL) Comprehensive Metabolic Panel (11/28/2024 2:39 PM EST) Sodium 141 135 - 145 mmol/L [facility] Potassium 4.0 3.3 - 5.1 mmol/L [facility] Chloride 110(H) 96 - 108 mmol/L [facility] Carbon Dioxide 26 22 - 29 mmol/L [facility] Anion Gap 9(L) 12 - 20 [facility] Urea Nitrogen (BUN) 11 9 - 16 mg/dL [facility] Creatinine, Serum 0.91 0.5 - 1.4 mg/dL [facility] Estimated Glomerular Filt Rate >60 [facility] Comment:Chronic Kidney Disea se: Estimated GFR < 60 mL/min/1.90y9Natxnp Kidney Disease: Estimated GFR < 15 mL/min/1.73m2 Glucose 87 60 - 115 mg/dL [facility] Calcium 9.2 8.4 - 10.2 mg/dL [facility] Bilirubin, Total 0.3 0.0 - 1.0 mg/dL [facility] Aspartate Amino Transferase 27 5 - 31 U/L [facility] Alanine Aminotransferase 11 0 - 31 U/L [facility] Total Protein 8.5(H) 6.5 - 8.0 g/dL [facility] Albumin Level 4.0 3.5 - 5.0 g/dL [facility] Alkaline Phosphatase 78 39 - 117 U/L [facility] Blood Venous blood specimen / Unknown 11/28/2024 2:39 PM EST 11/28/2024 5:46 PM EST us Arlene Torres MD LAB BLOOD ORDERABLES Final Result [facility] [address] [place], [place] [phone] * (ABNORMAL) CBC auto differential (11/28/2024 2:39 PM EST) White Blood Count 6.1 4.8 - 10.8 X10*3/uL [facility] Red Blood Count 3.88(L) 4.20 - 5.50 X10*6/uL [facility] Hemoglobin 11.5(L) 12.0 - 16.0 g/dl [facility] Hematocrit 36.4(L) 37.0 - 47.0 % [facility] Mean Corpuscular Volume 93.8 80.0 - 98.0 fL [facility] Mean Corpuscular Hemoglobin 29.6 27.0 - 33.0 pg [facility] Mean Corpuscular HGB Conc 31.6 31.0 - 35.0 g/dl [facility] Red Cell Distribution Width 14.7 11.0 - 16.0 % [facility] Platelet Count 242 160 - 400 X10*3/uL [facility] Mean Platelet Volume 11.3 9.4 - 12.3 fL [facility] Neutrophils Percent Auto 51.1 45 - 73 % [facility] Imm Gran Pct Auto 0.2 0.0 - 0.4 % [facility] Lymphocytes Percent Auto 34.5 20 - 40 % [facility] Monocytes Percent Auto 10.0 2 - 11 % [facility] Eosinophils Percent Auto 3.5 0 - 4 % [facility] Basophils Percent Auto 0.7 0 - 2 % [facility] NRBC Pct Auto 0.0 0.0 - 0.2 /100WBC [facility] Neutrophils Absolute Auto 3.1 2.0 - 8.3 x10*3/uL [facility] Imm Gran Abs Auto 0.01 0.00 - 0.03 X10*3/uL [facility] Lymphocytes Absolute Auto 2.1 1.2 - 4.9 X10*3/uL [facility] Monocytes Absolute Auto 0.6 0.1 - 1.2 X10*3/uL [facility] Eosinophils Absolute Auto 0.2 0.0 - 0.4 X10*3/uL [facility] Basophils Absolute Auto 0.0 0.0 - 0.2 X10*3/uL [facility] NRBC Abs Auto 0.000 0.0 - 0.012 X10*3/uL [facility] Blood Venous blood specimen / Unknown 11/28/2024 2:39 PM EST 11/28/2024 5:46 PM EST us Arlene Torres MD LAB BLOOD ORDERABLES Final Result Performing Organization Address City/State/[facility] Co de Phone Number [facility] [address] [place] [phone] documented in this encounter Visit Diagnoses [...] to 36.9 in adult ([facility]) Encounter for immunization documented in this encounter Additional Health Concerns Assessment Noted Time PHQ-9 Depression Total Score: 9 11/28/19 25 1:57 PM EST documented as of this encounter Care Teams Peeler Operator Relationship Specialty Start Date End Date Caryn Edmond MD [address] [place] [phone] PCP - General Family Medicine 08/13/21 documented as of this encounter
--- OUTSIDE RECORDS SUMMARY | 2024-12-14 15:07 | XMS_ITS | Encounter Summary ---
Author Organization [employer] Address [address] [facility] 7t [place] [address] Care Team Providers Care Math Specialist Name Role Phone Caryn Edmond MD Primary Care Provider [phone] Reason for Visit * Reason Onset Date Comments Results 11/29/2024 Encounter Details Date Type Department Care Team ([facility] st Contact Info) Description 11/29/2024 Telephone [facility] PED[facility] [address] [place], [place] [phone] Latasha Ariza RN Results Social History Tobacco Use Types Packs/Day Years [...] AM EDT documented as of this encounter Miscellaneous Notes * Telephone Encounter - Latasha Ariza RN - 11/29/2024 3:19 PM EST TC placed to pt and LVM to call back the office regarding results messaging below ----- Message from Arlene Torres MD sent at 11/29/2024 8:11 AM EST ----- Please call. Labs reviewed. The anemia has recurred. Patient should resume her iron supplementation. The prescription will be sent to her pharmacy. Please find out at the same time if Mrs.Celestina Sun has any mucocutaneous bleeding. She has a history of tubular adenoma of the colon and her next colonoscopy is due in 2027. She might need to have one sooner than that if she has any change in the color of her stools or any bright red blood per Rectum. She will need to repeat the CBC in 3 months and the order will be placed in her chart. ----- Message ----- From: Interface, Lab Results In Sent: 11/28/2024 6:01 PM EST To: Arlene Torres MD documented in this encounter Plan of Treatment Not on file documented as of this encounter Visit Diagnoses Not on filedocumented in this encounter Additional Health Concerns Assessment Noted Time PHQ-9 Depression Total Score: 9 11/28/19 25 1:57 PM EST documented as of this encounter Care Teams Math Specialist Relationship Specialty Start Date End Date Caryn Edmond MD [address] [place] [address] PCP - General Family Medicine 08/13/21 documented as of this encounter
--- OUTSIDE RECORDS SUMMARY | 2024-12-14 15:07 | XMS_ITS | Encounter Summary ---
Author Organization [employer] Address [address] [facility] 7t [place] [address] Care Team Providers Care Quarter Trimmer Name Role Phone Caryn Edmond MD Primary Care Provider [phone] Reason for Visit * Reason Onset Date Comments returning phone call 12/24/2022 Encounter Details Date Type Department Care Team ([facility] st Contact Info) Description 12/24/2022 Telephone [facility] MED & PEDS [address] [place], [place] [phone] Caryn Edmond MD [address] [place] [address] returning phone call Social History Tobacco Use [...] pt returning phone call. Please contact at [phone] documented in this encounter Plan of Treatment Not on file documented as of this encounter Visit Diagnoses Not on filedocumented in this encounter Additional Health Concerns Assessment Noted Time PHQ-9 Depression Total Score: 3 12/08/19 23 1:18 PM EST documented as of this encounter Care Teams Quarter Trimmer Relationship Specialty Start Date End Date Caryn Edmond MD [address] [place] [phone] PCP - General Family Medicine 08/13/21 documented as of this encounter
== END ==
LOC: HO.CARD 13:43
PROVIDERS: PCP Family Medicine; Visit Provider Internal Medicine
DX: I35.1 Nonrheumatic aortic (valve) insufficiency (principal)
CPT/HCPCS: 93306

== ENCOUNTER → 2024-12-14 13:46 | Outpatient (BNV) | payer OTHER, SELFPAY | PROVIDERS: PCP Family Medicine; Visit Provider Internal Medicine Cardiovascular Disease | DX: R01.1 Cardiac murmur, unspecified (principal) | CPT/HCPCS: 93306 ==

== ENCOUNTER 2025-03-06 10:47 | Outpatient (AMB) | payer OTHER, SELFPAY ==
--- NOTE | 2025-03-06 10:48 | MHC.OFFVIS ---
Vital Signs 03/06/25 10:49 Height 5 ft 4 in Weight 216 lb 0.848 oz BMI 37.1 BP 128/62 Blood Pressure Location Lt brachial Position Sitting Pulse 66 Pulse Source Pulse Oximeter Pulse Oximetry (%) 98 Oxygen Delivery Method Room Air Intake Visit Reasons: one year follow up, breast exam Intake Note: Patient here for 1 year breast exam. Hx of ductal carcinoma situ. Reports Rt breast incision site healed well. Patient c/o: none Mammogram: 03-16-2025 Accompanied by: Spouse Allergies No Known Allergies [No Known Allergies*] Allergy (Verified 03/06/25 10:51) Medication List - Last Reconciled 03/06/25 by Ivan Valdes MD anastrozole (Arimidex) 1 mg PO DAILY bupropion HCl SR (Wellbutrin SR) 100 mg PO BEDTIME bupropion HCl XL 150 mg PO QAM calcium carbonate 500 mg PO BID cholecalciferol (vitamin D3) 50 mcg PO QAM clonazepam 1 mg PO BEDTIME cyclobenzaprine 5 mg PO BEDTIME docusate sodium 100 mg PO BEDTIME duloxetine (Cymbalta) 60 mg PO DAILY ferrous sulfate (iron) 325 mg PO BID gabapentin 400 mg PO TID loratadine (Claritin) 10 mg PO DAILY nabumetone 500 mg PO BID sennosides (Natural Senna Laxative) 17.2 mg (2 x 8.6 mg) PO BEDTIME simethicone (Gas Relief (simethicone)) 125 mg PO TID PRN HPI HPI one year follow up, breast exam: Details: She is here for follow-up for history of DCIS of the right breast. She had undergone lumpectomy last April, and has completed radiation. She is still currently on Arimidex. She denies any significant complaints. Her last mammogram was in Mar, 2024 and this was unremarkable. She says she is scheduled to have her yearly mammogram in 2 weeks. 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 Family history of ovarian cancer Breast nodule GERD (gastroesophageal reflux disease) Allergic rhinitis Obesity Depression Arthritis Surgical History History of lumpectomy of right breast Hx of colonoscopy Hx of tubal ligation Hx of cholecystectomy Family History Sister Ovarian cancer HTN (hypertension) Hyperlipidemia Social History Household Members: Spouse and Children [facility] Are you a primary home visit field care manager to a significant other at home: No Do you presently have visiting nurse or other home services: No Alcohol intake: current Alcohol intake frequency: does not drink Patient Tobacco Use Status: Former Tobacco user Tobacco use type: Cigarette Years Smoked: 5 Second Hand Smoke Exposure: No service: No Current occupational status: disabled Female Reproductive History Menstrual Age of Menarche: 12 Review of Systems Const Denies chills and Denies fever(s) Card Denies chest pain, Denies dyspnea and Reports dyspnea on exertion Resp Denies cough, Denies dyspnea and Reports dyspnea on exertion GI Denies hematochezia and Denies change in bowel habits Denies hematuria Musc Denies back pain and Denies limited range of motion Neuro Denies focal weakness and Denies convulsions Psych Denies depression and Denies mood swings Physical Exam Vital Signs: Last Vital Signs Pulse 66 03/06/25 10:49 BP 128/62 03/06/25 10:49 Pulse Ox 98 03/06/25 10:49 Oxygen Delivery Method Room Air 03/06/25 10:49 BMI result Body Mass Index 37.1 Const Other: Morbidly obese General: comfortable and no acute distress Chest Other: She has very pendulous breasts, No palpable breast masses, no nipple or skin changes, no axillary lymphadenopathy Resp Effort & Inspection: normal respiratory effort Cardio Rate: regular rate GI Palpation (GI): Soft to palpation, not firm and nontender Assessment & Plan Assessment & Plan (1) History of ductal carcinoma in situ (DCIS) of breast: Code(s): Z86.000 - Personal history of in-situ neoplasm of breast Category: Medical Plan: Current exam does not suggest any new breast mass or any abnormality. She is actually scheduled to have her yearly mammograms in 2 weeks. We will review this. In the meantime, I reminded her that she should continue with her regular screening mammograms. I will see her in the office after her next mammogram next year if the mammogram for next week is unremarkable. Coding Level of Care Code Est Pt Level 3 (72363) Diagnoses History of ductal carcinoma in situ (DCIS) of breast Z86.000
[2025-03-06 10:49] VITALS: BP 128/62; PULSE 66; O2SAT 98; BMI 37.1
--- OUTSIDE RECORDS SUMMARY | 2025-03-06 12:18 | XMS_ITS | Encounter Summary ---
Author Organization [employer] Address [address] [facility] [address] 7t [place] [address] Care Team Providers Care Suture Polisher Name Role Phone Caryn Edmond MD Primary Care Provider [phone] Encounter Details Date Type Department Care Team (Late st Contact Info) Description 09/17/2023 Abstract [facility] [address] [place] [address] Misty Pereira Social History Tobacco Use Types [...] documented as of this encounter Care Teams Suture Polisher Relationship Specialty Start Date End Date Caryn Edmond MD [address] [place] [address] PCP - General Family Medicine 08/13/21 documented as of this encounter
--- OUTSIDE RECORDS SUMMARY | 2025-03-06 12:18 | XMS_ITS | Clinical Summary ---
Author Organization [employer] Address [address] [facility] 7t [place] [address] Care Team Providers Care Consumer Product Advisor Name Role Phone Caryn Edmond MD Primary Care Provider [phone] Allergies No known active allergies Medications buPROPion [...] day before a meal for acid reflux 2 Active anastrozole (Arimidex) 1 MG chemo tabletIndicatio ns:source: oncology [place] Take 1 mg by mouth in the morning. Active docusate sodium (Colace) 100 MG capsuleIndicati ons:source: GI [facility] Take 100 mg by mouth at bedtime. Active gabapentin (Neurontin) 400 MG capsule Take 400 mg by mouth 3 times daily. 3 Active Senna-Time 8.6 MG tablet TAKE 2 TABLETS BY MOUTH EVERY DAY AT BEDTIME FOR CONSTIPATION 3 Active Ascorbic Acid (Vitamin C) 500 MG capsule Take 1 tablet by mouth in the morning. 120 capsule 3 3 Active calcium 500 MG tablet Take 1 tablet (500 mg) by mouth with breakfast and with evening meal. 180 tablet 1 3 Active ferrous gluconate (Fergon) 324 (38 Fe) MG tabletIndicatio ns:Anemia, unspecified type Take 1 tablet (324 mg) by mouth in the morning. 90 tablet 1 3 Active ascorbid acid ER (Vitamin C) 500 MG ER capsule TAKE 1 CAPSULE BY MOUTH EVERY DAY IN THE MORNING 3 Active cholecalciferol VITAMIN D (Vitamin D-3) 50 MCG (1999 UT) capsuleIndicati ons:Vitamin D deficiency TAKE 1 CAPSULE (50 MCG) BY MOUTH IN THE MORNING. 90 capsule 3 4 Active Oyster Shell Calcium 500 MG tablet TAKE 1 TABLET (500 MG) BY MOUTH WITH BREAKFAST AND WITH EVENING MEAL 180 tablet 1 4 Active loratadine (Claritin) 10 MG tabletIndicatio ns:Allergic reaction, initial encounter Take 1 tablet (10 mg) by mouth Once per day. 30 tablet 3 5 Active ferrous gluconate (Fergon) 324 (38 Fe) MG tabletIndicatio ns:Anemia, unspecified type Take 1 tablet (324 mg) by mouth with breakfast. 30 tablet 11 5 11/29/19 26 Active Diclofenac Sodium 1 % gelIndications: Chronic left shoulder pain APPLY TO THE AFFECTED AREA 3 TIMES A DAY 100 g 5 Active Active Problems Problem Noted Date Diagnosed Date [...] recommended reduction of 20-30% of maintenance calories; babbitter referral offered. Recommended to decrease soda and sugary beverage consumption. Recommended at least 20 g per meal of protein to assist with satiety. Recommended at least 150 min/week of moderate intensity exercise. Assessment & Plan (07/29/2023 9:45 AM EDT): Discussed calorie deficit, recommended reduction of 20-30% of maintenance calories; babbitter referral offered. Recommended to decrease soda and sugary beverage consumption. Recommended at least 20 g per meal of protein to assist with satiety. Recommended at least 150 min/week of moderate intensity exercise. Assessment & Plan (05/04/2023 1:40 PM EDT): Will send labs to check levels. Encounters Date Type Department Care Team Description 12/29/2024 Refill [facility] [address] [place] [address] Arlene Torres MD Chronic left shoulder pain from Last 3 Months Immunizations Name Administration Dates Next Due Influenza injectable quadriv alent IIV4 with preservative 08/04/2018,11/26/2017 Influenza injectable quadriv alent preservative free 07/29/2023,09/05/2022,08/14/2021,2019,09/07/2019,01/01/2015 Influenza, IIV3, injectable 09/05/2022 Influenza, Split (incl. brad fied surface antigen) 09/13/2013 Influenza, seasonal, injecta ble, preservative free 11/28/2024 [facility] SARS-CoV-2 Vaccination 01/16/2021 Pfizer Covid-19 Vaccine 12+ [...] - Risk 60-74 years 1-dose series) 2018 Depression Monitoring 05/28/2025 11/28/2024, 025 SDOH Screening 10/20/2025 10/20/2024 Depression Screening 11/28/2025 11/28/2024, 11/28/19 25 Tobacco Screening 11/28/2025 11/28/2024 HPV/Cotest 02/12/2026 02/12/2021 Pap Smear 02/12/2026 02/12/2021 Colonoscopy 04/08/2028 04/08/2023, 06/0 05/2023, 11/05/2017 Colorectal Cancer Screening 04/08/2028 Lipid Panel 11/28/2029 11/28/2024, 03/, 06/04/2021, Additional history exists DTaP/Tdap/Td Vaccines (3 [...] Procedure Name Priority Date/Time Associated Diagnosis Comments LIPID PANEL, STANDARD Routine 11/28/2024 2:39 PM EST Anemia, unspecified type HEPATITIS C ANTIBODY Routine 07/29/2023 9:58 AM EDT Encounter for health-related screening COLONOSCOPY Routine 04/08/2023 1:22 PM EDT HPV MRNA E6/E7 Routine 02/12/2021 1:16 PM EDT [facility]INPREP IMAGING SYSTEM PAP Routine 02/12/2021 1:16 PM EDT from Last 3 Months or Most Recently Relevant to Health Maintenance Results * Lipid Panel, Standard (11/28/2024 2:39 PM EST) Triglycerides 62 <150 mg/dL [facility] Comment:Desirable Triglyceri de: less than 150 mg/dLBorderline High Triglyceride 150-199 mg/dLHigh Triglyceride: 200-499 mg/dLVery High Triglyceride: greater than or equal to 5OO mg/dL Cholesterol 158 <200 mg/dL [facility] Comment:Desirable Cholestero l: less than 200 mg/dLBorderline High Cholesterol: 200-239 mg/dLHigh Cholesterol: greater than 239 mg/dL LDL Cholesterol Calculated 86 <100 mg/dL [facility] Comment:Desirable LDL: less than 100 mg/dLNear Optimal/Above Optimal LDL: 110- 129 mg/dLBorderline High LDL: 130-159 mg/dLHigh LDL: 160-189 mg/dLVery High LDL: greater than or equal to 190 mg/dL HDL Cholesterol 60 >40 mg/dL [facility] Comment:Desirable HDL: great er than 40 mg/dL Note: This HDL assay may give artificially low results in patients with liver disease. Blood Venous blood specimen / Unknown 11/28/2024 2:39 PM EST 11/28/2024 5:46 PM EST Arlene Torres MD LAB BLOOD ORDERABLES Final Result [facility] [address] [place] [phone] * Hepatitis C Ab (07/29/2023 9:58 AM EDT) Hepatitis C Antibody Nonreactive Nonreactive [facility] Comment:Antibodies to HCV no t detected; does not exclude early acuteHCV infection. Blood 07/29/2023 9:58 AM EDT 07/29/2023 2:42 PM EDT Caryn Edmond MD LAB BLOOD ORDERABLES Final Re sult Performing Organization Address City/[facility]/ZIP Co de Phone Number [facility] [address] [place] [phone] * Colonoscopy (04/08/2023 1:22 PM EDT) Anatomical Region Laterality Modality Endoscopy Narrative 04/08/2023 1:22 PM EDT Pathology 7-8 mm sessile polyp, path is tubular adenoma Historical Provider MD ENDOSCOPY PROCEDURE ORDER FELIPE Final Result * [...] slide preparation; their use is not recommended. Graduate Teacher Education: SEE COMMENT [facility] Comment: JXM, CT(ASCP) CT screening location: [address] ??[phone] Interpretation/Res ult: SEE COMMENT [facility] Comment: Negative for intraepithelial lesion [...] MD LAB PATHOLOGY ORDERABLES Destiny l Result [facility] [address] * HPV mRNA E6/E7 (02/12/2021 1:16 PM EDT) HPV nRNA E6/E7 Not Detected Not Detected [facility] Comment: Methodology: [employer]-Mediated Amplification This assay detects E6/E7 viral messenger RNA (mRNA) from 14 high-risk HPV types (16,18,31,33,35,39,45,51,52,56,58,59,66,68). ? The analytical performance characteristics of this assay have been determined by [employer]. The modifications have not been cleared or approved by the FDA. This assay has been validated pursuant to the CLIA regulations and is used for clinical purposes. ?? For additional information, please refer to http://education.eVigilo/faq/STA422e7 (This link if provided for information/ educational purposes only.) 02/12/2021 1:16 PM EDT us Caryn Edmond MD LAB BLOOD ORDERABLES Final Re sult Performing Organization Address [facility]/State/ZIP Co de Phone Number [facility] [address] from Last 3 Months or Most Recently Relevant to Health Maintenance Insurance [facility] (O D-SNP) [facility] (O D-SNP) [employer] [id number] Care Teams Consumer Product Advisor Relationship Specialty Start Date End Date Caryn Edmond MD [address] [place] [phone] PCP - General Family Medicine 08/13/21
--- OUTSIDE RECORDS SUMMARY | 2025-03-06 12:18 | XMS_ITS | Encounter Summary ---
Author Organization [employer] Address [address] [facility] [address] 7t [place] [address] Care Team Providers Care Jointer Submarine Cable Name Role Phone Caryn Edmond MD Primary Care Provider [phone] Encounter Details Date Type Department Care Team (Late st Contact Info) Description 02/29/2024 Orders Only [facility] [address] [place] [address] ProviderSteve MD Social History Tobacco Use Types [...] PM EDT ? [facility] ? [address] ?[place] [address] ? Mammography Report ? Signed ? Patient: Sun,Sari ?MR#: [id number] ?? [id number] ? : 1960 ?Acct:[id number] ? Age/Sex: 63 / F ?ADM Date: 05/13/24 ? Loc: HO.MAMMO ? Attending Dr: Caryn Edmond MD ? Ordering Physician: Caryn Edmond MD ?Results: 2Beni ?? gn Findings ? Date of Service: 03/14/24 ?Follow Up: 1 Year From Orig ?? inal Mammogram ? Procedure(s): MM tomosynthesis screening BI ?? Accession Number(s): [id number] ? cc: Caryn Edmond MD ? EXAMINATION: [...] 04/14/241516 ? DD/ 29 ? TD/TT: ? Civil Project Engineer: ? Procedure Note Stephanie, Image - 04/14/2024 [facility] [address] [place], [place] [address] Mammography Report Signed Patient: Sari SunMR#: [id number] : 9Acct:[id number] Age/Sex: 63 / FADM Date: 03/14/24 Loc: HO.MAMMO Attending Dr: Caryn Edmond MD Ordering Physician: Caryn Edmond MDResults: 2Beni gn Findings Date of Service: 03/14/24Follow Up: 1 Year From Orig inal Mammogram Procedure(s): MM tomosynthesis screening BI Accession Number(s): [id number] cc: Caryn Edmond MD EXAMINATION: MM SCREENING [...] in OV> 04/14/24 1517 DD/ 1330 TD/TT: Civil Project Engineer: us Caryn Edmond MD IMG BI PROCEDURES Final Resul t * Hm Colonoscopy (11/05/2017 8:25 AM EST) us Historical Provider HEALTH MAINTENANCE Final Result documented in this encounter Visit Diagnoses Not on filedocumented in this encounter Additional Health Concerns Assessment Noted Time PHQ-9 Depression Total Score: 5 08/17/20 23 10:41 AM EDT documented as of this encounter Care Teams Jointer Submarine Cable Relationship Specialty Start Date End Date Caryn Edmond MD [address] [place] [address] PCP - General Family Medicine 08/13/21 documented as of this encounter
--- OUTSIDE RECORDS SUMMARY | 2025-03-06 12:18 | XMS_ITS | Encounter Summary ---
Author Organization [employer] Address 75 [facility] 7t [place] [address] Care Team Providers Care Silverware Buffer Name Role Phone Caryn Edmond MD Primary Care Provider [phone] Reason for Visit * Reason Onset Date Comments returning phone call 12/24/2022 Encounter Details Date Type Department Care Team ([facility] st Contact Info) Description 12/24/2022 Telephone [facility]S [address] [place], [place] [phone] Caryn Edmond MD [address] [place] [address] returning phone call Social History Tobacco Use [...] pt returning phone call. Please contact at [phone] documented in this encounter Plan of Treatment Not on file documented as of this encounter Visit Diagnoses Not on filedocumented in this encounter Additional Health Concerns Assessment Noted Time PHQ-9 Depression Total Score: 3 12/08/19 23 1:18 PM EST documented as of this encounter Care Teams Silverware Buffer Relationship Specialty Start Date End Date Caryn Edmond MD [address] [place] [address] PCP - General Family Medicine 08/13/21 documented as of this encounter
== END 2025-03-06 11:10 | disposition home or self-care (01) ==
LOC: HO.HGS 10:48
PROVIDERS: PCP Family Medicine; Visit Provider Surgery
DX: Z86.000 Personal history of in-situ neoplasm of breast (principal)
CPT/HCPCS: 99213

== ENCOUNTER → 2025-03-06 10:47 | Outpatient (BNVA) | payer OTHER, SELFPAY | PROVIDERS: PCP Family Medicine; Visit Provider Surgery | DX: Z86.000 Personal history of in-situ neoplasm of breast (principal); Z98.890 Other specified postprocedural states | CPT/HCPCS: 99212 ==

== ENCOUNTER 2025-03-16 10:41 | Outpatient (REF) | payer OTHER, SELFPAY ==
--- NOTE | ~2025-03-16 | MM_ITS ---
EXAMINATION: MM DIAGNOSTIC DIGITAL BREAST TOMOSYNTHESIS, BILATERAL CLINICAL INFORMATION: History of right breast cancer in 2021 status post lumpectomy. COMPARISON: Mammography: Comparison is made with relevant prior exams. TECHNIQUE: Digital breast mammography with tomosynthesis is performed in both the craniocaudal and mediolateral oblique views along with computer-aided detection (CAD). FINDINGS: There are scattered areas of fibroglandular density (ACR BI-RADS breast composition Category b). Post right lumpectomy changes are stable. There are no significant masses, abnormal calcifications, or other abnormalities. Results are provided to the patient at time of visit by the technologist. MM/MM tomosynthesis diagnostic BI IMPRESSION: There are no significant changes from prior study. ASSESSMENT: BI-RADS BI-RADS 2 - Benign Findings RECOMMENDATION: 1 year F/U This patient's information was entered into a reminder system with a target due date for their next mammogram. Electronically signed by: Maira Huntley DO 03/16/2025 11:42 AM EDT
--- OUTSIDE RECORDS SUMMARY | 2025-03-16 11:48 | XMS_ITS | Clinical Summary ---
Author Organization [employer] Address 75 [facility] 7t [place] [address] Care Team Providers Care Platform Supervisor Name Role Phone Caryn Edmond MD Primary Care Provider [phone] Allergies No known active allergies Medications buPROPion [...] recommended reduction of 20-30% of maintenance calories; car usher referral offered. Recommended to decrease soda and sugary beverage consumption. Recommended at least 20 g per meal of protein to assist with satiety. Recommended at least 150 min/week of moderate intensity exercise. Assessment & Plan (07/29/2023 9:45 AM EDT): Discussed calorie deficit, recommended reduction of 20-30% of maintenance calories; car usher referral offered. Recommended to decrease soda and sugary beverage consumption. Recommended at least 20 g per meal of protein to assist with satiety. Recommended at least 150 min/week of moderate intensity exercise. Assessment & Plan (05/04/2023 1:40 PM EDT): Will send labs to check levels. Encounters Date Type Department Care Team Description 03/16/2025 Orders Only [facility] External Provider, [facility] 12/29/2024 Refill [facility]EDS [address] [facility] [place] [address] Arlene Torres MD Chronic left shoulder pain from Last 3 Months Immunizations Immunization Administration Dates Next Due Influenza injectable quadriv alent IIV4 with preservative 08/04/2018,11/26/2017 Influenza injectable quadriv alent preservative free 07/29/2023,09/05/2022,08/14/2021,2019,09/07/2019,01/01/2015 Influenza, IIV3, injectable 09/05/2022 Influenza, Split (incl. brad fied surface antigen) 09/13/2013 Influenza, seasonal, injecta ble, preservative free 11/28/2024 Irvin SARS-CoV-2 Vaccination 01/16/2021 Pfizer Covid-19 Vaccine 12+ [...] - Risk 60-74 years 1-dose series) 2018 COVID-19 Vaccine ( season) 2025 11/28/2024, 11/12/2021, 01/16/2021 SDOH Screening 10/20/2025 10/20/2024 Depression Screening 11/28/2025 11/28/2024, 11/28/19 Tobacco Screening 11/28/2025 11/28/2024 HPV/Cotest 02/12/2026 02/12/2021 Pap Smear 02/12/2026 02/12/2021 Colonoscopy 04/08/2028 04/08/2023, 06/0 05/2023, 11/05/2017 Colorectal Cancer Screening 04/08/2028 Lipid Panel 11/28/2029 11/28/2024, 03/2 , 06/04/2021, Additional history exists DTaP/Tdap/Td Vaccines (3 - Td or Tdap) 01/19/2033 01/19/2023, 08/06/2010, 12/11/1994 Zoster Vaccines Completed 05/23/2020, 01/05/2020 Hepatitis C Screening Completed 07/29/2023 Influenza Vaccine Completed 11/28/2024, , 09/05/2022, Additional [...] patient's age to complete this topic Meningococcal B Vaccine Aged Out No l onger eligible based on patient's age to complete [...] Priority Date/Time Associated Diagnosis Comments BI MAMMOGRAM DIAGNOSTIC TOMOSYNTHESIS BILATERAL Routine 03/16/2025 11:00 AM EDT LIPID PANEL, STANDARD Routine 11/28/2024 2:39 PM EST Anemia, unspecified type HEPATITIS C ANTIBODY Routine 07/29/2023 9:58 AM EDT Encounter for health-related screening COLONOSCOPY Routine 04/08/2023 1:22 PM EDT HPV MRNA E6/E7 Routine 02/12/2021 1:16 PM EDT THINPREP IMAGING SYSTEM PAP Routine 02/12/2021 1:16 PM EDT from Last 3 Months or Most Recently Relevant to Health Maintenance Results * BI Mammogram Diagnostic Tomosynthesis Bilateral (03/16/2025 11:00 AM EDT) Anatomical Region Laterality Modality Breast Bilateral Mammography 03/16/2025 11:0 0 AM EDT Narrative 03/16/2025 11:45 AM EDT ? [facility] ? [address] ?[place] [address] ?[phone] ? Mammography Report ? Signed ? Patient: Sun,Sari ?MR#: [id number] ?? [id number] ? : 1960 ?Acct:[id number] ? Age/Sex: 64 / F ?ADM Date: 05/15/25 ? Loc: HO.MAMMO ? Attending : Caryn Edmond MD ? Ordering Physician: Ivan Valdes MD ?Results: 2Ben ?? ign Findings ? Date of Service: 05/15/25 ?Follow Up: 1 Year From Orig ?? inal Mammogram ? Procedure(s): MM tomosynthesis diagnostic BI ?? Accession Number(s): [id number] ? cc: Ivan Valdes MD; Caryn Edmond MD ? EXAMINATION: ?? MM DIAGNOSTIC DIGITAL BREAST TOMOSYNTHESIS, BILATERAL ? CLINICAL INFORMATION: ? History of right breast cancer in 2021 status post lumpectomy. ? COMPARISON: ?? Mammography: Comparison is made with relevant prior exams. ? TECHNIQUE: ?? Digital breast mammography with tomosynthesis is performed in both the ?? craniocaudal and mediolateral oblique views along with computer-aided ?? detection (CAD). ? FINDINGS: ?? There are scattered areas of fibroglandular density (ACR BI-RADS breast ?? composition Category b). ?? Post right lumpectomy changes are stable. ?? There are no significant masses, abnormal calcifications, or other ?? abnormalities. ? Results are provided to the patient at time of visit by the ?? technologist. ? MM/MM tomosynthesis diagnostic BI ?? IMPRESSION: ?? There are no significant changes from prior study. ? ASSESSMENT: ? BI-RADS BI-RADS 2 - Benign Findings ? RECOMMENDATION: ?? 1 year F/U ? This patient's information was entered into a reminder system with a ?? target due date for their next mammogram. ? Electronically signed by: ??Maira Huntley DO ??03/16/2025 11:42 AM EDT ? Dictated By: ?Maira Huntley DO ? Signed By: ?<Electronically signed by Maira Huntley, DO in OV> ? 03/16/25 1142 ? DD/ 1100 ? TD/TT: 03/16/25 1129 ? Nuclear Auxiliary Operator: ? Procedure Note Julee Brown - 03/16/2025 [facility] [address] [place] [address] Dr. [place], [place] [address] Mammography Report Signed Patient: Sari SunMR#: [id number] : 9Acct:[id number] Age/Sex: 64 / FADM Date: 03/16/25 Loc: HO.MAMMO Attending Dr: Caryn Edmond MD Ordering Physician: Ivan Valdes MDResults: 2Ben ign Findings Date of Service: 03/16/25Follow Up: 1 Year From Orig inal Mammogram Procedure(s): MM tomosynthesis diagnostic BI Accession Number(s): [id number] cc: Ivan Valdes MD; Caryn Edmond MD EXAMINATION: MM DIAGNOSTIC DIGITAL BREAST TOMOSYNTHESIS, BILATERAL CLINICAL INFORMATION: History of right breast cancer in 2021 status post lumpectomy. COMPARISON: Mammography: Comparison is made with relevant prior exams. TECHNIQUE: Digital breast mammography with tomosynthesis is performed in both the craniocaudal and mediolateral oblique views along with computer-aided detection (CAD). FINDINGS: There are scattered areas of fibroglandular density (ACR BI-RADS breast composition Category b). Post right lumpectomy changes are stable. There are no significant masses, abnormal calcifications, or other abnormalities. Results are provided to the patient at time of visit by the technologist. MM/MM tomosynthesis diagnostic BI IMPRESSION: There are no significant changes from prior study. ASSESSMENT: BI-RADS BI-RADS 2 - Benign Findings RECOMMENDATION: 1 year F/U This patient's information was entered into a reminder system with a target due date for their next mammogram. Electronically signed by: Maira Huntley DO 03/16/2025 11:42 AM EDT Dictated By: Maira Huntley DO Signed By: <Electronically signed by Maira Huntley DO in OV> 03/16/25 1142 DD/ 1100 TD/TT: 03/16/25 1129 Nuclear Auxiliary Operator: us [facility] External Provider IMG BI PROCEDURES Final Result * Lipid Panel, Standard (11/28/2024 2:39 PM EST) Triglycerides 62 <150 mg/dL [facility] Comment:Desirable Triglyceri de: less than 150 mg/dLBorderline High Triglyceride 150-199 mg/dLHigh Triglyceride: 200-499 mg/dLVery High Triglyceride: greater than or equal to 5OO mg/dL Cholesterol 158 <200 mg/dL [facility] Comment:Desirable Cholestero l: less than 200 mg/dLBorderline High Cholesterol: 200-239 mg/dLHigh Cholesterol: greater than 239 mg/dL LDL Cholesterol Calculated 86 <100 mg/dL [facility] Comment:Desirable LDL: less than 100 mg/dLNear Optimal/Above Optimal LDL: 110- 129 mg/dLBorderline High LDL: 130-159 mg/dLHigh LDL: 160-189 mg/dLVery High LDL: greater than or equal to 190 mg/dL HDL Cholesterol 60 >40 mg/dL [facility] Comment:Desirable HDL: great er than 40 mg/dL Note: This HDL assay may give artificially low results in patients with liver disease. Blood Venous blood specimen / Unknown 11/28/2024 2:39 PM EST 11/28/2024 5:46 PM EST us Arlene Torres MD LAB BLOOD ORDERABLES Final Result Performing Organization Address [facility] Co de Phone Number [facility] [address] [place] [phone] * Hepatitis C Ab (07/29/2023 9:58 AM EDT) Hepatitis C Antibody Nonreactive Nonreactive [facility] Comment:Antibodies to HCV no t detected; does not exclude early acuteHCV infection. Blood 07/29/2023 9:58 AM EDT 07/29/2023 2:42 PM EDT us Caryn Edmond MD LAB BLOOD ORDERABLES Final Re sult Performing Organization Address [facility] Co de Phone Number [facility] [address] [place] [address] [phone] * Colonoscopy (04/08/2023 1:22 PM EDT) [...] slide preparation; their use is not recommended. Furnace Fitter: SEE COMMENT [facility] Comment: JXM, CT(ASCP) CT screening location: [address] ??[phone] Interpretation/Res ult: SEE COMMENT [facility] Comment: Negative for intraepithelial lesion or malignancy. Atrophic pattern; predominantly parabasal cells LMP: NONE [facility] Prev. BX: NONE [facility] Prev. PAP: NONE [facility] SOURCE: None given [facility] Statement Of Adequacy: SATISFACTORY FOR EVALUATION [facility] 02/12/2021 1:16 PM EDT Caryn Edmond MD LAB PATHOLOGY ORDERABLES Destiny back Result [facility] [address] * HPV mRNA E6/E7 (02/12/2021 1:16 PM EDT) HPV nRNA E6/E7 Not Detected Not Detected [facility] Comment: Methodology: Field Crop Farmer-Mediated Amplification This assay detects E6/E7 viral messenger RNA (mRNA) from 14 high-risk HPV types (16,18,31,33,35,39,45,51,52,56,58,59,66,68). ? The analytical performance characteristics of this assay have been determined by markedup. The modifications have not been cleared or approved by the FDA. This assay has been validated pursuant to the CLIA regulations and is used for clinical purposes. ?? For additional information, please refer to http://education.Orgger/faq/FTR820s7 (This link if provided for information/ educational purposes only.) 02/12/2021 1:16 PM EDT us Caryn Edmond MD LAB BLOOD ORDERABLES Final Re sult [facility] Any[address] from Last 3 Months or Most Recently Relevant to Health Maintenance Insurance [id number] [facility] INTERMEDIATE OPTIONS (O D-SNP) [facility] INTERMEDIATE OPTIONS (O D-SNP) [employer] [id number] Care Teams Platform Supervisor Relationship Specialty Start Date End Date Caryn Edmond MD [address] [place] [phone] PCP - General Family Medicine 08/13/21
--- OUTSIDE RECORDS SUMMARY | 2025-03-16 11:48 | XMS_ITS | Encounter Summary ---
Author Organization [employer] Address [address] [facility] [address]t [place] [address] Care Team Providers Care Varnisher Apprentice Name Role Phone Caryn Edmond MD Primary Care Provider [phone] Encounter Details Date Type Department Care Team (Late st Contact Info) Description 02/29/2024 Orders Only [facility] [address] [place] [address] Provider, MD Steve Social History Tobacco Use Types Packs/Day Years [...] EDT Narrative 04/14/2024 3:21 PM EDT ? [facility] ? [address] ?[place] [address] ? Mammography Report ? Signed ? Patient: Sun,Sari ?MR#: [id number] ?? [id number] ? : 1960 ?Acct:[id number] ? Age/Sex: 63 / F ?ADM Date: 05/13/24 ? Loc: HO.MAMMO ? Attending Dr: Caryn Edmond MD ? Ordering Physician: Caryn Edmond MD ?Results: 2Beni ?? gn Findings ? Date of Service: 05/13/24 ?Follow Up: 1 Year From Orig ?? inal Mammogram ? Procedure(s): MM tomosynthesis screening BI ?? Accession Number(s): [id number] ? cc: Caryn Edmond MD ? EXAMINATION: [...] 04/14/241516 ? DD/ 29 ? TD/TT: ? Sweet Potato Disintegrator: ? Procedure Note Stephanie, Image - 04/14/2024 [facility] [address] [place] [address] [place] [address] Mammography Report Signed Patient: Sari SunMR#: [id number] : 9Acct:[id number] Age/Sex: 63 / FADM Date: 03/14/24 Loc: HO.MAMMO Attending Dr: Caryn Edmond MD Ordering Physician: Caryn Edmond MDResults: 2Beni gn Findings Date of Service: 03/14/24Follow Up: 1 Year From Orig ina Mammogram Procedure(s): MM tomosynthesis screening BI Accession Number(s): [id number] cc: Caryn Edmond MD EXAMINATION: MM SCREENING [...] in OV> 04/14/24 1517 DD/ 1330 TD/TT: Sweet Potato Disintegrator: Caryn Edmond MD IMG BI PROCEDURES Final Resul t * Hm Colonoscopy (11/05/2017 8:25 AM EST) us Historical Provider HEALTH MAINTENANCE Final Result documented in this encounter Visit Diagnoses Not on filedocumented in this encounter Additional Health Concerns Assessment Noted Time PHQ-9 Depression Total Score: 5 08/17/20 23 10:41 AM EDT documented as of this encounter Care Teams Varnisher Apprentice Relationship Specialty Start Date End Date Caryn Edmond MD [address] [place] [address] PCP - General Family Medicine 08/13/21 documented as of this encounter
--- OUTSIDE RECORDS SUMMARY | 2025-03-16 11:48 | XMS_ITS | Encounter Summary ---
Author Organization [employer] Address [address] [facility] [address] 7[address] [place] [address] Care Team Providers Care Hedge Fund Principal Name Role Phone Caryn Edmond MD Primary Care Provider [phone] Encounter Details Date Type Department Care Team (Late st Contact Info) Description 09/17/2023 Abstract [facility] MEDICINE [address] [place] [address] Misty Pereira Social History Tobacco Use Types [...] documented as of this encounter Care Teams Hedge Fund Principal Relationship Specialty Start Date End Date Caryn Edmond MD [address] [place] [phone] PCP - General Family Medicine 08/13/21 documented as of this encounter
--- OUTSIDE RECORDS SUMMARY | 2025-03-16 11:48 | XMS_ITS | Encounter Summary ---
Author Organization [employer] Address 75 [facility] 7t [place] [address] Care Team Providers Care Mortgage Accounting Clerk Name Role Phone Caryn Edmond MD Primary Care Provider [phone] Reason for Visit * Reason Onset Date Comments returning phone call 12/24/2022 Encounter Details Date Type Department Care Team ([facility] st Contact Info) Description 12/24/2022 Telephone C [facility] [address] [place], [place] [phone] Caryn Edmond MD [address] [place], [place] [phone] returning phone call Social History Tobacco Use [...] pt returning phone call. Please contact at [phone] documented in this encounter Plan of Treatment Not on file documented as of this encounter Visit Diagnoses Not on filedocumented in this encounter Additional Health Concerns Assessment Noted Time PHQ-9 Depression Total Score: 3 12/08/19 23 1:18 PM EST documented as of this encounter Care Teams Mortgage Accounting Clerk Relationship Specialty Start Date End Date Caryn Edmond MD [address] [place] [address] PCP - General Family Medicine 08/13/21 documented as of this encounter
== END 2025-03-16 10:42 | disposition home or self-care (01) ==
LOC: HO.MAMMO 10:41
PROVIDERS: PCP Family Medicine; Visit Provider Family Medicine
DX: Z85.3 Personal history of malignant neoplasm of breast (principal)
CPT/HCPCS: 77062; 77066

== ENCOUNTER → 2025-03-16 11:00 | Outpatient (BNV) | payer OTHER, SELFPAY | PROVIDERS: PCP Family Medicine; Visit Provider Internal Medicine | DX: Z85.3 Personal history of malignant neoplasm of breast (principal) | CPT/HCPCS: 77066; G0279 ==